=== PATIENT | female | born 1940 | race Caucasian/White ===

== ENCOUNTER 2017-11-19 15:29 | Inpatient (IN) | payer MEDICARE, OTHER ==
[~2017-11-19] VITALS: Ht 160 cm; Wt 90.7 kg
--- NOTE | 2017-11-19 15:48 | ED Fall/Injury ---
General Stated Complaint: FALL/R ANKLE FX Source: patient Exam Limitations: no limitations History of Present Illness Date Seen by Provider: Nov 19, 2017 Time Seen by Provider: 15:42 Initial Comments The patient is a 77-year-old white female who presents by ambulance with the a fall at her home and an obvious ankle fracture. The patient relates that she was preparing to enter their swimming pool for the purposes of starting to clean it up in order to refill the pool. She slipped and fell to the ground with right ankle pain. Ambulance reported to us ahead of time that they had a deformed right ankle and a medial traumatic laceration. Occurred: just prior to arrival Injuries/Pain Location: lower extremity Context: lost balance, slipped Loss of Consciousness: no loss of consciousness Allergies and Home Medications Patient Home Medication List Home Medication List Reviewed: No Review of Systems Review of Systems Constitutional: see HPI Eyes: No Symptoms Reported Ears, Nose, Mouth, Throat: no symptoms reported Respiratory: no symptoms reported Cardiovascular: no symptoms reported Gastrointestinal: no symptoms reported Genitourinary: no symptoms reported Musculoskeletal: see HPI Skin: see HPI Psychiatric/Neurological: No Symptoms Reported Physical Exam Vital Signs Capillary Refill : Height, Weight, BMI Height: '" Weight: lbs. oz. 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 There is a 10 cm or greater jagged laceration over the medial distal tibia. Distal to the laceration there is a bony deformity with distraction medially and the foot presents lateral to the midline. Daphne Coma Score Best Eye Response: (4) Open Spontaneously Best Verbal Response: (5) Oriented Best Motor Response: (6) Obeys Commands Progress/Results/Core Measures Results/Orders Lab Results Laboratory Tests Test 11/19/17 15:39 Range/Units White Blood Count 11.9 H 4.3-11.0 10^3/uL Red Blood Count 4.20 L 4.35-5.85 10^6/uL Hemoglobin 12.8 11.5-16.0 G/DL Hematocrit 38 35-52 % Mean Corpuscular Volume 90 80-99 FL Mean Corpuscular Hemoglobin 31 25-34 PG Mean Corpuscular Hemoglobin Concent 34 32-36 G/DL Red Cell Distribution Width 13.4 10.0-14.5 % Platelet Count 331 130-400 10^3/uL Mean Platelet Volume 10.3 7.4-10.4 FL Neutrophils (%) (Auto) 58 42-75 % Lymphocytes (%) (Auto) 32 12-44 % Monocytes (%) (Auto) 9 0-12 % Eosinophils (%) (Auto) 1 0-10 % Basophils (%) (Auto) 0 0-10 % Neutrophils # (Auto) 6.9 1.8-7.8 X 10^3 Lymphocytes # (Auto) 3.8 1.0-4.0 X 10^3 Monocytes # (Auto) 1.1 H 0.0-1.0 X 10^3 Eosinophils # (Auto) 0.2 0.0-0.3 10^3/uL Basophils # (Auto) 0.0 0.0-0.1 10^3/uL Sodium Level 140 135-145 MMOL/L Potassium Level 4.2 3.6-5.0 MMOL/L Chloride Level 105 98-107 MMOL/L Carbon Dioxide Level 21 21-32 MMOL/L Anion Gap 14 5-14 MMOL/L Blood Urea Nitrogen 18 7-18 MG/DL Creatinine 0.92 0.60-1.30 MG/DL Estimat Glomerular Filtration Rate 59 BUN/Creatinine Ratio 20 Glucose Level 94 70-105 MG/DL Calcium Level 9.6 8.5-10.1 MG/DL Corrected Calcium 9.6 8.5-10.1 MG/DL Total Bilirubin 0.7 0.1-1.0 MG/DL Aspartate Amino Transf (AST/SGOT) 14 5-34 U/L Alanine Aminotransferase (ALT/SGPT) 16 0-55 U/L Alkaline Phosphatase 63 40-136 U/L Total Protein 7.7 6.4-8.2 GM/DL Albumin 4.0 3.2-4.5 GM/DL My Orders Orders - OPAL MONTES MD Cbc With Automated Diff (11/19/17 15:37) Comprehensive Metabolic Panel (11/19/17 15:37) Ankle, Right, 3 Views (11/19/17 15:37) Cefazolin Injection (Ancef Injection) (11/19/17 15:58) Medications Given in ED Current Medications Medications Dose Ordered Sig/Carol Ann Route Start Time Stop Time Status Last Admin Dose Admin Cefazolin Sodium 1,000 mg STK-MED ONCE .ROUTE 11/19/17 15:58 11/19/17 16:02 DC 11/19/17 16:07 2,000 MG Departure Communication (Admissions) Dr. Elizabeth was informed at 1540 and is in route. r. Dr. Elizabeth arrived at 1555. He Examined the patient and she will be going from here to the emergency room Impression Primary Impression: trimalleolar fracture dislocation right ankle, open Disposition: ADMITTED INPATIENT Condition: Stable/Unchanged Admissions Decision to Admit Reason: Admit from ER (Trauma) Decision to Admit/Date: Nov 19, 2017 Time/Decision to Admit Time: 16:16 Departure-Patient Inst. Referrals: BETTYE LÓPEZ MD (PCP) Primary Care Physician OPAL MONTES MD Nov 19, 2017 15:48
[2017-11-19 15:53] LABS: BASOPHILS % (AUTO) 0 % (0-10); EOSINOPHILS # (AUTO) 0.2 10^3/uL (0.0-0.3); EOSINOPHILS % (AUTO) 1 % (0-10); HEMATOCRIT 38 % (35-52); HEMOGLOBIN 12.8 G/DL (11.5-16.0); LYMPHOCYTES # (AUTO) 3.8 X 10^3 (1.0-4.0); LYMPHOCYTES % (AUTO) 32 % (12-44); MEAN CORPUSCULAR HEMOGLOBIN 31 PG (25-34); MEAN CORPUSCULAR HGB CONC 34 G/DL (32-36); MEAN CORPUSCULAR VOLUME 90 FL (80-99); MEAN PLATELET VOLUME 10.3 FL (7.4-10.4); MONOCYTES # (AUTO) 1.1 X 10^3 (0.0-1.0); MONOCYTES % (AUTO) 9 % (0-12); NEUTROPHILS # (AUTO) 6.9 X 10^3 (1.8-7.8); NEUTROPHILS % (AUTO) 58 % (42-75); PLATELET COUNT 331 10^3/uL (130-400); RED CELL DISTRIBUTION WIDTH 13.4 % (10.0-14.5); WHITE BLOOD COUNT 11.9 10^3/uL (4.3-11.0)
[2017-11-19] MEDS ORDERED: ceFAZolin 1,000 MG/10 ML (ANCEF) VIAL ONE (15:58)
[2017-11-19 16:04] LABS: BILIRUBIN,TOTAL 0.7 MG/DL (0.1-1.0); CALCIUM 9.6 MG/DL (8.5-10.1); CREATININE SERUM 0.92 MG/DL (0.60-1.30); POTASSIUM 4.2 MMOL/L (3.6-5.0); TOTAL PROTEIN 7.7 GM/DL (6.4-8.2)
--- NOTE | 2017-11-19 16:16 | Diagnostic Imaging Report ---
EXAMINATION: Two views of the left ankle. INDICATION: Fall in pool. Ankle trauma. FINDINGS: There is a severe left ankle fracture and dislocation. The distal tibia and fibula are anteriorly dislocated relative to the talar dome. The tibia also appears to be medially dislocated relative to the talus. There are fractures of the medial malleolus and the posterior malleolus as well as apparent fractures within the distal fibula. There appears to be a large soft tissue injury overlying the medial aspect of the ankle. The bone of the distal tibia is at the skin surface and this may have been an open fracture at one time. IMPRESSION: Complex and severe left ankle fracture and dislocation with large soft tissue injury suggesting that this was likely previously an open fracture. Dictated by: Dictated on workstation # [id number]
[2017-11-19] MEDS ORDERED: ROCURONIUM 10 MG/ML 5 ML SYRINGE IV ONE (16:22)
[2017-11-19] MEDS ORDERED: ONDANSETRON 4 MG/2 ML (SDV) Z0FRAN ONE (16:22)
[2017-11-19] MEDS ORDERED: fentaNYL INJECTION 100 MCG/2 ML AMP ONE ×2 (16:22→16:27)
[2017-11-19] MEDS ORDERED: proPOfol 200 MG/20 ML (DIPRIVAN) VIAL IV ONE ×2 (16:22→17:52)
[2017-11-19] MEDS ORDERED: LIDOCAINE PF 2% 5 ML (XYLOCAINE) VIAL ONE (16:22)
[2017-11-19] MEDS ORDERED: SUCCINYLCHOLINE INJ 100 MG/5 ML SYR ONE (16:22)
[2017-11-19] MEDS ORDERED: raNItidine 50 MG/2 ML INJ (ZANTAC) ONE (16:23)
[2017-11-19] MEDS ORDERED: NS (IVPB) 50 ML ONE (16:23)
--- NOTE | 2017-11-19 16:25 | Progress Note-Pre Operative ---
Pre-Operative Progress Note H&P Reviewed The H&P was reviewed, patient examined and no changes noted. Date Seen by Provider: Nov 19, 2017 Time Seen by Provider: 16:00 Date H&P Reviewed: Nov 19, 2017 Time H&P Reviewed: 16:24 Pre-Operative Diagnosis: grade I open trimalleolar ankle fracture with complex wound CARLOS MALLOY MD Nov 19, 2017 16:25
--- NOTE | 2017-11-19 16:28 | Progress Note-Post Operative ---
Post-Operative Progess Note Surgeon (s)/General Education Professor (s) Surgeon CARLOS MALLOY MD General Education Professor: Matthew Rivera Pre-Operative Diagnosis grade I open trimalleolar ankle fracture with complex laceration Post-Operative Diagnosis grade I open, displaced medial malleolus fracture closed, displaced lateral malleolus fracture closed, displaced posterior malleolus fracture complex laceration 10 cm Procedure & Operative Findings Date of Procedure 11/19/17 Procedure Performed/Findings irrigation and debridement of right ankle excision of right medial malleolus fragments open reduction and internal fixation of right lateral malleolus closure of complex laceration 10 cm Anesthesia Type GETA Estimated Blood Loss Estimated blood loss (mL): 150 ml Specimens/Packing Specimens Removed none Packing: none CARLOS MALLOY MD Nov 19, 2017 16:28
[2017-11-19] MEDS ORDERED: LEVO75TA6 PO (16:30)
[2017-11-19] MEDS ORDERED: VALS1TAB5 PO (16:30)
[2017-11-19] MEDS ORDERED: ESOM20SU PO (16:30)
[2017-11-19] MEDS ORDERED: ATEN50TA PO (16:30)
[2017-11-19] MEDS ORDERED: POTA25TA7 PO (16:30)
[2017-11-19] MEDS ORDERED: PRAV20TA3 PO (16:30)
[2017-11-19] MEDS ORDERED: MIDAZOLAM 2 MG/2 ML (VERSED) VIAL ONE ×2 (16:39→17:53)
[2017-11-19] MEDS ORDERED: SEVOFLURANE (ULTANE) 15 ML INHAL SOLN ONE ×5 (16:40→18:30)
[2017-11-19] MEDS ORDERED: BUPIVACAINE 0.5% 30 ML (SENSORCAINE) VIAL ONE (16:43)
[2017-11-19] MEDS ORDERED: morphine INJ 10 MG/ML 1ML (SYR OR VIAL) IVP PRN (16:45)
[2017-11-19] MEDS ORDERED: ACETAMINOPHEN 325 MG TABLET PO PRN (16:45)
[2017-11-19] MEDS ORDERED: ONDANSETRON 4 MG/2 ML (SDV) Z0FRAN IVP PRN ×2 (16:45→19:00)
--- NOTE | 2017-11-19 16:53 | HISTORY AND PHYSICAL ---
DATE OF SERVICE: 11/19/2017 REASON FOR ADMISSION: 1. Grade I open displaced right medial malleolus fracture. 2. Closed displaced right lateral malleolus fracture. HISTORY: The patient is a 77-year-old female, who presented to the Emergency Department with gross deformity of her right ankle with a laceration proximal to the fracture site. She reports that she slipped in water in her pool. She reports no antecedent pain. She reports pain in her ankle. She denies paresthesias. PAST MEDICAL HISTORY: Significant for hypertension. PAST SURGICAL HISTORY: Left total knee arthroplasty. MEDICATIONS: Are listed in the chart. ALLERGIES: TO CODEINE, but the patient does tolerate hydrocodone and oxycodone. PHYSICAL EXAMINATION: GENERAL: The patient is well developed, well-nourished, in mild distress. HEENT: Normocephalic, atraumatic. Pupils are equal, round and reactive to light. Oropharynx is . NECK: Supple. No lymphadenopathy. LUNGS: Clear to auscultation bilaterally. HEART: Regular rate and rhythm. ABDOMEN: Soft, nontender, nondistended. EXTREMITIES EXAM: The right lower extremity demonstrates lateral rotation of the foot compared to the leg. There are symmetric pulses noted with brisk capillary refill. She has intact sensation throughout with intact dorsiflexion and plantarflexion of the toes. There is approximately 10 cm clean laceration proximal to the ankle joint. There is a single punctate wound at the fracture site medially. This appears to be the only area that actually communicates with the fracture. Radiographs reveal a trimalleolar right ankle fracture with displacement and lateral posterior dislocation of the talus. IMPRESSION: Right ankle fracture dislocation, grade I open medially. PLAN: The patient was given 2 grams of Ancef on arrival to the Emergency Department. We will take her emergently to the operating room for irrigation, debridement, open reduction and internal fixation of the right ankle. We discussed risks, benefits, options, ramifications and recovery with the patient and her family, they understand and wished to proceed. Job ID: [id number] DocumentID: [id number] Dictated Date: 11/19/2017 16:22:33 Independent Insurance Adjuster Date: 11/19/2017 16:53:04 Dictated By: CARLOS MALLOY MD
[2017-11-19] MEDS ORDERED: LACTATED RINGERS 1,000 ML IV PRN (16:59)
[2017-11-19] MEDS ORDERED: HYDROmorphone 2 MG/ML VIAL (DILAUDID) ONE (17:54)
--- NOTE | 2017-11-19 18:43 | Diagnostic Imaging Report ---
INDICATION: Right ankle fracture IMPRESSION: 22.7 seconds of fluoroscopy and 4 digital images were used in surgery during internal fixation of the lateral malleolus with plate and screws. Bones appear to be transfixed in good alignment. Dictated by: Dictated on workstation # [id number]
[2017-11-19] MEDS ORDERED: MEPERIDINE (DEMEROL) INJ 50 MG/ML ONE (18:57)
[2017-11-19] MEDS ORDERED: MEPERIDINE (DEMEROL) INJ 100 MG/ML IVP ONE ×2 (19:00→19:45)
[2017-11-19] MEDS ORDERED: PROMETHAZINE INJ 25 MG/ML (PHENERGAN) AMP IVP PRN (19:00)
[2017-11-19] MEDS ORDERED: morphine INJ 10 MG/ML 1ML (SYR OR VIAL) IVP ONE (19:00)
[2017-11-19] MEDS ORDERED: HYDROmorphone 2 MG/ML VIAL (DILAUDID) IV ONE ×2 (19:00→19:30)
[2017-11-19] MEDS ORDERED: MEPERIDINE (DEMEROL) INJ 50 MG/ML IVP ONE (19:30)
--- NOTE | 2017-11-19 19:51 | OPERATIVE REPORT ---
DATE OF SERVICE: 11/19/2017 PREOPERATIVE DIAGNOSES: 1. Grade I open displaced right medial malleolus fracture. 2. Closed displaced right lateral malleolus fracture. 3. Complex laceration, right leg. POSTOPERATIVE DIAGNOSES: 1. Grade I open displaced right medial malleolus fracture. 2. Closed displaced right lateral malleolus fracture. 3. Complex laceration, right leg. PROCEDURES: 1. Right ankle irrigation and debridement. 2. Open reduction and internal fixation of the right lateral malleolus. 3. Excision of right medial malleolus fragment. 4. Closure of complex laceration, right leg. SURGEON: Tejinder Elizabeth MD SUPERVISOR COVERING AND LINING: DONY Prieto, who assisted throughout the procedure and closed the incisions. ANESTHESIA: General endotracheal by Isai Gar CRNA. TOURNIQUET TIME: Not applicable. ESTIMATED BLOOD LOSS: Minimal. DRAINS: None. COMPLICATIONS: None. POSTOPERATIVE PLAN: 24 hours of IV antibiotics with admission for physical therapy and pain management. SUMMARY: The patient is a 77-year-old female, who fell at home and was found to have a deformity of her right ankle with a laceration. She was brought in by EMS and I was here shortly after her arrival. She was given 2 grams of Ancef IV. There was approximately 10 cm laceration well proximal to her ankle with a single punctate wound medially at the fracture site that appeared to be a grade I open fracture. She was neurovascularly intact. Radiographs reveal a bimalleolar fracture dislocation of the ankle. A gentle attempt at closed reduction was tried and this was not reduced. The patient was taken emergently to the operating room for operative intervention. The patient and her family understand this is a high risk wound complications and fracture complications. DESCRIPTION OF PROCEDURE: After risks and benefits of procedure were discussed and questions were answered and informed consent was signed and placed on chart, the operative site was confirmed in the preoperative holding area initialed by the surgeon. The patient was then transferred to the operating room. After adequate levels of general endotracheal anesthetic were obtained, a timeout was called confirming the operative site. The fracture dislocation was reduced easily. The right lower extremity was then prepped and draped in the usual sterile fashion. The proximal laceration was carefully probed and did not communicate with the fracture site. This was irrigated and closed with 3-0 nylon in vertical mattress interrupted fashion. The punctate wound distally was then incised opening the fracture site and irrigated with 6 liters pulse lavage. The fracture was reduced; however, there were multiple fracture fragments that could not be reapproximated nor could may be K-wired. Therefore, the fracture was excised. This wound was copiously irrigated. A 2-0 Vicryl was used to reapproximate subcutaneous tissues and skin was closed with 4-0 nylon in vertical mattress interrupted fashion. A longitudinal incision was then made over the distal fibula. The underlying soft tissues were carefully dissected. The fracture site was identified. This was transverse in nature; therefore, a lag screw could not be placed. The fracture was reduced and a 6-hole one third tubular plate was placed with two cancellous screws placed distally and three cortical screws placed proximally, all with good purchase. Fluoroscopy in AP and lateral and oblique planes revealed well reduced fracture with stable hardware. The syndesmosis and mortise were stable till live time fluoroscopy stressing. This wound was copiously irrigated, 2-0 Vicryl was used to reapproximate subcutaneous tissue and skin was closed with 4-0 nylon in a vertical mattress interrupted fashion. The incisions were infiltrated with plain Marcaine. A soft dressing and splint were applied. The patient was transported to the recovery room, awake, in stable condition. Job ID: [id number] DocumentID: [id number] Dictated Date: 11/19/2017 18:45:37 Embroidery Assistant Date: 11/19/2017 19:50:31 Dictated By: TEJINDER ELIZABETH MD
[2017-11-19 20:00] VITALS: BP 119/61
[2017-11-19] MEDS: NS IV 1000 ML 1,000 ML IV SCH (20:56)
[2017-11-19] MEDS: ceFAZolin INJECTION 1,000 MG in NS (IVPB) 50 ML IV SCH (23:36)
[2017-11-20 00:29] VITALS: BP 107/52
[2017-11-20] MEDS: oxyCODONE/APAP 5/325MG (PERCOCET 5) TABLET PO PRN ×6 (02:13→22:58)
[2017-11-20] MEDS: NS IV 1000 ML 1,000 ML IV SCH ×3 (03:14→20:56)
[2017-11-20 04:00] VITALS: BP 115/58
[2017-11-20] MEDS: ceFAZolin INJECTION 1,000 MG in NS (IVPB) 50 ML IV SCH ×3 (05:27→20:57)
[2017-11-20] MEDS ORDERED: OXYC1TAB87 PO (07:56)
--- NOTE | 2017-11-20 07:58 | Progress Note-Standard ---
Standard Progress Note Progress Notes/Assess & Plan Date Seen by Provider: Nov 20, 2017 Time Seen by Provider: 07:56 Progress/Assessment & Plan No complaints denies paresthesias Vital Signs Date Time Temp Pulse Resp B/P (MAP) Pulse Ox O2 Delivery O2 Flow Rate FiO2 11/20/17 04:00 98.8 71 20 115/58 (77) 97 Nasal Cannula 1.00 11/20/17 00:29 98.2 81 18 107/52 (70) 96 Room Air 11/19/17 20:00 96.8 67 16 119/61 (80) 99 Nasal Cannula 3.00 11/19/17 19:55 Nasal Cannula 3.00 11/19/17 16:59 88 18 143/70 99 11/19/17 15:30 97.5 79 18 158/53 (88) 97 I & O 11/20/17 07:00 Intake Total 1250 ml Output Total 950 ml Balance 300 ml RLE--in splint. intact DF and PF of toes sensation intact to light touch throughout. No pain with PROM of toes S/P I and D and ORIF R ankle PT IV abx DC this evening after abx if clears PT CARLOS MALLOY MD Nov 20, 2017 07:58
[2017-11-20 08:00] VITALS: BP 115/53
--- NOTE | 2017-11-20 10:22 | Physical Therapy Evaluation ---
PT Evaluation-General Medical Diagnosis Admission Date Nov 20, 2017 at 02:35 Medical Diagnosis: right ankle fracture Onset Date: Nov 20, 2017 Therapy Diagnosis Therapy Diagnosis: generalized weakness/debility Height/Weight Height (Feet): 5 Height (Inches): 3.00 Weight (Pounds): 200 Weight (Ounces): 0.0 Precautions Precautions/Isolations: Fall Prevention, Standard Precautions, Pressure Ulcer Weight Bear Status Right Lower Extremity: Right Touch Toe Bearing Left Lower Extremity: Left Full Weight Bearing Referral Physician: Clara Reason for Referral: Evaluation/Treatment Medical History Pertinent Medical History: HTN Current History slipped and felling getting into pool at home Reviewed History: Yes Social History Home: Single Level Current Living Status: Spouse Entry Into Home: Stairs Without Railing PT Steps Inside Home: 4 Prior/Core FIM Prior Level of Function Functional [place] Measure 0=Not Assessed/NA 4=Minimal Assistance 1=Total Assistance 5=Supervision or Setup 2=Maximal Assistance 6=Modified [place] 3=Moderate Assistance 7=Complete [place] Bed Mobility: 7 Transfers (B,C,W/C) (FIM): 7 Gait: 7 Locomotion: 7 PT Evaluation-Current Subjective Patient agrees to PT. Pain Numeric Pain Scale: 7 Location: Right Location Body Site: Ankle Pain Description: Acute Objective Patient Orientation: Normal For Age Problem Solving: Fair Attachments: IV ROM/Strength ROM Lower Extremities right ankle soft cast/left LE WFL Strength Lower Extremities right LE NT/left LE 4-/5 grossly Integumentary/Posture Integumentary refer to nursing notes Bowel Incontinence: No Bladder Incontinence: No Posture WFL Neuromuscular (Tone, Coordination, Reflexes) slightly diminished coordination due to report of fear of falling Sensory Vision: Functional Hearing: Functional Sensation Right Lower Extremit: Intact Sensation Left Lower Extremity: Intact Transfers Functional [place] Measure 0=Not Assessed/NA 4=Minimal Assistance 1=Total Assistance 5=Supervision or Setup 2=Maximal Assistance 6=Modified [place] 3=Moderate Assistance 7=Complete [place] Transfers (B, C, W/C) (FIM): 3 Scootin Rollin Supine to/from Sit: 3 Sit to/from Stand: 3 Gait Mode of Locomotion: Walk Anticipated Mode of Locomotion: Both Gait (FIM): 1 Distance (FIM): 1=up to 49 ft Distance: 2 hops Gait Level of Assist: 3 Gait Persons Needed: 1 Gait Assistive Device: FWW Comments/Gait Description able to "hop" x 2, and unable to attempt knee scooter due to fear and instability with coordination Balance Sitting Static: Normal Sitting Dynamic: Normal Standing Static: Fair Standing Dynamic: Fair Assessment/Needs 77 y.o. female, will benefit from skilled PT to address functional strength and mobility to improve current LOF and to safely return to home with spouse at maximum LOF. From a PT standpoint, patient would benefit from ARU to ensure safe return to home. Rehab Potential: Fair PT Territory Manager Goals Prison Goals PT Prison Goals Time Frame: Dec 02, 2017 Transfers (B,C,W/C) (FIM): 6 Gait (FIM): 1 Gait distance (FIM): 1=up to 49 ft Distance: 10' Gait Level of Assist: 5 Gait Assistive Device: FWW Stairs (FIM): 2 # of Steps: 4 Stairs Level Of Assist: 4 PT Plan Problem List Problem List: Activity Tolerance, Functional Strength, Safety, Balance, Gait, Transfer, Bed Mobility Treatment/Plan Treatment Plan: Continue Plan of Care Treatment Plan: Bed Mobility, Education, Functional Activity Main, Functional Strength, Gait, Safety, Therapeutic Exercise, Transfers Treatment Duration: Dec 02, 2017 Frequency: 11 times per week Estimated Hrs Per Day: .5 hour per day Patient and/or Family Agrees t: Yes Discharge Recommendations Therapy D/C Recommendations: Acute Rehab Time/GCodes Time In: 840 Time Out: 910 Total Billed Treatment Time: 30 Total Billed Treatment 1 visit EVModC 17 min FA 13 min G Codes Necessary: KAELYN Klein PT Nov 20, 2017 10:22
[2017-11-20] MEDS ORDERED: PRAV10TA PO (10:55)
[2017-11-20] MEDS ORDERED: ATEN25TA PO (10:55)
[2017-11-20] MEDS ORDERED: ESOM20CA58 PO (10:55)
[2017-11-20] MEDS ORDERED: POTA10CA43 PO (10:55)
[2017-11-20] MEDS ORDERED: VALS1TAB72 PO (10:55)
[2017-11-20] MEDS ORDERED: LYSI500T3 PO (11:00)
[2017-11-20] MEDS ORDERED: ASPI-983 PO (11:00)
[2017-11-20 12:00] VITALS: BP 126/60
[2017-11-20] MEDS ORDERED: NON-FORMULARY MEDICATION 1 EA EA (Esomeprazole Magnesium (Nexium 24Hr) 20 MG) PO SCH ×2 (12:30→21:00)
[2017-11-20] MEDS: PANTOPRAZOLE 20 MG TABLET (PROTONIX) PO SCH ×2 (13:27→20:58)
--- NOTE | 2017-11-20 14:12 | Physical Therapy Daily Note ---
PT Daily Note-Current Subjective Patient reports fatigue but agrees to PT. Pain Numeric Pain Scale: 8 Location: Right Location Body Site: Ankle Pain Description: Acute Mental Status Patient Orientation: Normal For Age Attachments: IV Transfers Functional [place] Measure 0=Not Assessed/NA 4=Minimal Assistance 1=Total Assistance 5=Supervision or Setup 2=Maximal Assistance 6=Modified [place] 3=Moderate Assistance 7=Complete IndependenceIRFPAI Quality Coding Scale 6 Independent with activity with or without an assistive device 5 Patient requires set up or clean up by helper. Patient completes activity by themselves 4 Supervision or touching assist (CGA). [place] provide cues , steadying assist 3 The helper provides less than half the effort to complete the activity 2 The helper provides more than half the effort to complete the activity 1 Dependent. The helper does all the effort to complete an activity 7 Patient refused to complete or attempt activity 9 The patient did not perform the activity before the current illness or injury 88 Not attempted due to Medical conditions or safety concerns Transfers (B, C, W/C) (FIM): 4 Scootin Supine to/from Sit: 4 Sit to/from Stand: 4 Bed to/from Chair: 4 minimal assist with all mobility Weight Bearing Right Lower Extremity: Right Touch Toe Bearing Left Lower Extremity: Left Full Weight Bearing Gait Training Gait (FIM): 1 Distance (FIM): 1=up to 49 ft Distance: 3 hops Gait Level of Assist: 3 Gait Persons Needed: 1 Gait Assistive Device: FWW slightly unsteady Exercises Supine Ex: Quad Set, Heel Slides, Straight leg raise, Hip abd/add Supine Reps: 15 Seated Therapy Exercises: Long arc quads Seated Reps: 15 Assessment Patient improving with treatment plan and returned to bed with needs met. PT to increase activity as tolerated by patient. PT Cover Maker Goals [facility]dc Goals PT Cover Maker Goals Time Frame: Dec 02, 2017 Transfers (B,C,W/C) (FIM): 6 Gait (FIM): 1 Gait distance (FIM): 1=up to 49 ft Distance: 10' Gait Level of Assist: 5 Gait Assistive Device: FWW Stairs (FIM): 2 # of Steps: 4 Stairs Level Of Assist: 4 PT Plan Treatment/Plan Treatment Plan: Continue Plan of Care Treatment Plan: Bed Mobility, Education, Functional Activity Main, Functional Strength, Gait, Safety, Therapeutic Exercise, Transfers Treatment Duration: Dec 02, 2017 Frequency: 11 times per week Estimated Hrs Per Day: .5 hour per day Patient and/or Family Agrees t: Yes Time/GCodes Time In: 1307 Time Out: 1330 Total Billed Treatment Time: 23 Total Billed Treatment 1 visit EX 14 min FA 9 min KAELYN PAREDES PT Nov 20, 2017 14:12
[2017-11-20 15:27] VITALS: BP 112/56
[2017-11-20] MEDS ORDERED: CALCIUM CARBONATE 500 MG (TUMS) TAB.CHEW PO PRN (16:15)
[2017-11-20] MEDS ORDERED: KCL 10 MEQ TAB (MICRO K) PO SCH (17:00)
[2017-11-20 20:18] VITALS: BP 119/56
[2017-11-20] MEDS ORDERED: HYDROCHLOROTHIAZIDE PO SCH (21:00)
[2017-11-20] MEDS ORDERED: ATENOLOL 25 MG (TENORMIN) TAB PO SCH (21:00)
[2017-11-20] MEDS ORDERED: ASPIRIN E.C. 81 MG (ECOTRIN) TAB PO SCH (21:00)
[2017-11-20] MEDS ORDERED: LYSINE 500 MG PO SCH (21:00)
[2017-11-20] MEDS ORDERED: VALSARTAN PO SCH (21:00)
[2017-11-20] MEDS ORDERED: [UNRECOGNIZED DRUG - OTHER] PO SCH (21:00)
[2017-11-20] MEDS ORDERED: HYDROCHLOROTHIAZIDE 12.5 MG (HCTZ) CAP PO SCH (21:00)
[2017-11-20] MEDS ORDERED: SIMvastatin 10 MG (ZOCOR) TAB PO SCH (21:00)
[2017-11-20] MEDS ORDERED: LEVOTHYROXINE 75 MCG (LEVOTHROID) TABLET PO SCH (21:00)
[2017-11-20] MEDS ORDERED: VALSARTAN 80 MG (DIOVAN) TAB PO SCH (21:00)
[2017-11-20] MEDS ORDERED: NON-FORMULARY MEDICATION 1 EA EA (Potassium Chloride 10 MEQ) PO SCH (21:00)
[2017-11-20] MEDS ORDERED: NON-FORMULARY MEDICATION 1 EA EA (Pravastatin Sodium 10 MG) PO SCH (21:00)
[2017-11-21 00:38] VITALS: BP 121/58
--- NOTE | 2017-11-21 01:39 | DISCHARGE SUMMARY ---
DATE OF SERVICE: 11/20/2017 DISCHARGE DIAGNOSES: 1. Grade I open right trimalleolar ankle fracture/dislocation. 2. Hypertension. PROCEDURES: Open reduction and internal fixation of right ankle with closure of complex laceration and irrigation and debridement. SUMMARY: The patient is a 77-year-old female who presented to the Emergency Department with a right ankle fracture dislocation. There was a punctate open area distally at the fracture site, proximally there was a laceration approximately 10 cm in length and did not communicate with the fracture. The fracture was grade I open on the medial aspect. She underwent open reduction and internal fixation with irrigation, debridement and closure of her complex laceration. She received 2 grams of Ancef on arrival to the Emergency Department. There was no gross contamination of the wound. She was admitted for 24 hours of IV antibiotics, physical therapy and pain management. At the time of discharge, she was neurovascularly intact with intact dorsiflexion, plantar flexion toes. Brisk capillary refill and intact sensation throughout. She cleared physical therapy. ACTIVITIES: Toe touch weightbearing right lower extremity. MEDICATIONS: Home medications, Percocet as needed for pain. FOLLOWUP: Is in two weeks. DIET: Regular. Job ID: [id number] DocumentID: [id number] Dictated Date: 11/20/2017 07:54:25 Trust Advisor Date: 11/21/2017 01:38:27 Dictated By: CARLOS MALLOY MD
[2017-11-21 04:00] VITALS: BP 131/58
[2017-11-21] MEDS: ceFAZolin INJECTION 1,000 MG in NS (IVPB) 50 ML IV SCH (05:22)
[2017-11-21] MEDS: oxyCODONE/APAP 5/325MG (PERCOCET 5) TABLET PO PRN (05:22)
--- NOTE | 2017-11-21 07:01 | Progress Note-Standard ---
Standard Progress Note Progress Notes/Assess & Plan Date Seen by Provider: Nov 21, 2017 Time Seen by Provider: 07:00 Progress/Assessment & Plan No complaints denies paresthesias Vital Signs Date Time Temp Pulse Resp B/P (MAP) Pulse Ox O2 Delivery O2 Flow Rate FiO2 11/20/17 04:00 98.8 71 20 115/58 (77) 97 Nasal Cannula 1.00 11/20/17 00:29 98.2 81 18 107/52 (70) 96 Room Air 11/19/17 20:00 96.8 67 16 119/61 (80) 99 Nasal Cannula 3.00 11/19/17 19:55 Nasal Cannula 3.00 11/19/17 16:59 88 18 143/70 99 11/19/17 15:30 97.5 79 18 158/53 (88) 97 I & O 11/20/17 07:00 Intake Total 1250 ml Output Total 950 ml Balance 300 ml RLE--in splint. intact DF and PF of toes sensation intact to light touch throughout. No pain with PROM of toes S/P I and D and ORIF R ankle PT IV abx DC this evening after abx if clears PT Final Diagnosis No complaints Vital Signs Date Time Temp Pulse Resp B/P (MAP) Pulse Ox O2 Delivery O2 Flow Rate FiO2 11/21/17 04:00 98.0 62 20 131/58 (82) 97 Room Air 11/21/17 00:38 121/58 (79) 11/20/17 23:22 98.9 71 20 95 Room Air 11/20/17 23:12 Nasal Cannula 1.00 11/20/17 20:18 99.7 80 20 119/56 (77) 97 Room Air 11/20/17 15:27 98.1 73 16 112/56 (74) 94 11/20/17 12:00 97.8 80 20 126/60 (82) 96 Room Air 11/20/17 08:00 98.7 80 20 115/53 (73) 97 Nasal Cannula 1.00 11/20/17 08:00 Room Air I & O 11/21/17 07:00 Intake Total 3700 ml Output Total 1600 ml Balance 2100 ml RLE--NVI. splint well postitioned. No pain with PROM of toes s/p ORIF R ankle to IRF today CARLOS MALLOY MD Nov 21, 2017 07:01
--- NOTE | 2017-11-21 07:06 | Anesthesia-General Post-Op ---
General Patient Condition Mental Status/LOC: Same as Preop Cardiovascular: Satisfactory Nausea/Vomiting: Absent Respiratory: Satisfactory Pain: Controlled Complications: Absent Post Op Complications Complications None Follow Up Care/Instructions Patient Instructions None needed. Anesthesia/Patient Condition Patient Condition Patient is doing well, no complaints, stable vital signs, no apparent adverse anesthesia problems. No complications reported per nursing. HEATHER ECHEVARRIA CRNA Nov 21, 2017 07:06
[2017-11-21] MEDS ORDERED: ENOXAPARIN 40 MG/0.4 ML (LOVENOX) SYR SC SCH (07:15)
[2017-11-21] MEDS: NS IV 1000 ML 1,000 ML IV SCH (07:48)
[2017-11-21 08:00] VITALS: BP 137/64
[2017-11-21 11:45] VITALS: BP 137/64
[2017-12-06] MEDS ORDERED: TRAZ-189 PO (14:27)
[2017-12-06] MEDS ORDERED: OXYC1TAB87 PO (14:27)
== END 2017-11-21 11:45 | DRG 494 ==
LOC: EDUNIT# 15:29 → ER 15:30 → SDC 16:10 → 4TH 20:54 → SDC 11-20 02:34 → 4TH 11-20 02:35
PROVIDERS: ADMIT Orthopaedic Surgery; ATTEND Orthopaedic Surgery
PROC: 0QBG0ZZ Excision of Right Tibia, Open Approach (ICD-10-PCS; 2017-11-19)
PROC: 0JQN0ZZ Repair Right Lower Leg Subcutaneous Tissue and Fascia, Open Approach (ICD-10-PCS; 2017-11-19)
PROC: 0QSJ04Z Reposition Right Fibula with Internal Fixation Device, Open Approach (ICD-10-PCS; principal; 2017-11-19 17:05)
DX: S82.851B Displaced trimalleolar fracture of right lower leg, initial encounter for open fracture type I or II (principal); S81.811A Laceration without foreign body, right lower leg, initial encounter; I10 Essential (primary) hypertension; Z96.652 Presence of left artificial knee joint; W01.0XXA Fall on same level from slipping, tripping and stumbling without subsequent striking against object, initial encounter; Y92.016 Swimming-pool in single-family (private) house or garden as the place of occurrence of the external cause
CPT/HCPCS: 36415; 73610; 80053; 85025; 94664; 96374; 96375

== ENCOUNTER 2017-11-21 11:11 | Inpatient (IN) | payer MEDICARE, OTHER ==
[~2017-11-21] VITALS: Ht 160 cm; Wt 91.0 kg
[~2017-11-21 11:11] MED LIST: ASPI-983 PO; ATEN25TA PO; ATEN50TA PO; ESOM20CA58 PO; ESOM20SU PO; LEVO75TA6 PO; LYSI500T3 PO; OXYC1TAB87 PO; POTA10CA43 PO; POTA25TA7 PO; PRAV10TA PO; PRAV20TA3 PO; VALS1TAB5 PO; VALS1TAB72 PO
[2017-11-21 11:45] VITALS: BP 126/75
[2017-11-21] MEDS ORDERED: oxyCODONE/APAP 5/325MG (PERCOCET 5) TABLET PO PRN (12:30)
--- NOTE | 2017-11-21 13:45 | Physical Therapy Evaluation ---
PT Evaluation-General Medical Diagnosis Admission Date Nov 21, 2017 at 11:45 Medical Diagnosis: right ankle fracture Onset Date: Nov 19, 2017 Therapy Diagnosis Therapy Diagnosis: generalized weakness/debility Height/Weight Height (Feet): 5 Height (Inches): 3.00 Weight (Pounds): 200 Weight (Ounces): 0.0 Precautions Precautions/Isolations: Standard Precautions Weight Bear Status Right Lower Extremity: Right Touch Toe Bearing Left Lower Extremity: Left Full Weight Bearing Referral Physician: Alexander Reason for Referral: Evaluation/Treatment Medical History Pertinent Medical History: HTN Current History s/p slipped in pool resulting in right ankle fracture Reviewed History: Yes Social History Home: Multilevel Current Living Status: Spouse Entry Into Home: Stairs Without Railing PT Steps Inside Home: 4 Prior/Core FIM Prior Level of Function Functional [place] Measure 0=Not Assessed/NA 4=Minimal Assistance 1=Total Assistance 5=Supervision or Setup 2=Maximal Assistance 6=Modified [place] 3=Moderate Assistance 7=Complete [place] Bed Mobility: 7 Transfers (B,C,W/C) (FIM): 7 Gait: 7 Locomotion: 7 PT Evaluation-Current Subjective Patient agrees to participate with PT. Pain Numeric Pain Scale: 5-Moderate Pain Location: Right Location Body Site: Ankle Pain Description: Acute Objective Patient Orientation: Normal For Age Problem Solving: Fair Attachments: IV ROM/Strength ROM Lower Extremities right ankle NT/right LE WFL/ left LE WFL Strenght Lower Extremities right LE 3-/5 grossly/left LE 4-/5 grossly Integumentary/Posture Integumentary refer to nursing notes Bowel Incontinence: No Bladder Incontinence: No Posture WFL Neuromuscular (Tone, Coordination, Reflexes) grossly intact Sensory Vision: Functional Hearing: Functional Sensation Right Lower Extremit: Intact Sensation Left Lower Extremity: Intact Transfers Functional [place] Measure 0=Not Assessed/NA 4=Minimal Assistance 1=Total Assistance 5=Supervision or Setup 2=Maximal Assistance 6=Modified [place] 3=Moderate Assistance 7=Complete IndependenceIRFPAI Quality Coding Scale 6 Independent with activity with or without an assistive device 5 Patient requires set up or clean up by helper. Patient completes activity by themselves 4 Supervision or touching assist (CGA). [place] provide cues , steadying assist 3 The helper provides less than half the effort to complete the activity 2 The helper provides more than half the effort to complete the activity 1 Dependent. The helper does all the effort to complete an activity 7 Patient refused to complete or attempt activity 9 The patient did not perform the activity before the current illness or injury 88 Not attempted due to Medical conditions or safety concerns Transfers (B, C, W/C) (FIM): 3 Scootin Rollin Roll Left to Right (QC): 5 Supine to/from Sit: 4 Sit to/from Stand: 3 bed t/f WC(FIM only if WC use): 3 Sit to Lying (QC): 4 Lying to Sitting/Side of Bed(Q: 4 Sit to Stand (QC): 3 Chair/Xrb-sl-Jjwsx Xfer(QC): 3 Car Transfer (QC): 4 Gait Does the Patient Walk?: No and Walking Goal IS indicated Mode of Locomotion: Both Anticipated Mode of Locomotion: Both Gait (FIM): 1 Distance (FIM): 1=up to 49 ft Walk 10 feet (QC): 88 Walk 50 ft with 2 Turns(QC): 88 Walk 150 ft (QC): 88 Walking 10ft/uneven surface-QC: 88 Distance: 2 hops with minimal foot clearance left foot Gait Level of Assist: 3 Gait Persons Needed: 1 Gait Assistive Device: FWW Comments/Gait Description Patient is very fearful of falling and is apprehensive to perform gait training with TTWB right LE Wheelchair Training Does the Pt Use a Wheelchair?: Yes Wheelchair (FIM): 2 Wheelchair Distance (FIM): 3=778-56 ft Distance: 60' x 4 Wheelchair Level of Assist: 4 Wheel 50 ft with 2 turns (QC): 4 Wheel 150 ft (QC): 88 Type of Wheelchair: Manual (60' x 4) Stairs If not tested on admit;explain Patient unable to perform due to inability to clear left foot with use of FWW to clear a step due to weakness. Balance Sitting Static: Normal Sitting Dynamic: Normal Standing Static: Fair Standing Dynamic: Fair Picking up an Object (QC): 4 Assessment/Needs 77 y.o. female, will benefit from skilled PT to address functional strength and mobility to improve current LOF. Patient is currently limited with all gross motor skills due to weakness. Rehab Potential: Fair PT Ch[facility] Goals Route Sales Specialist Goals PT Ch[facility] Goals Time Frame: Dec 09, 2017 Transfers (B,C,W/C) (FIM): 6 Sit to Lying (QC): 6 Lying-Sitting on Side/Bed(QC): 6 Sit to Stand (QC): 6 Rollin Roll Left to Right (QC): 6 Chair/Bwr-we-Ognna Xfer(QC): 6 Car Transfer (QC): 6 Does the Patient Walk: No and Walking Goal IS indicated Gait (FIM): 1 Gait distance (FIM): 1=up to 49 ft Distance: 10' Walk 10 feet (QC): 5 Walk 10ft-Uneven Surface(QC): 88 Walk 50ft with 2 Turns (QC): 88 Walk 150 ft (QC): 88 Gait Level of Assist: 5 Gait Assistive Device: FWW Wheelchair (FIM): 6 Wheelchair distance (FIM): 5=942-73 ft Distance: 125' Wheelchair Level of Assist: 6 Wheel 50 feet with 2 turns (QC: 6 Stairs (FIM): 2 # of Steps: 4 1 Step (curb) (QC): 3 4 Steps (QC): 3 12 Steps (QC): 88 Stairs Level Of Assist: 3 Picking up an Object (QC): 5 PT Plan Problem List Problem List: Activity Tolerance, Functional Strength, Safety, Balance, Gait, Transfer, Bed Mobility Treatment/Plan Treatment Plan: Continue Plan of Care Treatment Plan: Bed Mobility, Concurrent Therapy, Education, Functional Activity Main, Functional Strength, Group Therapy, Gait, Safety, Therapeutic Exercise, Transfers Treatment Duration: Dec 09, 2017 Frequency: At least 5 of 7 days/Wk (IRF) Estimated Hrs Per Day: 1.5 hours per day Patient and/or Family Agrees t: Yes Safety Risks/Education Patient Education: Safety Issues Teaching Recipient: Health Care Proxy Response to Teaching: Verbalize Understanding Discharge Recommendations Therapy D/C Recommendations: Home w/ Family Support, Physical Therapy Home Care Time/GCodes Time In: 1145 Time Out: 1230 Total Billed Treatment Time: 45 Total Billed Treatment 1 visit EVModC 28 min FA 17 min KAELYN PAREDES PT Nov 21, 2017 13:45
--- NOTE | 2017-11-21 13:55 | Physical Therapy Daily Note ---
PT Daily Note-Current Subjective Patient reports fatigue. Pain Numeric Pain Scale: 5-Moderate Pain Location: Right Location Body Site: Ankle Pain Description: Acute Mental Status Patient Orientation: Normal For Age Attachments: IV Transfers Functional [place] Measure 0=Not Assessed/NA 4=Minimal Assistance 1=Total Assistance 5=Supervision or Setup 2=Maximal Assistance 6=Modified [place] 3=Moderate Assistance 7=Complete IndependenceIRFPAI Quality Coding Scale 6 Independent with activity with or without an assistive device 5 Patient requires set up or clean up by helper. Patient completes activity by themselves 4 Supervision or touching assist (CGA). [place] provide cues , steadying assist 3 The helper provides less than half the effort to complete the activity 2 The helper provides more than half the effort to complete the activity 1 Dependent. The helper does all the effort to complete an activity 7 Patient refused to complete or attempt activity 9 The patient did not perform the activity before the current illness or injury 88 Not attempted due to Medical conditions or safety concerns Transfers (B, C, W/C) (FIM): 4 Scootin Rollin Roll Left to Right (QC): 5 Supine to/from Sit: 4 Sit to/from Stand: 4 Sit to Lying (QC): 4 Sit to Stand (QC): 4 Chair/Cms-gj-[place] Xfer(QC): 4 Bed to/from Chair: 4 Car Transfer (QC): 4 sit to stand x 5 sets to improve strength Weight Bearing Right Lower Extremity: Right Touch Toe Bearing Left Lower Extremity: Left Full Weight Bearing Gait Training Does the Patient Walk?: No and Walking Goal IS indicated Wheelchair Training Does the Pt Use a Wheelchair?: Yes Wheelchair (FIM): 2 Wheelchair Distance: 2=286-62 ft Distance: 60' Wheelchair Level of Assist: 4 Wheel 50 ft with 2 turns (QC): 4 Type of Wheelchair: Manual Exercises Supine Ex: Ankle pumps (left only), Quad Set, Heel Slides, Straight leg raise Supine Reps: 15 (3 sets) Seated Therapy Exercises: Long arc quads, Hip flexion Seated Reps: 15 (3 sets) Assessment Patient tolerated treatment well and returned to bed with needs met. PT to increase activity as tolerated by patient. PT Short Term Goals Short Term Goals Wheelchair Distance: 60' x 4 PT Alf Goals Alf Goals PT Alf Goals Time Frame: Dec 09, 2017 Transfers (B,C,W/C) (FIM): 6 Sit to Lying (QC): 6 Lying-Sitting on Side/Bed(QC): 6 Sit to Stand (QC): 6 Rollin Roll Left to Right (QC): 6 Chair/Aga-ne-Glvss Xfer(QC): 6 Car Transfer (QC): 6 Does the Patient Walk: No and Walking Goal IS indicated Gait (FIM): 1 Gait distance (FIM): 1=up to 49 ft Distance: 10' Walk 10 feet (QC): 5 Walk 10ft-Uneven Surface(QC): 88 Walk 50ft with 2 Turns (QC): 88 Walk 150 ft (QC): 88 Gait Level of Assist: 5 Gait Assistive Device: FWW Wheelchair (FIM): 6 Wheelchair distance (FIM): 7=085-99 ft Distance: 125' Wheelchair Level of Assist: 6 Wheel 50 feet with 2 turns (QC: 6 Stairs (FIM): 2 # of Steps: 4 1 Step (curb) (QC): 3 4 Steps (QC): 3 12 Steps (QC): 88 Stairs Level Of Assist: 3 Picking up an Object (QC): 5 PT Plan Treatment/Plan Treatment Plan: Continue Plan of Care Treatment Plan: Bed Mobility, Concurrent Therapy, Education, Functional Activity Main, Functional Strength, Group Therapy, Gait, Safety, Therapeutic Exercise, Transfers Treatment Duration: Dec 09, 2017 Frequency: At least 5 of 7 days/Wk (IRF) Estimated Hrs Per Day: 1.5 hours per day Patient and/or Family Agrees t: Yes Time/GCodes Time In: 1305 Time Out: 1350 Total Billed Treatment Time: 45 Total Billed Treatment 1 visit EX x 2 31 min FA 14 min KAELYN PAREDES PT Nov 21, 2017 13:55
--- NOTE | 2017-11-21 14:37 | Occupational Therapy Eval ---
OT Evaluation-General/PLF Medical Diagnosis Admission Date Nov 21, 2017 at 11:45 Medical Diagnosis: right ankle fracture Onset Date: Nov 19, 2017 Therapy Diagnosis Therapy Diagnosis: decr self care, weakness, decr funct mob, decr act tolerance Height/Weight Height (Feet): 5 Height (Inches): 3.00 Weight (Pounds): 200 Weight (Ounces): 0.0 Precautions Precautions/Isolations: Standard Precautions Weight Bear Status Weight Bearing Restriction: Touch Toe Bearing Location Restriction: R LE Referral Physician: Alexander Referral Reason: Evaluation/Treatment Medical History Pertinent Medical History: HTN Additional Medical History L TKA. Old R shoulder injury, per pt report Current History Fell while cleaning pool. Surgical repair R ankle fx 11-19-17 Reviewed History: Yes Social History Home: Multilevel Current Living Status: Spouse Entry Into Home: Stairs Without Railing Steps Inside Home: 4 ADL-Prior Level of Function ADL PLOF Comments Pt reported that she was previously able to manage all of her basic self care needs and home care tasks. She still drives and is retired. DME/Equipment: Bath Bench, Grab Bars, Shower, Tub OT Current Status Subjective Pt seen in room, up in w/c, agreeable to OT. Pain reported 0/10 Appearance Alert, cooperative Mental Status/Objective Patient Orientation: Person, Place, Time, Situation Attachments: IV Current Glasses/Contacts: Yes Hearing Aids: No Dentures/Partials: No Hand Dominance: Right Upper Extremity ROM Grossly WFL bilat Upper Extremity Sensation No problems, per pt report Upper Extremity Strength Grossly 4/5 bilat ADL-Treatment ADL-Current Pt completed lunch, then brushed teeth at sink. Toileting with SPT on/off BSC over toilet. pt left up in w/c by bed, all needs met. Functional [place] Measure 0=Not Assessed/NA 4=Minimal Assistance 1=Total Assistance 5=Supervision or Setup 2=Maximal Assistance 6=Modified [place] 3=Moderate Assistance 7=Complete IndependenceIRFPAI Quality Coding Scale 6 Independent with activity with or without an assistive device 5 Patient requires set up or clean up by helper. Patient completes activity by themselves 4 Supervision or touching assist (CGA). [place] provide cues , steadying assist 3 The helper provides less than half the effort to complete the activity 2 The helper provides more than half the effort to complete the activity 1 Dependent. The helper does all the effort to complete an activity 7 Patient refused to complete or attempt activity 9 The patient did not perform the activity before the current illness or injury 88 Not attempted due to Medical conditions or safety concerns Eating (FIM): 7 (She was able to open packages, cut up food, feed herself without help. No dentures) Eating (QC): 6 Grooming (FIM): 5 (Brushed teeth at sink with help setting up w/c and positioning. ) Oral Hygiene (QC): 5 (setup) Toileting (FIM): 2 (Help with clothing management getting on and off toilet. managed hygiene. BSC over toilet) Toileting Hygiene (QC): 2 Toilet/Commode Transfer (FIM): 3 (On/off BSC over toilet, SPT w/c to BSC and back, using grab bars. Min assist transferring back to w/c, after practice and problem solving) Toilet Transfer (QC): 3 Education OT Patient Education: Correct positioning, Modified ADL techniques, Purpose of tx/functional activities, Rehab process, Safety issues, Transfer techniques Teaching Recipient: Patient Teaching Methods: Demonstration Response to Teaching: Reinforcement Needed OT Short Term Goals Short Term Goals Time Frame: Nov 28, 2017 Toileting(FIM): 4 Toilet/Commode Transfer(FIM): 4 Additional Short Term Goals: 1-Demonstrate ADL Tasks, 2-Verbalize Understanding , 3-ImproveStrength/Main 1=Demonstrate adherence to instructed precautions during ADL tasks. 2=Patient will verbalize/demonstrate understanding of assistive devices/ modifications for ADL. 3=Patient will improve strength/tolerance for activity to enable patient to perform ADL's. OT Research Physicist Goals Alf Goals Time Frame: Dec 09, 2017 Eating (FIM): 7 Eating (QC): 6 Groomin Oral Hygiene (QC): 6 Bathing(FIM): 6 Shower/Bathe Self (QC): 6 Upper Body Dressing(FIM): 6 Upper Body Dressing (QC): 6 Lower Body Dressing(FIM): 6 Lower Body Dressing (QC): 6 On/Off Footwear (QC): 6 Toileting(FIM): 6 Toileting Hygiene (QC): 6 Toilet/Commode Transfer(FIM): 6 Toilet/Commode Transfer (QC): 6 Shower Transfer(FIM): 6 Additional Goals: 1-Demonstrate ADL Tasks, 2-Verbalize Understanding, 3- ImproveStrength/Main 1=Demonstrate adherence to instructed precautions during ADL tasks. 2=Patient will verbalize/demonstrate understanding of assistive devices/ modifications for ADL. 3=Patient will improve strength/tolerance for activity to enable patient to perform ADL's. OT Education/Plan Problem List/Assessment Assessment: Decreased Activ Tolerance, Decreased UE Strength, Dependent Transfers, Impaired Self-Care Skills Pt would benefit from skilled OT to increase her independence in basic self care after a fall with ankle fracture, Discharge Recommendations Plan/Recommendations: Continue POC Treatment Plan/Plan of Care Treatment,Training & Education: Yes Patient would benefit from OT for education, treatment and training to promote independence in ADL's, mobility, safety and/or upper extremity function for ADL' s. Plan of Care: ADL Retraining, Functional Mobility, UE Funct Exercise/Act, UE Neuromus Re-Ed/Coord, OTHER (energy conservation education) Treatment Duration: Dec 09, 2017 Frequency: At least 5 of 7 days/Wk (IRF) Estimated Hrs Per Day: 1.5 hours per day Agreement: Yes Rehab Potential: Fair Time/GCodes Start Time: 12:30 Stop Time: 13:05 Total Time Billed (hr/min): 35 Billed Treatment Time visit, 15 minutes evaluation moderate intensity, [address] OT Nov 21, 2017 14:36
--- NOTE | 2017-11-21 15:46 | Occupational Ther Daily Note ---
OT Current Status-Daily Note Subjective Pt seen in room, up in bed, agreeable to OT. Decided she would like to shower in the morning instead of this afternoon. Appearance Alert, cooperative, fatigued Mental Status/Objective Functional [place] Measure 0=Not Assessed/NA 4=Minimal Assistance 1=Total Assistance 5=Supervision or Setup 2=Maximal Assistance 6=Modified [place] 3=Moderate Assistance 7=Complete [place] ADL-Treatment Able to slowly move L leg to EOB and scoot to prepare for transfer. Min assist sit to stand and turn to sit in w/c. When she returned to room, toileted and left up in w/c for speech. Functional [place] Measure 0=Not Assessed/NA 4=Minimal Assistance 1=Total Assistance 5=Supervision or Setup 2=Maximal Assistance 6=Modified [place] 3=Moderate Assistance 7=Complete IndependenceIRFPAI Quality Coding Scale 6 Independent with activity with or without an assistive device 5 Patient requires set up or clean up by helper. Patient completes activity by themselves 4 Supervision or touching assist (CGA). [place] provide cues , steadying assist 3 The helper provides less than half the effort to complete the activity 2 The helper provides more than half the effort to complete the activity 1 Dependent. The helper does all the effort to complete an activity 7 Patient refused to complete or attempt activity 9 The patient did not perform the activity before the current illness or injury 88 Not attempted due to Medical conditions or safety concerns Toileting (FIM): 2 (Help with managing clothing but completed hygiene. BSC over toilet ) Toilet/Commode Transfer (FIM): 3 (Mod assist to come up off w/c to transfer to BSC and min italo to come up off BSC t transfer back. used FWW and SPT. ) Other Treatment Pt propelled w/c to gym and back - about 50 feet. Cues to lock brakes. Completed 12 minutes bilat UE exercise on arm bike set at 12W resistance, with one brief recovery period. To strengthen arms to help with transfers. Education OT Patient Education: Progress toward Goal/Update tx plan, Purpose of tx/ functional activities, Safety issues, Transfer techniques Teaching Recipient: Patient Teaching Methods: Discussion Response to Teaching: Verbalize Understanding, Return Demonstration OT Short Term Goals Short Term Goals Time Frame: Nov 28, 2017 Toileting(FIM): 4 Toilet/Commode Transfer(FIM): 4 Additional Short Term Goals: 1-Demonstrate ADL Tasks, 2-Verbalize Understanding , 3-ImproveStrength/Main 1=Demonstrate adherence to instructed precautions during ADL tasks. 2=Patient will verbalize/demonstrate understanding of assistive devices/ modifications for ADL. 3=Patient will improve strength/tolerance for activity to enable patient to perform ADL's. OT Permit Specialist Goals Permit Specialist Goals Time Frame: Dec 09, 2017 Eating (FIM): 7 Eating (QC): 6 Groomin Oral Hygiene (QC): 6 Bathing(FIM): 6 Shower/Bathe Self (QC): 6 Upper Body Dressing(FIM): 6 Upper Body Dressing (QC): 6 Lower Body Dressing(FIM): 6 Lower Body Dressing (QC): 6 On/Off Footwear (QC): 6 Toileting(FIM): 6 Toileting Hygiene (QC): 6 Toilet/Commode Transfer(FIM): 6 Toilet/Commode Transfer (QC): 6 Shower Transfer(FIM): 6 Additional Goals: 1-Demonstrate ADL Tasks, 2-Verbalize Understanding, 3- ImproveStrength/Main 1=Demonstrate adherence to instructed precautions during ADL tasks. 2=Patient will verbalize/demonstrate understanding of assistive devices/ modifications for ADL. 3=Patient will improve strength/tolerance for activity to enable patient to perform ADL's. OT Education/Plan Problem List/Assessment Pt would benefit from skilled OT to increase her independence in basic self care after a fall with ankle fracture, Discharge Recommendations Plan/Recommendations: Continue POC Treatment Plan/Plan of Care Patient would benefit from OT for education, treatment and training to promote independence in ADL's, mobility, safety and/or upper extremity function for ADL' s. Plan of Care: ADL Retraining, Functional Mobility, UE Funct Exercise/Act, UE Neuromus Re-Ed/Coord, OTHER (energy conservation education) Treatment Duration: Dec 09, 2017 Frequency: At least 5 of 7 days/Wk (IRF) Estimated Hrs Per Day: 1.5 hours per day Agreement: Yes Rehab Potential: Fair Time/GCodes Start Time: 14:50 Stop Time: 15:30 Total Time Billed (hr/min): 40 Billed Treatment Time visit, 15 minutes ADL, [address] OT Nov 21, 2017 15:46
[2017-11-21] MEDS ORDERED: CALCIUM CARBONATE 500 MG (TUMS) TAB.CHEW PO PRN (16:15)
[2017-11-21] MEDS ORDERED: ACETAMINOPHEN 325 MG TABLET PO PRN (16:15)
[2017-11-21 16:21] VITALS: BP 121/70
--- NOTE | 2017-11-21 16:21 | PM&R Post Admission Assessment ---
Post Admission Physician Asses Date seen by provider: Nov 21, 2017 Time seen by provider: 14:00 The preadmission screen agrees with the post admission assessment that the patient is a good candidate for inpatient rehabilitation. The patient will have a comprehensive program of inpatient rehabilitation with a goal of maximizing level of functional independence prior to discharge home with spouse. The patient will have PT/OT ninety minutes per day, each discipline, five days a week for 10 days for gait, strengthening, conditioning , balance, ADLs, any patient/family/caregiver training as necessary. Speech therapy to do cognitive assessment and treat as indicated. Rehabilitation nursing to assist with bowel, bladder, skin, wound care, medication administration, pain management. Printer'S Assistant to assist with discharge planning, community reentry. SCD's and Lovenox subcut for DVT prophylaxis. She appears to be well motivated to participate in three hours of therapy a day. She should be able to tolerate three hours of therapy a day from a medical standpoint. She should benefit from the three hours of therapy a day. She has a reasonable discharge plan, reasonable discharge rehabilitation goals and a supportive family. She has various comorbidities that need to be closely monitored with medications and treatments adjusted on a daily basis as needed. These include: HTN Pain mangement Barriers to discharge for this patient who had been independent prior to this are for her to be modified independent to supervision for ADLs and mobility skills prior to discharge home with spouse, so as to lessen the burden of the caregivers. Risks for this patient include: 1. Fall 2. Fracture 3. DVT 4. Pulmonary embolism 5. Wound infection 6. Skin breakdown 7. Contractures 8. Poorly controlled pain 9. Urinary retention 10. UTI 11. Respiratory infection 12. Aspiration 13. Poorly controlled HTN Estimated Length of Stay: 10days Prognosis: Rehab prognosis appears good for goal of discharge home with spouse modified independent to supervision for ADLs and mobility skills.at the w/c level of function dddue to TTWB [facility] code 08.9 Etiologic DX Grade 1open displaced RT medial malleolus Fracture General: Alert, Oriented X3, Cooperative, No Acute Distress HEENT: Atraumatic, PERRLA, EOMI, Mucous Memb Moist/[place] Neck: Supple, No JVD Lungs: Clear to Auscultation Heart: Regular Rate Abdomen: Normal Bowel Sounds, Soft Extremities: Other (Dressing rt ankle) Neuro: Other (Functional strength Sensation intact Cognition intact) JACI RITTER MD Nov 21, 2017 16:21
--- NOTE | 2017-11-21 16:41 | ST Cognitive Linguistic Eval ---
Speech Evaluation-General Medical Diagnosis right ankle fracture Onset Date: Nov 19, 2017 Therapy Diagnosis Therapy Diagnosis: Cognition Precautions Precautions/Isolations: Standard Precautions Referral Referring Physician: Dr. Munoz Reason for Referral: Evaluation/Treatment Medical History Pertinent Medical History: HTN Reviewed History: Yes Social History Current Living Status: Spouse Speech PLF-Current Status Prior Level of Function independent Subjective pleasant...didn't appear to please with this exam. Language Eval: Auditory Comprehends Simple Yes/No Ques: Functional Follows 1-Step Commands: Functional Follows Complex Directions: Functional Follows General Conversations: Functional Language Eval: Verbal Language Completes Spontaneous Greeting: Functional Produces Auto, Serial Info: Functional Word Finding: Functional Requests Basic Needs: Functional States Basic Personal Info: Functional Expresses Complex Ideas: Functional Cognitive Patient Orientation oriented x3 Objective Cognitive Domain Attention: WNL Memory: WNL Problem Solving: Functional Objective Results [facility] was administered to assess cognitive-linguistic functioning. Results are as follows" 3 word memory was 3/3 for immediate, delayed and remotely delayed. Sequencing was 4/4 correct. Problem Solving was 10/11 correct. Speech/language was WNL Oral Motor/Speech Production WNL Impression Functional cognitive-linguistic functioning. Communication/Social Cognition Comprehension: 7 Expression: 7 Social Interaction: 7 Problem Solvin Memory: 7 Speech Patient Assess Expression of Ideas/Wants: Expression (4) Understanding Verbal Content: Understands (4) Brief Interview-Mental Status: Yes Repetition of Three Words: Three (3) Temporal Orientation: Year: Correct (3) Temporal Orientation: Month: Accurate within 5 days(2) Temporal Orientation: Day: Correct (1) Recall : Wear to say "Sock": Yes, no cue required (2) Recall : Color: Yes, no cue required (2) Recall : Bed: Yes, no cue required (2) Speech-Plan Patient/Family Goals Patient/Family Goals: to return home. Treatment Plan Speech Therapy Treatment Plan: Discontinue ST skilled ST not indicated. Frequency: Modified Program (IRF) (0) Estimated Hrs Per Day: Other (0) Rehab Potential: Good Pt/Family Agrees to Plan: Yes Safety Risks/Education Teaching Recipient: Patient Teaching Methods: Discussion Response to Teaching: Verbalize Understanding (0705) Time Speech Therapy Time In: 15:05 Speech Therapy Time Out: 15:25 Total Billed Time: 20 Billed Treatment Time 1, PREET Wilks Nov 21, 2017 16:41
[2017-11-21] MEDS: KCL 10 MEQ TAB (MICRO K) PO SCH (16:43)
--- NOTE | 2017-11-21 16:50 | HISTORY AND PHYSICAL ---
DATE OF SERVICE: 11/21/2017 CHIEF COMPLAINT: Difficulty with walking. HISTORY OF PRESENT ILLNESS: The patient is a 77-year-old female who lives in [place], [place] with her spouse who was working on her swimming pool when she slipped and fell and sustained an open right ankle fracture with medial traumatic laceration. The patient was admitted to [facility] with Dr. Elizabeth, orthopedic surgeon did repair the patient's toe-touch weightbearing postoperatively. She underwent emergency irrigation and debridement of right ankle open reduction and internal fixation right lateral malleolus, excision of medial malleolus fragment, closure of complex laceration. Postoperative diagnosis was grade I open displaced medial malleolus fracture, closed displaced lateral malleolus fracture, closed displaced posterior malleolus fracture, complex laceration 10 cm. She was evaluated by therapist and felt to be appropriate for inpatient rehabilitation unit. She had been independent prior to this. Currently, she requires assistance for her ADLs and mobility skills. She is mod assist for transfers and gait with a front wheel walker toe-touch weightbearing right lower extremity. Strength of right lower extremity 3-/5 grossly. Left lower extremity 4-/5. Strength of both upper limbs 4/5. She is right hand dominant. She is independent for eating, set up for grooming, max assist for toilet transfers and lower body dressing, mod assist for upper body dressing. PAST MEDICAL HISTORY: Hypertension. She is followed by a physician in [place]. ALLERGIES: CODEINE. FAMILY HISTORY: Noncontributory. SOCIAL HISTORY: As per above. REVIEW OF SYSTEMS: A 10-point review of systems significant for fall, ankle pain. MEDICATIONS: Lovenox 40 mg subQ daily for DVT prophylaxis, ASA 81 mg p.o. each day at bedtime, atenolol 12.5 mg p.o. each day at bedtime, hydrochlorothiazide 12.5 mg p.o. each day at bedtime, Synthroid 75 mcg p.o. each day at bedtime, Protonix 40 mg p.o. each day at bedtime, Zocor 5 mg p.o. each day at bedtime, valsartan 80 mg p.o. each day at bedtime. KCl 10 mEq p.o. daily, calcium carbonate 1-2 tablets p.o. q.6 hours p.r.n. indigestion, Tylenol 650 mg p.o. q.4 hours p.r.n. mild pain, Percocet 5 /325 one to 2 tablets p.o. q.4 hours p.r.n. moderate pain. PHYSICAL EXAMINATION: GENERAL: Significant for a pleasant female sitting in chair in no acute distress. VITAL SIGNS: She is afebrile, pulse 68, respirations 18, blood pressure 126/75, O2 sat 92% on room air. HEENT: Vision, speech, hearing grossly intact. No oral lesion is noted. NECK: Supple without mass. HEART: Regular rhythm. CHEST: Clear. ABDOMEN: Soft, nontender, bowel sounds present. EXTREMITIES: Right ankle is wrapped. There is no lower leg edema, no calf tenderness on the left. MUSCULOSKELETAL: She has functional active range of motion both upper limbs and left lower limb. NEUROLOGIC: Cognition grossly intact. Sensation grossly intact to touch. Strength as per above. IMPRESSION: 1. Ambulatory dysfunction secondary to fall with resulting grade I open displaced right medial malleolus fracture and closed displaced right lateral malleolus fracture and complex laceration right leg status post open reduction and internal fixation Dr. Elizabeth and debridement and closure of complex laceration right leg toe-touch weightbearing right lower extremity. 2. Hypertension, controlled with medication. 3. DVT ropphylaxis on Lovenox sub cut PLAN: The patient will have a comprehensive program of inpatient rehabilitation with goal of maximizing level of functional independence prior to discharge home with spouse focusing on wheelchair level of function due to toe-touch weightbearing right lower extremity. The patient will have PT, OT 90 minutes per day each discipline, 5 days a week for 10 days. Please see post-admission physician evaluation for details of plan of care. Speech therapy to do cognitive assessment and treat as indicated. Rehabilitation nursing to assist with bowel, bladder, skin, wound care, medication administration, pain management and social insurance analyst with discharge planning, community reentry. Follow up with Dr. Elizabeth as per his schedule. ESTIMATED LENGTH OF STAY: 10 days. PROGNOSIS: Rehab prognosis appears good for goal of discharging home with spouse, modified independent to supervision for ADLs and mobility skills at the wheelchair level of function. DIET: Regular. CODE STATUS: Full code. Job ID: [id number] DocumentID: [id number] Dictated Date: 11/21/2017 16:15:45 Director Of Sports Performance Date: 11/21/2017 16:50:07 Dictated By: JACI RITTER MD MTDD
[2017-11-21 20:56] VITALS: BP 148/87
[2017-11-21] MEDS ORDERED: RELABEL FOR HOME USE MC SCH (21:00)
[2017-11-21] MEDS ORDERED: PANTOPRAZOLE 20 MG TABLET (PROTONIX) PO SCH (21:00)
[2017-11-21] MEDS: ASPIRIN E.C. 81 MG (ECOTRIN) TAB PO SCH (21:01)
[2017-11-21] MEDS: HYDROCHLOROTHIAZIDE 12.5 MG (HCTZ) CAP PO SCH (21:01)
[2017-11-21] MEDS: VALSARTAN 80 MG (DIOVAN) TAB PO SCH (21:01)
[2017-11-21] MEDS: LEVOTHYROXINE 75 MCG (LEVOTHROID) TABLET PO SCH (21:01)
[2017-11-21] MEDS: ATENOLOL 25 MG (TENORMIN) TAB PO SCH (21:01)
[2017-11-21] MEDS: ESOMEPRAZOLE 20 MG PO SCH (21:02)
[2017-11-21] MEDS: SIMvastatin 10 MG (ZOCOR) TAB PO SCH (21:02)
[2017-11-22] MEDS: oxyCODONE/APAP 5/325MG (PERCOCET 5) TABLET PO PRN ×3 (01:20→13:02)
[2017-11-22 05:37] VITALS: BP 153/70
[2017-11-22] MEDS: ENOXAPARIN 40 MG/0.4 ML (LOVENOX) SYR SC SCH (06:20)
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
--- NOTE | 2017-11-22 08:45 | PM & R (SOAP) Progress Note ---
Subjective This was a face to face visit with the patient. Date Seen by Provider: Nov 22, 2017 Time Seen by Provider: 07:45 Subjective/Events-last exam Patient was seen in her room this AM Patient mod assist for transfers Review of Systems Musculoskeletal: leg pain Objective Physician Exam Last Set of Vital Signs Vital Signs Date Time Temp Pulse Resp B/P (MAP) Pulse Ox O2 Delivery O2 Flow Rate FiO2 11/22/17 05:37 97.9 76 16 153/70 (97) 96 Room Air Capillary Refill : Less Than 3 Seconds I&O Intake and Output 11/21/17 23:59 Intake Total 1100 ml Balance 1100 ml Intake Oral 800 ml IV Total 300 ml # Voids 3 # Bowel Movements 1 Daily Weight Change No General: Alert, Oriented X3, Cooperative, No Acute Distress HEENT: Atraumatic, PERRLA, EOMI, Mucous Memb Moist/[place] Neck: Supple, No JVD Lungs: Clear to Auscultation Heart: Regular Rate Abdomen: Normal Bowel Sounds, Soft Extremities: Other (Dressing rt ankle) Neuro: Other (Functional strength Sensation intact Cognition intact) Assessment/Plan Assessment and Plan Rt Ankle pain s/p repair HTN controlled DVT prophylaxis on Lovenox subcut Plan Continue PT/OT Team Conference later today-see report for full functional update and POC and ELOS Co-Morbidities that are continuing to impact the rehab process: (include details ) JACI RITTER MD Nov 22, 2017 08:45
--- NOTE | 2017-11-22 09:15 | Progress Note-Standard ---
Standard Progress Note Progress Notes/Assess & Plan Date Seen by Provider: Nov 22, 2017 Time Seen by Provider: 07:27 Progress/Assessment & Plan feeling better RLE--in splint NVI s/p I and D and ORIF r ankle TTWB RLE CARLOS MALLOY MD Nov 22, 2017 09:15
--- NOTE | 2017-11-22 09:35 | Physical Therapy Daily Note ---
PT Daily Note-Current Subjective Pt sitting on BSC upon arrival. Pt agrees to PT. Pain Numeric Pain Scale: 4 Location: Right Location Body Site: Ankle Pain Description: Ache, Tingling Mental Status Patient Orientation: Person, Place, Time, Situation Attachments: Other-See Comments (RLE Cast ) Transfers Functional [place] Measure 0=Not Assessed/NA 4=Minimal Assistance 1=Total Assistance 5=Supervision or Setup 2=Maximal Assistance 6=Modified [place] 3=Moderate Assistance 7=Complete IndependenceIRFPAI Quality Coding Scale 6 Independent with activity with or without an assistive device 5 Patient requires set up or clean up by helper. Patient completes activity by themselves 4 Supervision or touching assist (CGA). [place] provide cues , steadying assist 3 The helper provides less than half the effort to complete the activity 2 The helper provides more than half the effort to complete the activity 1 Dependent. The helper does all the effort to complete an activity 7 Patient refused to complete or attempt activity 9 The patient did not perform the activity before the current illness or injury 88 Not attempted due to Medical conditions or safety concerns Scootin Sit to/from Stand: 4 Sit to Stand (QC): 4 Weight Bearing Right Lower Extremity: Right Touch Toe Bearing Left Lower Extremity: Left Full Weight Bearing Gait Training Does the Patient Walk?: Yes Distance (FIM): 1=up to 49 ft Distance: 5' Gait Level of Assist: 4 Gait Persons Needed: 1 Gait Assistive Device: FWW Pt has slow marcie & hopping gait pattern. Pt is very anxious about ambulating due to fear of falling. WAXER reassures pt. Exercises Seated Therapy Exercises: Ankle pumps, Long arc quads, Hip flexion, Kicking activity, Hip abd/add Seated Reps: 20 Treatments Pt transfers from BSC to Standing using FWW at [facility]. Pt ambulates to recliner to rest. Dr Gutierrez arrives during ambulation to ask pt some questions. Pt transfers from standing to sitting in recliner then completes Seated Ex. WAXER & pt discuss how ARU works, daily schedules, what PT vs OT does, as well as what pt can expect with her PT tx. Pt advises what PT pt has received in past and rests at end of tx. Pt has all needs met and OT arrives at end of tx. Assessment Current Status: Good Progress Pt is still very anxious about ambulation and fear of falling. Pt continues need more work on strengthening & activity tolerance. PT Short Term Goals Short Term Goals Wheelchair Distance: 60' PT Client Care Manager Goals Client Care Manager Goals PT Client Care Manager Goals Time Frame: Dec 09, 2017 Transfers (B,C,W/C) (FIM): 6 Sit to Lying (QC): 6 Lying-Sitting on Side/Bed(QC): 6 Sit to Stand (QC): 6 Rollin Roll Left to Right (QC): 6 Chair/Tws-ex-Ulpdx Xfer(QC): 6 Car Transfer (QC): 6 Does the Patient Walk: No and Walking Goal IS indicated Gait (FIM): 1 Gait distance (FIM): 1=up to 49 ft Distance: 10' Walk 10 feet (QC): 5 Walk 10ft-Uneven Surface(QC): 88 Walk 50ft with 2 Turns (QC): 88 Walk 150 ft (QC): 88 Gait Level of Assist: 5 Gait Assistive Device: FWW Wheelchair (FIM): 6 Wheelchair distance (FIM): 1=599-02 ft Distance: 125' Wheelchair Level of Assist: 6 Wheel 50 feet with 2 turns (QC: 6 Stairs (FIM): 2 # of Steps: 4 1 Step (curb) (QC): 3 4 Steps (QC): 3 12 Steps (QC): 88 Stairs Level Of Assist: 3 Picking up an Object (QC): 5 PT Plan Problem List Problem List: Activity Tolerance, Functional Strength, Safety, Balance, Gait, Transfer Treatment/Plan Treatment Plan: Continue Plan of Care Treatment Plan: Bed Mobility, Concurrent Therapy, Education, Functional Activity Main, Functional Strength, Group Therapy, Gait, Safety, Therapeutic Exercise, Transfers Treatment Duration: Dec 09, 2017 Frequency: At least 5 of 7 days/Wk (IRF) Estimated Hrs Per Day: 1.5 hours per day Patient and/or Family Agrees t: Yes Safety Risks/Education Patient Education: Gait Training, Transfer Techniques, Correct Positioning, Safety Issues Teaching Recipient: Patient Teaching Methods: Discussion Response to Teaching: Verbalize Understanding Time/GCodes Time In: 815 Time Out: 900 Total Billed Treatment Time: 45 Total Billed Treatment 1, EX (15m) & FA x2 (30m) G Codes Necessary: MILANA Stroud WAXER Nov 22, 2017 09:35
--- NOTE | 2017-11-22 10:12 | Occupational Ther Daily Note ---
OT Current Status-Daily Note Subjective Pt alert, sitting in recliner. No c/o pain. Pt agrees to therapy and taking a shower. Mental Status/Objective Patient Orientation: Person, Place, Time, Situation Functional [place] Measure 0=Not Assessed/NA 4=Minimal Assistance 1=Total Assistance 5=Supervision or Setup 2=Maximal Assistance 6=Modified [place] 3=Moderate Assistance 7=Complete [place] ADL-Treatment Offered pt street clothing to work on dressing. Pt declined at this time and requested to use hospital gown. Pt educated pt on how to don sock using sock aid , pt able to demonstrate and complete donning sock using sock aid. Pt given AE for lower body dressing. Functional [place] Measure 0=Not Assessed/NA 4=Minimal Assistance 1=Total Assistance 5=Supervision or Setup 2=Maximal Assistance 6=Modified [place] 3=Moderate Assistance 7=Complete IndependenceIRFPAI Quality Coding Scale 6 Independent with activity with or without an assistive device 5 Patient requires set up or clean up by helper. Patient completes activity by themselves 4 Supervision or touching assist (CGA). [place] provide cues , steadying assist 3 The helper provides less than half the effort to complete the activity 2 The helper provides more than half the effort to complete the activity 1 Dependent. The helper does all the effort to complete an activity 7 Patient refused to complete or attempt activity 9 The patient did not perform the activity before the current illness or injury 88 Not attempted due to Medical conditions or safety concerns Grooming (FIM): 6 (Pt able to complete in while sitting in w/c. ) Oral Hygiene (QC): 6 Bathing (FIM): 4 (SBA, Pt uses grabbars, hand held shower and shower bench for stability. Pt unable to reach lower L leg, lower R leg is in cast. Long handle sponge will be given. Verbal cue to use hand held shower and adjust temperature.) Bathing Location: L Arm, R Arm, L Upper Leg, R Upper Leg, R Lower Leg ( including foot) (in cast), Chest, Abdomen, Buttocks, Perineal Area Shower/Bathe Self (QC): 3 On/Off Footwear (QC): 2 (Pt attempted to don/doff socks by self, could not complete. ) Transfers (B, C, W/C) (FIM): 4 (Min A for sit to stand/stand to sit, CGA for SPT using FWW and hand rails for stability.) Shower Transfer(FIM): 4 (CGA, Pt needed verbal cue for strategy on hand placement for transfer. Pt uses shower bench, grabbars and w/c for stability on SPT.) Pt set up for applying makeup sitting in recliner. After therapy, pt sitting in recliner with call light/ phone within reach, ice packs applied to R knee. All needs met in room. OT Short Term Goals Short Term Goals Time Frame: Nov 28, 2017 Toileting(FIM): 4 Toilet/Commode Transfer(FIM): 4 Additional Short Term Goals: 1-Demonstrate ADL Tasks, 2-Verbalize Understanding , 3-ImproveStrength/Main 1=Demonstrate adherence to instructed precautions during ADL tasks. 2=Patient will verbalize/demonstrate understanding of assistive devices/ modifications for ADL. 3=Patient will improve strength/tolerance for activity to enable patient to perform ADL's. OT Mold Hoister Goals Mold Hoister Goals Time Frame: Dec 09, 2017 Eating (FIM): 7 Eating (QC): 6 Groomin Oral Hygiene (QC): 6 Bathing(FIM): 6 Shower/Bathe Self (QC): 6 Upper Body Dressing(FIM): 6 Upper Body Dressing (QC): 6 Lower Body Dressing(FIM): 6 Lower Body Dressing (QC): 6 On/Off Footwear (QC): 6 Toileting(FIM): 6 Toileting Hygiene (QC): 6 Toilet/Commode Transfer(FIM): 6 Toilet/Commode Transfer (QC): 6 Shower Transfer(FIM): 6 Additional Goals: 1-Demonstrate ADL Tasks, 2-Verbalize Understanding, 3- ImproveStrength/Amin 1=Demonstrate adherence to instructed precautions during ADL tasks. 2=Patient will verbalize/demonstrate understanding of assistive devices/ modifications for ADL. 3=Patient will improve strength/tolerance for activity to enable patient to perform ADL's. OT Education/Plan Problem List/Assessment Pt would benefit from skilled OT to increase her independence in basic self care after a fall with ankle fracture, Discharge Recommendations Plan/Recommendations: Continue POC Treatment Plan/Plan of Care Patient would benefit from OT for education, treatment and training to promote independence in ADL's, mobility, safety and/or upper extremity function for ADL' s. Plan of Care: ADL Retraining, Functional Mobility, UE Funct Exercise/Act, UE Neuromus Re-Ed/Coord, OTHER (energy conservation education) Treatment Duration: Dec 09, 2017 Frequency: At least 5 of 7 days/Wk (IRF) Estimated Hrs Per Day: 1.5 hours per day Agreement: Yes Rehab Potential: Good Time/GCodes Start Time: 09:00 Stop Time: 10:00 Total Time Billed (hr/min): 60 Billed Treatment Time 1 visit- ADL 4 (60 min) GLADIS JACK Nov 22, 2017 10:12
[2017-11-22] MEDS: DOCUSATE SODIUM 100 MG (COLACE) CAP PO SCH ×2 (11:49→20:42)
--- NOTE | 2017-11-22 14:00 | Occupational Ther Daily Note ---
OT Current Status-Daily Note Subjective Pt awake, sitting in recliner. No co/o pain. Pt agrees to therapy. Mental Status/Objective Functional [place] Measure 0=Not Assessed/NA 4=Minimal Assistance 1=Total Assistance 5=Supervision or Setup 2=Maximal Assistance 6=Modified [place] 3=Moderate Assistance 7=Complete [place] ADL-Treatment Functional [place] Measure 0=Not Assessed/NA 4=Minimal Assistance 1=Total Assistance 5=Supervision or Setup 2=Maximal Assistance 6=Modified [place] 3=Moderate Assistance 7=Complete IndependenceIRFPAI Quality Coding Scale 6 Independent with activity with or without an assistive device 5 Patient requires set up or clean up by helper. Patient completes activity by themselves 4 Supervision or touching assist (CGA). [place] provide cues , steadying assist 3 The helper provides less than half the effort to complete the activity 2 The helper provides more than half the effort to complete the activity 1 Dependent. The helper does all the effort to complete an activity 7 Patient refused to complete or attempt activity 9 The patient did not perform the activity before the current illness or injury 88 Not attempted due to Medical conditions or safety concerns Transfers (B, C, W/C) (FIM): 4 (CGA, Pt uses FWW and w/c for stability. ) Other Treatment Pt maneuvered w/c to therapy gym. Pt completed resistive pegs increasing fine motor and hand strength needed for transfers. Pt completed arm bike for 12 min 15 kumar resistance increasing UE strength needed for transfers. PT took over care in therapy gym. All needs met. OT Short Term Goals Short Term Goals Time Frame: Nov 28, 2017 Toileting(FIM): 4 Toilet/Commode Transfer(FIM): 4 Additional Short Term Goals: 1-Demonstrate ADL Tasks, 2-Verbalize Understanding , 3-ImproveStrength/Main 1=Demonstrate adherence to instructed precautions during ADL tasks. 2=Patient will verbalize/demonstrate understanding of assistive devices/ modifications for ADL. 3=Patient will improve strength/tolerance for activity to enable patient to perform ADL's. OT Roller Checker Goals Roller Checker Goals Time Frame: Dec 09, 2017 Eating (FIM): 7 Eating (QC): 6 Groomin Oral Hygiene (QC): 6 Bathing(FIM): 6 Shower/Bathe Self (QC): 6 Upper Body Dressing(FIM): 6 Upper Body Dressing (QC): 6 Lower Body Dressing(FIM): 6 Lower Body Dressing (QC): 6 On/Off Footwear (QC): 6 Toileting(FIM): 6 Toileting Hygiene (QC): 6 Toilet/Commode Transfer(FIM): 6 Toilet/Commode Transfer (QC): 6 Shower Transfer(FIM): 6 Additional Goals: 1-Demonstrate ADL Tasks, 2-Verbalize Understanding, 3- ImproveStrength/Main 1=Demonstrate adherence to instructed precautions during ADL tasks. 2=Patient will verbalize/demonstrate understanding of assistive devices/ modifications for ADL. 3=Patient will improve strength/tolerance for activity to enable patient to perform ADL's. OT Education/Plan Problem List/Assessment Pt would benefit from skilled OT to increase her independence in basic self care after a fall with ankle fracture, Discharge Recommendations Plan/Recommendations: Continue POC Treatment Plan/Plan of Care Patient would benefit from OT for education, treatment and training to promote independence in ADL's, mobility, safety and/or upper extremity function for ADL' s. Plan of Care: ADL Retraining, Functional Mobility, UE Funct Exercise/Act, UE Neuromus Re-Ed/Coord, OTHER (energy conservation education) Treatment Duration: Dec 09, 2017 Frequency: At least 5 of 7 days/Wk (IRF) Estimated Hrs Per Day: 1.5 hours per day Agreement: Yes Rehab Potential: Good Time/GCodes Start Time: 13:20 Stop Time: 13:50 Total Time Billed (hr/min): 30 Billed Treatment Time 1 visit- EX 2 (30 min) GLADIS JACK Nov 22, 2017 14:00
--- NOTE | 2017-11-22 14:42 | Physical Therapy Daily Note ---
PT Daily Note-Current Subjective Pt sitting in [facility] in Therapy Gym. Pt agrees to PT despite anxiety over transfers. Pain Numeric Pain Scale: 3 Location: Right Location Body Site: Ankle Pain Description: Ache Mental Status Patient Orientation: Person, Place, Time, Situation Attachments: Other-See Comments (RLE cast) Transfers Functional [place] Measure 0=Not Assessed/NA 4=Minimal Assistance 1=Total Assistance 5=Supervision or Setup 2=Maximal Assistance 6=Modified [place] 3=Moderate Assistance 7=Complete IndependenceIRFPAI Quality Coding Scale 6 Independent with activity with or without an assistive device 5 Patient requires set up or clean up by helper. Patient completes activity by themselves 4 Supervision or touching assist (CGA). [place] provide cues , steadying assist 3 The helper provides less than half the effort to complete the activity 2 The helper provides more than half the effort to complete the activity 1 Dependent. The helper does all the effort to complete an activity 7 Patient refused to complete or attempt activity 9 The patient did not perform the activity before the current illness or injury 88 Not attempted due to Medical conditions or safety concerns Scootin Sit to/from Stand: 4 Weight Bearing Right Lower Extremity: Right Touch Toe Bearing Left Lower Extremity: Left Full Weight Bearing Wheelchair Training Does the Pt Use a Wheelchair?: Yes Wheelchair Distance: 3=150 ft Distance: 150' Wheelchair Level of Assist: 5 Wheel 50 ft with 2 turns (QC): 5 Type of Wheelchair: Manual Exercises Seated Therapy Exercises: Sit to stand Treatments Pt focused on transfers from Seated surface to [facility] and back. This was completed multiple times to both sides at Min A. Pt propels [facility] in hallway and back to room. Pt transfers back to recliner at end of tx with all needs met. Assessment Current Status: Good Progress Pt still anxious over transfers and ambulation for fear of falling although transfers are getting better. PT Short Term Goals Short Term Goals Wheelchair Distance: 60' PT Shelter Goals Housing Management Representative Goals PT Shelter Goals Time Frame: Dec 09, 2017 Transfers (B,C,W/C) (FIM): 6 Sit to Lying (QC): 6 Lying-Sitting on Side/Bed(QC): 6 Sit to Stand (QC): 6 Rollin Roll Left to Right (QC): 6 Chair/[id number] Xfer(QC): 6 Car Transfer (QC): 6 Does the Patient Walk: No and Walking Goal IS indicated Gait (FIM): 1 Gait distance (FIM): 1=up to 49 ft Distance: 10' Walk 10 feet (QC): 5 Walk 10ft-Uneven Surface(QC): 88 Walk 50ft with 2 Turns (QC): 88 Walk 150 ft (QC): 88 Gait Level of Assist: 5 Gait Assistive Device: FWW Wheelchair (FIM): 6 Wheelchair distance (FIM): 3=760-31 ft Distance: 125' Wheelchair Level of Assist: 6 Wheel 50 feet with 2 turns (QC: 6 Stairs (FIM): 2 # of Steps: 4 1 Step (curb) (QC): 3 4 Steps (QC): 3 12 Steps (QC): 88 Stairs Level Of Assist: 3 Picking up an Object (QC): 5 PT Plan Problem List Problem List: Activity Tolerance, Functional Strength, Safety, Balance, Gait, Transfer Treatment/Plan Treatment Plan: Continue Plan of Care Treatment Plan: Bed Mobility, Concurrent Therapy, Education, Functional Activity Main, Functional Strength, Group Therapy, Gait, Safety, Therapeutic Exercise, Transfers Treatment Duration: Dec 09, 2017 Frequency: At least 5 of 7 days/Wk (IRF) Estimated Hrs Per Day: 1.5 hours per day Patient and/or Family Agrees t: Yes Safety Risks/Education Patient Education: Gait Training, Transfer Techniques, Correct Positioning, W/ C Management, Safety Issues Teaching Recipient: Patient Teaching Methods: Discussion Response to Teaching: Verbalize Understanding Time/GCodes Time In: 1330 Time Out: 1400 Total Billed Treatment Time: 30 Total Billed Treatment 1, WCH (15m) & EX (15m) G Codes Necessary: MILANA Stroud IRON MINER Nov 22, 2017 14:42
[2017-11-22] MEDS: KCL 10 MEQ TAB (MICRO K) PO SCH (17:55)
[2017-11-22 18:13] VITALS: BP 117/66
[2017-11-22] MEDS: ESOMEPRAZOLE 20 MG PO SCH (20:41)
[2017-11-22] MEDS: LEVOTHYROXINE 75 MCG (LEVOTHROID) TABLET PO SCH (20:42)
[2017-11-22] MEDS: HYDROCHLOROTHIAZIDE 12.5 MG (HCTZ) CAP PO SCH (20:42)
[2017-11-22] MEDS: ASPIRIN E.C. 81 MG (ECOTRIN) TAB PO SCH (20:43)
[2017-11-22] MEDS: SIMvastatin 10 MG (ZOCOR) TAB PO SCH (20:43)
[2017-11-22] MEDS: ATENOLOL 25 MG (TENORMIN) TAB PO SCH (20:43)
[2017-11-22] MEDS: VALSARTAN 80 MG (DIOVAN) TAB PO SCH (20:43)
[2017-11-22] MEDS: POLYETHYLENE GLYCOL 17 GM (MIRALAX) PACK PO SCH (20:44)
[2017-11-23] MEDS: oxyCODONE/APAP 5/325MG (PERCOCET 5) TABLET PO PRN ×2 (00:10→19:44)
[2017-11-23 05:15] VITALS: BP 104/66
[2017-11-23 05:50] LABS: HEMOGLOBIN 10.2 G/DL (11.5-16.0); MEAN PLATELET VOLUME 10.1 FL (7.4-10.4); RED BLOOD COUNT 3.39 10^6/uL (4.35-5.85); RED CELL DISTRIBUTION WIDTH 13.6 % (10.0-14.5); WHITE BLOOD COUNT 9.4 10^3/uL (4.3-11.0)
[2017-11-23] MEDS: ENOXAPARIN 40 MG/0.4 ML (LOVENOX) SYR SC SCH (06:00)
[2017-11-23 06:08] LABS: BUN/CREATININE RATIO 15; CALCIUM 9.2 MG/DL (8.5-10.1); CARBON DIOXIDE 25 MMOL/L (21-32); CHLORIDE 104 MMOL/L (98-107); CREATININE SERUM 0.73 MG/DL (0.60-1.30); GFR ESTIMATED > 60; GLUCOSE 93 MG/DL (70-105); POTASSIUM 3.9 MMOL/L (3.6-5.0); SODIUM 140 MMOL/L (135-145)
--- NOTE | 2017-11-23 07:29 | PM & R (SOAP) Progress Note ---
Subjective This was a face to face visit with the patient. Date Seen by Provider: Nov 23, 2017 Time Seen by Provider: 07:05 Subjective/Events-last exam Patient was seen in her room this AM Patient Min assist for transfers Objective Physician Exam Last Set of Vital Signs Vital Signs Date Time Temp Pulse Resp B/P (MAP) Pulse Ox O2 Delivery O2 Flow Rate FiO2 11/23/17 05:15 97.8 60 18 104/66 (79) 96 Room Air Capillary Refill : Less Than 3 Seconds I&O Intake and Output 11/23/17 00:00 Intake Total 1280 ml Balance 1280 ml Intake Oral 1280 ml # Voids 8 General: Alert, Oriented X3, Cooperative, No Acute Distress HEENT: Atraumatic, PERRLA, EOMI, Mucous Memb Moist/[place] Neck: Supple, No JVD Lungs: Clear to Auscultation Heart: Regular Rate Abdomen: Normal Bowel Sounds, Soft Extremities: Other (Dressing rt ankle) Neuro: Other (Functional strength Sensation intact Cognition intact) Results Lab Data Laboratory Tests 11/23/17 05:33: White Blood Count 9.4, Red Blood Count 3.39L, Hemoglobin 10.2#L, Hematocrit 31L , Mean Corpuscular Volume 92, Mean Corpuscular Hemoglobin 30, Mean Corpuscular Hemoglobin Concent 33, Red Cell Distribution Width 13.6, Platelet Count 274, Mean Platelet Volume 10.1, Sodium Level 140, Potassium Level 3.9, Chloride Level 104, Carbon Dioxide Level 25, Anion Gap 11, Blood Urea Nitrogen 11, Creatinine 0.73, Estimat Glomerular Filtration Rate > 60, BUN/Creatinine Ratio 15, Glucose Level 93, Calcium Level 9.2 Assessment/Plan Assessment and Plan Rt ankle fracture s/p repair HTN controlled DVT prophylaxis on Lovenox subcut Plan Continue PT/OT Team Conference held yeaterday-see report for full functional uopdate and POC and ELOS Co-Morbidities that are continuing to impact the rehab process: (include details ) JACI RITTER MD Nov 23, 2017 07:29
--- NOTE | 2017-11-23 08:24 | Progress Note (SOAP) ---
Subjective Time Seen by Provider: 08:20 Subjective/Events-last exam Patient feeling okay today. Patient doing better and getting around and getting more secure Objective Exam Vital Signs Date Time Temp Pulse Resp B/P (MAP) Pulse Ox O2 Delivery O2 Flow Rate FiO2 11/23/17 05:15 97.8 60 18 104/66 (79) 96 Room Air 11/22/17 21:26 Room Air 11/22/17 18:13 96.9 61 20 117/66 (83) 96 Room Air 11/22/17 08:51 Room Air I & O 11/23/17 07:00 Intake Total 1720 ml Balance 1720 ml Capillary Refill : Less Than 3 Seconds General Appearance: No Apparent Distress, WD/WN HEENT: Normal ENT Inspection Neck: Full Range of Motion, Normal Inspection Respiratory: Lungs Clear, No Accessory Muscle Use, No Respiratory Distress Cardiovascular: Other (Regular) Results Lab Laboratory Tests 11/23/17 05:33 Laboratory Tests 11/23/17 05:33: White Blood Count 9.4, Red Blood Count 3.39L, Hemoglobin 10.2#L, Hematocrit 31L , Mean Corpuscular Volume 92, Mean Corpuscular Hemoglobin 30, Mean Corpuscular Hemoglobin Concent 33, Red Cell Distribution Width 13.6, Platelet Count 274, Mean Platelet Volume 10.1, Sodium Level 140, Potassium Level 3.9, Chloride Level 104, Carbon Dioxide Level 25, Anion Gap 11, Blood Urea Nitrogen 11, Creatinine 0.73, Estimat Glomerular Filtration Rate > 60, BUN/Creatinine Ratio 15, Glucose Level 93, Calcium Level 9.2 Assessment/Plan Assessment/Plan Assess & Plan/Chief Complaint Ankle fracture right. Hypertension. Irregular heartbeat. Coronary artery disease. Hyperlipidemia.. . 11/23/17. Ankle fracture) Hypertension under control. Irregular heartbeat as usual. Coronary artery disease. Hyperlipidemia Clinical Quality Measures DVT/VTE Risk/Contraindication: Risk Factor Score Per Nursin RFS Level Per Nursing on Admit: 4+=Very High AIME RODRIGUEZ DO Nov 23, 2017 08:24
[2017-11-23] MEDS: DOCUSATE SODIUM 100 MG (COLACE) CAP PO SCH ×2 (10:00→19:42)
--- NOTE | 2017-11-23 10:12 | Occupational Ther Daily Note ---
OT Current Status-Daily Note Subjective Pt on BSC when SANCHEZ/s walked into room. Pt agreed to therapy. No c/o pain. Mental Status/Objective Patient Orientation: Person, Place, Time, Situation Functional [place] Measure 0=Not Assessed/NA 4=Minimal Assistance 1=Total Assistance 5=Supervision or Setup 2=Maximal Assistance 6=Modified [place] 3=Moderate Assistance 7=Complete [place] ADL-Treatment Pt agrees to taking shower. Functional [place] Measure 0=Not Assessed/NA 4=Minimal Assistance 1=Total Assistance 5=Supervision or Setup 2=Maximal Assistance 6=Modified [place] 3=Moderate Assistance 7=Complete IndependenceIRFPAI Quality Coding Scale 6 Independent with activity with or without an assistive device 5 Patient requires set up or clean up by helper. Patient completes activity by themselves 4 Supervision or touching assist (CGA). [place] provide cues , steadying assist 3 The helper provides less than half the effort to complete the activity 2 The helper provides more than half the effort to complete the activity 1 Dependent. The helper does all the effort to complete an activity 7 Patient refused to complete or attempt activity 9 The patient did not perform the activity before the current illness or injury 88 Not attempted due to Medical conditions or safety concerns Grooming (FIM): 6 (Pt able to complete at w/c level. ) Oral Hygiene (QC): 6 Bathing (FIM): 5 (SBA,Pt able to complete using shower bench, hand held shower , long handled sponge and grabbars. ) Bathing Location: L Arm, R Arm, L Upper Leg, R Upper Leg, L Lower Leg ( including foot), Chest, Abdomen, Buttocks, Perineal Area Shower/Bathe Self (QC): 4 Upper Body (FIM): 5 (Set up, pt able to complete at w/c level. ) Upper Body Dressing (QC): 5 Lower Body Dressing (FIM): 5 (Set up, pt able to complete by self using AE needing verbal cue or technique, SBA. Pt uses FWW and w/c for stability, SBA. ) Lower Body Dressing (QC): 4 On/Off Footwear (QC): 3 (Pt able to complete by self using sock aid, Assist with pulling up and adjusting sock. ) Toileting (FIM): 4 (Min A, perineal area cleaning. Pt using FWW and BSC for stability.) Toileting Hygiene (QC): 3 Transfers (B, C, W/C) (FIM): 4 (SBA, pt able to complete using FWW and arm rails for stability. ) Toilet/Commode Transfer (FIM): 5 (SBA, pt able to complete using FWW and BSC for stability. ) Toilet Transfer (QC): 4 Shower Transfer(FIM): 5 (SBA, pt uses grabbars,w/c and shower bench for transfer. Pt needed verbal cue for strategy and hand placement. ) Other Treatment Pt maneuvered self in w/c to therapy gym. Pt completed UE strengthening exercise needed for transfers and daily functional tasks using arm bike for 8 min/15 kumar resistance and alternating R/L 3 sets 1 exercise 2# arm wt /15 reps. Pt maneuvered self using w/c back to room. After therapy, pt sitting in recliner, applying makeup. Call light/phone within reach. All needs met in room. Education OT Patient Education: Use of adapted equipment OT Short Term Goals Short Term Goals Time Frame: Nov 28, 2017 Toileting(FIM): 4 Toilet/Commode Transfer(FIM): 4 Additional Short Term Goals: 1-Demonstrate ADL Tasks, 2-Verbalize Understanding , 3-ImproveStrength/Main 1=Demonstrate adherence to instructed precautions during ADL tasks. 2=Patient will verbalize/demonstrate understanding of assistive devices/ modifications for ADL. 3=Patient will improve strength/tolerance for activity to enable patient to perform ADL's. OT Manager Project Goals [place] Goals Time Frame: Dec 09, 2017 Eating (FIM): 7 Eating (QC): 6 Groomin Oral Hygiene (QC): 6 Bathing(FIM): 6 Shower/Bathe Self (QC): 6 Upper Body Dressing(FIM): 6 Upper Body Dressing (QC): 6 Lower Body Dressing(FIM): 6 Lower Body Dressing (QC): 6 On/Off Footwear (QC): 6 Toileting(FIM): 6 Toileting Hygiene (QC): 6 Toilet/Commode Transfer(FIM): 6 Toilet/Commode Transfer (QC): 6 Shower Transfer(FIM): 6 Additional Goals: 1-Demonstrate ADL Tasks, 2-Verbalize Understanding, 3- ImproveStrength/Main 1=Demonstrate adherence to instructed precautions during ADL tasks. 2=Patient will verbalize/demonstrate understanding of assistive devices/ modifications for ADL. 3=Patient will improve strength/tolerance for activity to enable patient to perform ADL's. OT Education/Plan Problem List/Assessment Pt would benefit from skilled OT to increase her independence in basic self care after a fall with ankle fracture, Discharge Recommendations Plan/Recommendations: Continue POC Treatment Plan/Plan of Care Patient would benefit from OT for education, treatment and training to promote independence in ADL's, mobility, safety and/or upper extremity function for ADL' s. Plan of Care: ADL Retraining, Functional Mobility, UE Funct Exercise/Act, UE Neuromus Re-Ed/Coord, OTHER (energy conservation education) Treatment Duration: Dec 09, 2017 Frequency: At least 5 of 7 days/Wk (IRF) Estimated Hrs Per Day: 1.5 hours per day Agreement: Yes Rehab Potential: Good Time/GCodes Start Time: 08:15 Stop Time: 09:45 Total Time Billed (hr/min): 90 Billed Treatment Time 1 visit- ADL 5 (70 min) Ex (20 min) GLADIS JACK Nov 23, 2017 10:12
--- NOTE | 2017-11-23 11:30 | Physical Therapy Daily Note ---
PT Daily Note-Current Subjective Pt is sitting in recliner with feet up upon arrival. Pt agrees to PT. Pain Numeric Pain Scale: 6 Location: Right Location Body Site: Ankle Pain Description: Ache, Tightness Mental Status Patient Orientation: Person, Place, Time, Situation Attachments: Other-See Comments (Boot for RLE) Transfers Functional [place] Measure 0=Not Assessed/NA 4=Minimal Assistance 1=Total Assistance 5=Supervision or Setup 2=Maximal Assistance 6=Modified [place] 3=Moderate Assistance 7=Complete IndependenceIRFPAI Quality Coding Scale 6 Independent with activity with or without an assistive device 5 Patient requires set up or clean up by helper. Patient completes activity by themselves 4 Supervision or touching assist (CGA). [place] provide cues , steadying assist 3 The helper provides less than half the effort to complete the activity 2 The helper provides more than half the effort to complete the activity 1 Dependent. The helper does all the effort to complete an activity 7 Patient refused to complete or attempt activity 9 The patient did not perform the activity before the current illness or injury 88 Not attempted due to Medical conditions or safety concerns Scootin Sit to/from Stand: 5 Weight Bearing Right Lower Extremity: Right Touch Toe Bearing Left Lower Extremity: Left Full Weight Bearing Wheelchair Training Does the Pt Use a Wheelchair?: Yes Wheelchair Distance: 3=150 ft Distance: 150' Wheelchair Level of Assist: 5 Wheel 50 ft with 2 turns (QC): 5 Exercises Seated Therapy Exercises: Ankle pumps, Long arc quads, Chair press-ups, Hip flexion, Kicking activity, Hip abd/add Seated Reps: 15 Treatments Pt focused on Seated transfers from recliner & [facility] at close SBA. Pt completes Seated Ex in recliner. Pt & ELECTROMECHANISMS DESIGN DRAFTER also discuss home set-up and possible need for future Family Training Mtg before discharge. Pt resting in recliner visiting with Sp at end of tx. Pt has all needs met. Assessment Current Status: Good Progress Pt is improving with increased confidence and strength with transfers and mobility. PT Short Term Goals Short Term Goals Wheelchair Distance: 150' PT Senior Shipping Clerk Goals Skilled Nursing Goals PT Skilled Nursing Goals Time Frame: Dec 09, 2017 Transfers (B,C,W/C) (FIM): 6 Sit to Lying (QC): 6 Lying-Sitting on Side/Bed(QC): 6 Sit to Stand (QC): 6 Rollin Roll Left to Right (QC): 6 Chair/Rsm-wv-Doffh Xfer(QC): 6 Car Transfer (QC): 6 Does the Patient Walk: No and Walking Goal IS indicated Gait (FIM): 1 Gait distance (FIM): 1=up to 49 ft Distance: 10' Walk 10 feet (QC): 5 Walk 10ft-Uneven Surface(QC): 88 Walk 50ft with 2 Turns (QC): 88 Walk 150 ft (QC): 88 Gait Level of Assist: 5 Gait Assistive Device: FWW Wheelchair (FIM): 6 Wheelchair distance (FIM): 9=218-42 ft Distance: 125' Wheelchair Level of Assist: 6 Wheel 50 feet with 2 turns (QC: 6 Stairs (FIM): 2 # of Steps: 4 1 Step (curb) (QC): 3 4 Steps (QC): 3 12 Steps (QC): 88 Stairs Level Of Assist: 3 Picking up an Object (QC): 5 PT Plan Problem List Problem List: Activity Tolerance, Functional Strength, Safety, Balance, Gait, Transfer Treatment/Plan Treatment Plan: Continue Plan of Care Treatment Plan: Bed Mobility, Concurrent Therapy, Education, Functional Activity Main, Functional Strength, Group Therapy, Gait, Safety, Therapeutic Exercise, Transfers Treatment Duration: Dec 09, 2017 Frequency: At least 5 of 7 days/Wk (IRF) Estimated Hrs Per Day: 1.5 hours per day Patient and/or Family Agrees t: Yes Safety Risks/Education Patient Education: Gait Training, Transfer Techniques, Correct Positioning, Safety Issues Teaching Recipient: Patient Teaching Methods: Discussion Response to Teaching: Verbalize Understanding Time/GCodes Time In: 1015 Time Out: 1115 Total Billed Treatment 1, WCH (20m), EX (15m) & FA x2 (25m) G Codes Necessary: MILANA Stroud ELECTROMECHANISMS DESIGN DRAFTER Nov 23, 2017 11:30
--- NOTE | 2017-11-23 15:56 | Physical Therapy Daily Note ---
PT Daily Note-Current Subjective Pt sitting in recliner upon arrival. Pt agrees to PT. Pt reports rubbing and discomfort on back of R knee where cast is located, PUPPET MAKER examined. Pain Numeric Pain Scale: 5-Moderate Pain Location: Right Location Body Site: Ankle Pain Description: Ache, Throbbing Comment: Pt reports pain when RLE is down during tx, as well as rubbing from R cast Mental Status Patient Orientation: Person, Place, Time, Situation Attachments: Other-See Comments (Cast on RLE) Transfers Functional [place] Measure 0=Not Assessed/NA 4=Minimal Assistance 1=Total Assistance 5=Supervision or Setup 2=Maximal Assistance 6=Modified [place] 3=Moderate Assistance 7=Complete IndependenceIRFPAI Quality Coding Scale 6 Independent with activity with or without an assistive device 5 Patient requires set up or clean up by helper. Patient completes activity by themselves 4 Supervision or touching assist (CGA). [place] provide cues , steadying assist 3 The helper provides less than half the effort to complete the activity 2 The helper provides more than half the effort to complete the activity 1 Dependent. The helper does all the effort to complete an activity 7 Patient refused to complete or attempt activity 9 The patient did not perform the activity before the current illness or injury 88 Not attempted due to Medical conditions or safety concerns Scootin Sit to/from Stand: 5 Sit to Stand (QC): 5 Weight Bearing Right Lower Extremity: Right Touch Toe Bearing Left Lower Extremity: Left Full Weight Bearing Exercises Seated Therapy Exercises: Ankle pumps, Long arc quads, Hip flexion, Kicking activity, Hip abd/add Seated Reps: 20 Treatments Pt completes Sit to Stand so PUPPET MAKER can examine back of R knee but found no redness or skin breakdown, Nurse notified. Pt will notify Dr Elizabeth when he comes to check on pt, meanwhile staff will monitor. Pt completes Seated Ex in chair. Pt resting with RLE prop on pillow with ice. Pt has all needs met at end of tx, including call light next to tx. Assessment Current Status: Good Progress Pt is transferring more independently. PT Short Term Goals Short Term Goals Wheelchair Distance: 150' PT Mcc Goals Mcc Goals PT Mcc Goals Time Frame: Dec 09, 2017 Transfers (B,C,W/C) (FIM): 6 Sit to Lying (QC): 6 Lying-Sitting on Side/Bed(QC): 6 Sit to Stand (QC): 6 Rollin Roll Left to Right (QC): 6 Chair/Zmz-sx-Jxgva Xfer(QC): 6 Car Transfer (QC): 6 Does the Patient Walk: No and Walking Goal IS indicated Gait (FIM): 1 Gait distance (FIM): 1=up to 49 ft Distance: 10' Walk 10 feet (QC): 5 Walk 10ft-Uneven Surface(QC): 88 Walk 50ft with 2 Turns (QC): 88 Walk 150 ft (QC): 88 Gait Level of Assist: 5 Gait Assistive Device: FWW Wheelchair (FIM): 6 Wheelchair distance (FIM): 3=653-61 ft Distance: 125' Wheelchair Level of Assist: 6 Wheel 50 feet with 2 turns (QC: 6 Stairs (FIM): 2 # of Steps: 4 1 Step (curb) (QC): 3 4 Steps (QC): 3 12 Steps (QC): 88 Stairs Level Of Assist: 3 Picking up an Object (QC): 5 PT Plan Problem List Problem List: Activity Tolerance, Functional Strength, Safety, Balance, Gait, Transfer, ROM Treatment/Plan Treatment Plan: Continue Plan of Care Treatment Plan: Bed Mobility, Concurrent Therapy, Education, Functional Activity Main, Functional Strength, Group Therapy, Gait, Safety, Therapeutic Exercise, Transfers Treatment Duration: Dec 09, 2017 Frequency: At least 5 of 7 days/Wk (IRF) Estimated Hrs Per Day: 1.5 hours per day Patient and/or Family Agrees t: Yes Safety Risks/Education Patient Education: Gait Training, Transfer Techniques, Correct Positioning, Disease Process, Safety Issues Teaching Recipient: Patient Teaching Methods: Discussion Response to Teaching: Verbalize Understanding Time/GCodes Time In: 1400 Time Out: 1430 Total Billed Treatment Time: 30 Total Billed Treatment 1, EX (20m) & FA (10m) G Codes Necessary: MILANA Stroud PUPPET MAKER Nov 23, 2017 15:56
--- NOTE | 2017-11-23 16:46 | Individualized Plan of Care ---
Individualized Plan of Care Rehab Nursing IPOC Order Admission Date Nov 21, 2017 at 11:45 Current Orders Orders Admission Order(Inpt,Obs,Sdc) (11/21/17 12:15) Resource Development Manager-Inpt Rehab Con (11/21/17 12:15) Rehab Nursing Orders-Ipoc (11/21/17 12:15) Physical Therapy Rehab Orders (11/21/17 12:15) Occupational Therapy Rehab Ord (11/21/17 12:15) Speech Therapy Rehab Orders (11/21/17 12:15) General/Regular (11/21/17 Dinner) Weight Bearing Status (11/21/17 12:15) Precautions (Aru) (11/21/17 12:15) Weekly Weight (Lbs) WEEK (11/21/17 12:15) Code/Resuscitation (11/21/17 12:15) Admission Arrival Bed Request (11/21/17 12:19) Oxycodone/Apap 5/325mg Tablet (Percocet (11/21/17 12:30) Patient Visit (11/21/17 ) Pt Eval Moderate Complexity (11/21/17 ) Functional Activities, Ea 15 (11/21/17 ) Exercise Therap, Ea 15 Min (11/21/17 ) Aspirin Enteric Coated Tablet (Ecotrin T (11/21/17 21:00) Atenolol Tablet (Tenormin Tablet) (11/21/17 21:00) Calcium Carbonate Chew Tablet (Antacid C (11/21/17 16:15) Enoxaparin Injection (Lovenox Injection) (11/22/17 07:00) Hydrochlorothiazide Cap/Tablet (Hctz Cap (11/21/17 21:00) Levothyroxine Tablet (Synthroid Tablet) (11/21/17 21:00) Pantoprazole Tablet (Protonix Tablet) (11/21/17 21:00) Potassium Chloride (Tablet) (Klor Con Ta (11/21/17 17:00) Simvastatin Tablet (Zocor Tablet) (11/21/17 21:00) Acetaminophen Tablet/Caplet (Tylenol T (11/21/17 16:15) Valsartan Tablet (Diovan Tablet) (11/21/17 21:00) Consult Physician (11/21/17 16:42) Relabel For Home Use (Relabel For Home U (11/21/17 21:00) Oxycodone/Apap 5/325mg Tablet (Percocet (11/21/17 17:30) Esomeprazole (Non-Formulary) (Nexium (No (11/21/17 21:00) Ambulate TID (11/21/17 22:26) Sequential Compression Device 08,20 (11/21/17 22:26) Dvt/Vte Risk - Notifiy Physici 08 (11/21/17 22:26) Patient Visit (11/21/17 ) Speech Sound Lang Comp (11/21/17 ) Nursing Communication (Order) (11/22/17 07:50) Cbc No Diff (11/23/17 05:00) Basic Metabolic Panel (11/23/17 05:00) Docusate Sodium Capsule (Colace Capsule) (11/22/17 09:00) Patient Visit (11/22/17 ) Exercise Therap, Ea 15 Min (11/22/17 ) Functional Activities, Ea 15 (11/22/17 ) Wheelchair Mgmt/Propulsn 15min (11/22/17 ) Polyethylene Glycol Powder Pkt (Miralax (11/22/17 21:00) Transfer - Bed/Room/Location (11/22/17 19:46) Transfer - Bed/Room/Location (11/22/17 20:43) Exercise Therap, Ea 15 Min (11/22/17 ) Patient Visit (11/23/17 ) Wheelchair Mgmt/Propulsn 15min (11/23/17 ) Exercise Therap, Ea 15 Min (11/23/17 ) Functional Activities, Ea 15 (11/23/17 ) Rehab Nursing Orders: Ongoing Assess. of Cognitive Status, Ongoing Assess. of Function Status, Disease Management & Educaiton, DVT Prophylaxis, Fall Prevention, Fluid/Electrolyte/Nutrition Mgmt, Infection Prevention, Medication Management & Education, Management of Risks & Complications, Management of Skin Intergrity, Nutrition Management, Pain Management, Patient/Family Support PT IPOC Problem List: Activity Tolerance, Functional Strength, Safety, Balance, Gait, Transfer, ROM Treatment Plan: Continue Plan of Care Bed Mobility, Concurrent Therapy, Education, Functional Activity Main, Functional Strength, Group Therapy, Gait, Safety, Therapeutic Exercise, Transfers Treatment Duration: Dec 09, 2017 Frequency: At least 5 of 7 days/Wk (IRF) Estimated Hrs Per Day: 1.5 hours per day OT IPOC Problems: Decreased Activ Tolerance, Decreased UE Strength, Dependent Transfers , Impaired Self-Care Skills OT Treatment, Training and Edu: Yes OT Problems Pt would benefit from skilled OT to increase her independence in basic self care after a fall with ankle fracture, Plan of Care: ADL Retraining, Functional Mobility, UE Funct Exercise/Act, UE Neuromus Re-Ed/Coord, OTHER (energy conservation education) Treatment Duration: Dec 09, 2017 Frequency: At least 5 of 7 days/Wk (IRF) Estimated Hrs Per Day: 1.[address] IPOC Speech Therapy Treatment Plan: Discontinue ST Treatment Duration: Nov 23, 2017 Frequency: Modified [place] (IRF) (0) Estimated Hrs Per Day: Other (0) Resource Development Manager/Case Mgmt Resource Development Manager/Case Managemen: Discharge Planning, Patient/Family Counseling Dietitian/Mop Handle Assembler Dietitian/Mop Handle Assembler to monitor nutritional status and make changes and/or recommendations as needed and work with speech pathology on dietary upgrades as the occur. Physician IPOC Medical Issues being managed closely and that require the 24 hour availability of a physician: HTN IGC code 08.9 Etiologic DX Grade 1 open ankle fracture Medical Issues: Bowel/Bladder Function, DVT Prophylaxis, Falls Precautions, Infection Protection, Pain Management, Weight Bearing Precautions, Wound Care, Other (List) (as per above) Brief Synthesis of Preadmission Screen, Post-Admission Evaluation, and Therapy Evaluations: 77 yo female who fratured her ankle while attemting to repair her pool Had been Independent prior to ankle fracture and now with s/p repair with limited WB status.Lives with spouse Medical Prognosis: Good Anticipated Length of Stay: 12-01-17 Modified Independent for adls and mobility skills at the w/c level Anticipated d/c Destination: Home with spouse JACI RITTER MD Nov 23, 2017 16:46
[2017-11-23] MEDS: KCL 10 MEQ TAB (MICRO K) PO SCH (17:17)
[2017-11-23 17:32] VITALS: BP 113/55
[2017-11-23] MEDS: POLYETHYLENE GLYCOL 17 GM (MIRALAX) PACK PO SCH (19:36)
[2017-11-23] MEDS: LEVOTHYROXINE 75 MCG (LEVOTHROID) TABLET PO SCH (19:43)
[2017-11-23] MEDS: HYDROCHLOROTHIAZIDE 12.5 MG (HCTZ) CAP PO SCH (19:43)
[2017-11-23] MEDS: SIMvastatin 10 MG (ZOCOR) TAB PO SCH (19:43)
[2017-11-23] MEDS: ATENOLOL 25 MG (TENORMIN) TAB PO SCH (19:43)
[2017-11-23] MEDS: ASPIRIN E.C. 81 MG (ECOTRIN) TAB PO SCH (19:43)
[2017-11-23] MEDS: VALSARTAN 80 MG (DIOVAN) TAB PO SCH (19:43)
[2017-11-23] MEDS: ESOMEPRAZOLE 20 MG PO SCH (19:44)
[2017-11-23 19:52] VITALS: BP 121/76
[2017-11-24] MEDS: oxyCODONE/APAP 5/325MG (PERCOCET 5) TABLET PO PRN ×2 (03:54→21:24)
[2017-11-24 05:16] VITALS: BP 125/80
[2017-11-24] MEDS: ENOXAPARIN 40 MG/0.4 ML (LOVENOX) SYR SC SCH (06:39)
--- NOTE | 2017-11-24 07:05 | Progress Note-Standard ---
Standard Progress Note Progress Notes/Assess & Plan Date Seen by Provider: Nov 24, 2017 Time Seen by Provider: 07:04 Progress/Assessment & Plan feeling better RLE--in splint NVI s/p I and D and ORIF r ankle TTWB RLE Final Diagnosis no complaints Vital Signs Date Time Temp Pulse Resp B/P (MAP) Pulse Ox O2 Delivery O2 Flow Rate FiO2 11/24/17 05:16 97.6 66 18 125/80 (95) 97 Room Air 11/23/17 20:15 Room Air 11/23/17 19:52 76 121/76 (91) 11/23/17 17:32 97.4 70 18 113/55 (74) 98 Room Air 11/23/17 09:00 Room Air I & O 11/24/17 07:00 Intake Total 1640 ml Balance 1640 ml RLE--splint in place. NVI s/p ORIF and I and D r ankle continue PT/OT CARLOS MALLOY MD Nov 24, 2017 07:05
--- NOTE | 2017-11-24 08:22 | PM & R (SOAP) Progress Note ---
Subjective This was a face to face visit with the patient. Date Seen by Provider: Nov 24, 2017 Time Seen by Provider: 08:10 Subjective/Events-last exam Patient was seen in herroom this AM Patient SBA for transfers Doing morning adls with OT Objective Physician Exam Last Set of Vital Signs Vital Signs Date Time Temp Pulse Resp B/P (MAP) Pulse Ox O2 Delivery O2 Flow Rate FiO2 11/24/17 05:16 97.6 66 18 125/80 (95) 97 Room Air Capillary Refill : Less Than 3 Seconds I&O Intake and Output 11/24/17 00:00 Intake Total 1840 ml Balance 1840 ml Intake Oral 1840 ml # Voids 7 # Bowel Movements 1 General: Alert, Oriented X3, Cooperative, No Acute Distress HEENT: Atraumatic, PERRLA, EOMI, Mucous Memb Moist/[place] Neck: Supple, No JVD Lungs: Clear to Auscultation Heart: Regular Rate Abdomen: Normal Bowel Sounds, Soft Extremities: Other (Dressing rt ankle) Neuro: Other (Functional strength Sensation intact Cognition intact) Results Lab Data Laboratory Tests 11/23/17 05:33: White Blood Count 9.4, Red Blood Count 3.39L, Hemoglobin 10.2#L, Hematocrit 31L , Mean Corpuscular Volume 92, Mean Corpuscular Hemoglobin 30, Mean Corpuscular Hemoglobin Concent 33, Red Cell Distribution Width 13.6, Platelet Count 274, Mean Platelet Volume 10.1, Sodium Level 140, Potassium Level 3.9, Chloride Level 104, Carbon Dioxide Level 25, Anion Gap 11, Blood Urea Nitrogen 11, Creatinine 0.73, Estimat Glomerular Filtration Rate > 60, BUN/Creatinine Ratio 15, Glucose Level 93, Calcium Level 9.2 Assessment/Plan Assessment and Plan Rt ankle fracture s/p repair HTN controlled DVT prophylaxis on Lovenox subcut Plan Continue PT/.OT Next Team Conference 11-29-17 Co-Morbidities that are continuing to impact the rehab process: (include details ) JACI RITTER MD Nov 24, 2017 08:22
[2017-11-24] MEDS: DOCUSATE SODIUM 100 MG (COLACE) CAP PO SCH ×2 (08:27→21:22)
--- NOTE | 2017-11-24 08:36 | Progress Note (SOAP) ---
Subjective Time Seen by Provider: 08:35 Subjective/Events-last exam Patient feels tired today. Right foot feels heavy Objective Exam Vital Signs Date Time Temp Pulse Resp B/P (MAP) Pulse Ox O2 Delivery O2 Flow Rate FiO2 11/24/17 05:16 97.6 66 18 125/80 (95) 97 Room Air 11/23/17 20:15 Room Air 11/23/17 19:52 76 121/76 (91) 11/23/17 17:32 97.4 70 18 113/55 (74) 98 Room Air 11/23/17 09:00 Room Air I & O 11/24/17 07:00 Intake Total 1640 ml Balance 1640 ml Capillary Refill : Less Than 3 Seconds General Appearance: No Apparent Distress HEENT: Normal ENT Inspection Neck: Full Range of Motion, Normal Inspection Respiratory: Lungs Clear, No Accessory Muscle Use, No Respiratory Distress Cardiovascular: No Murmur Gastrointestinal: non tender, soft Assessment/Plan Assessment/Plan Assess & Plan/Chief Complaint Ankle fracture right. Hypertension. Irregular heartbeat. Coronary artery disease. Hyperlipidemia.. . 11/23/17. Ankle fracture) Hypertension under control. Irregular heartbeat as usual. Coronary artery disease. Hyperlipidemia. . 11/24/17. Right ankle fracture. Hypertension. Coronary artery disease Clinical Quality Measures DVT/VTE Risk/Contraindication: Risk Factor Score Per Nursin RFS Level Per Nursing on Admit: 4+=Very High AIME RODRIGUEZ DO Nov 24, 2017 08:36
--- NOTE | 2017-11-24 09:01 | Occupational Ther Daily Note ---
OT Current Status-Daily Note Subjective Pt alert, lying in bed. No c/o pain. Pt agrees to therapy. Mental Status/Objective Patient Orientation: Person, Place, Time, Situation Functional [place] Measure 0=Not Assessed/NA 4=Minimal Assistance 1=Total Assistance 5=Supervision or Setup 2=Maximal Assistance 6=Modified [place] 3=Moderate Assistance 7=Complete [place] ADL-Treatment Functional [place] Measure 0=Not Assessed/NA 4=Minimal Assistance 1=Total Assistance 5=Supervision or Setup 2=Maximal Assistance 6=Modified [place] 3=Moderate Assistance 7=Complete IndependenceIRFPAI Quality Coding Scale 6 Independent with activity with or without an assistive device 5 Patient requires set up or clean up by helper. Patient completes activity by themselves 4 Supervision or touching assist (CGA). [place] provide cues , steadying assist 3 The helper provides less than half the effort to complete the activity 2 The helper provides more than half the effort to complete the activity 1 Dependent. The helper does all the effort to complete an activity 7 Patient refused to complete or attempt activity 9 The patient did not perform the activity before the current illness or injury 88 Not attempted due to Medical conditions or safety concerns Grooming (FIM): 6 (Pt able to complete by self at wheelchair level. ) Oral Hygiene (QC): 6 Bathing (FIM): 5 (SBA, Pt able to complete using hand held shower, shower bench , grabbars, and long handled sponge.) Bathing Location: L Arm, R Arm, L Upper Leg, R Upper Leg, L Lower Leg ( including foot), Chest, Abdomen, Buttocks, Perineal Area Shower/Bathe Self (QC): 4 Upper Body (FIM): 5 (SBA, pt able to complete by self at w/c level.) Upper Body Dressing (QC): 5 Lower Body Dressing (FIM): 5 (SBA, pt able to complete using FWW and w/c for stability. Pt able to don/doff clothing using AE. ) Lower Body Dressing (QC): 4 On/Off Footwear (QC): 5 Transfers (B, C, W/C) (FIM): 5 (SBA, pt able to complete by self using FWW and arm rails for stability. ) Shower Transfer(FIM): 5 (SBA, pt able to complete using grabbars, shower bench , and w/c for stability, needing verbal cue for proper hand placement and transfer technique. ) After therapy, pt sitting in w/c with call light/ phone within reach. All needs met in room. OT Short Term Goals Short Term Goals Time Frame: Nov 28, 2017 Toileting(FIM): 4 Toilet/Commode Transfer(FIM): 4 Additional Short Term Goals: 1-Demonstrate ADL Tasks, 2-Verbalize Understanding , 3-ImproveStrength/Main 1=Demonstrate adherence to instructed precautions during ADL tasks. 2=Patient will verbalize/demonstrate understanding of assistive devices/ modifications for ADL. 3=Patient will improve strength/tolerance for activity to enable patient to perform ADL's. OT Snf Goals Snf Goals Time Frame: Dec 09, 2017 Eating (FIM): 7 Eating (QC): 6 Groomin Oral Hygiene (QC): 6 Bathing(FIM): 6 Shower/Bathe Self (QC): 6 Upper Body Dressing(FIM): 6 Upper Body Dressing (QC): 6 Lower Body Dressing(FIM): 6 Lower Body Dressing (QC): 6 On/Off Footwear (QC): 6 Toileting(FIM): 6 Toileting Hygiene (QC): 6 Toilet/Commode Transfer(FIM): 6 Toilet/Commode Transfer (QC): 6 Shower Transfer(FIM): 6 Additional Goals: 1-Demonstrate ADL Tasks, 2-Verbalize Understanding, 3- ImproveStrength/Main 1=Demonstrate adherence to instructed precautions during ADL tasks. 2=Patient will verbalize/demonstrate understanding of assistive devices/ modifications for ADL. 3=Patient will improve strength/tolerance for activity to enable patient to perform ADL's. OT Education/Plan Problem List/Assessment Pt would benefit from skilled OT to increase her independence in basic self care after a fall with ankle fracture, Discharge Recommendations Plan/Recommendations: Continue POC Treatment Plan/Plan of Care Patient would benefit from OT for education, treatment and training to promote independence in ADL's, mobility, safety and/or upper extremity function for ADL' s. Plan of Care: ADL Retraining, Functional Mobility, UE Funct Exercise/Act, UE Neuromus Re-Ed/Coord, OTHER (energy conservation education) Treatment Duration: Dec 09, 2017 Frequency: At least 5 of 7 days/Wk (IRF) Estimated Hrs Per Day: 1.5 hours per day Agreement: Yes Rehab Potential: Good Time/GCodes Start Time: 07:00 Stop Time: 08:00 Total Time Billed (hr/min): 60 Billed Treatment Time 1 visit- ADL 4 (60 min) GLADIS JACK Nov 24, 2017 09:01
--- NOTE | 2017-11-24 12:00 | Physical Therapy Daily Note ---
PT Daily Note-Current Subjective Pt. states she will likely be NWB/TTWB for 6 weeks, states she does not think she can get a ramp up to her house and cant go up steps and cant get a w/c through her house. Pain Numeric Pain Scale: 0-No Pain Mental Status Patient Orientation: Person, Place, Time, Situation Attachments: Other-See Comments (cast RLE) Transfers Functional [place] Measure 0=Not Assessed/NA 4=Minimal Assistance 1=Total Assistance 5=Supervision or Setup 2=Maximal Assistance 6=Modified [place] 3=Moderate Assistance 7=Complete IndependenceIRFPAI Quality Coding Scale 6 Independent with activity with or without an assistive device 5 Patient requires set up or clean up by helper. Patient completes activity by themselves 4 Supervision or touching assist (CGA). [place] provide cues , steadying assist 3 The helper provides less than half the effort to complete the activity 2 The helper provides more than half the effort to complete the activity 1 Dependent. The helper does all the effort to complete an activity 7 Patient refused to complete or attempt activity 9 The patient did not perform the activity before the current illness or injury 88 Not attempted due to Medical conditions or safety concerns Transfers (B, C, W/C) (FIM): 4 Scootin Rollin Supine to/from Sit: 6 Sit to/from Stand: 4 Bed to/from Chair: 4 Weight Bearing Right Lower Extremity: Right Touch Toe Bearing Left Lower Extremity: Left Full Weight Bearing Gait Training Does the Patient Walk?: Yes Gait (FIM): 1 Distance (FIM): 1=up to 49 ft (5 ft ) Gait Level of Assist: 2 Gait Persons Needed: 1 Gait Assistive Device: FWW very short bouts as pt. is anxious and unsure, needs instruction etc Wheelchair Training Does the Pt Use a Wheelchair?: Yes Wheelchair (FIM): 3 Wheelchair Distance: 4=060-98 ft (75x3) Wheelchair Level of Assist: 3 Type of Wheelchair: Manual braking, leg rest adjusted etc, approaching chair and bed with w/c etc Exercises Supine Ex: Ankle pumps, Quad Set, Rolling, Glut sets, Heel Slides, Short Arc Quads, Scooting, Straight leg raise, Hip abd/add Supine Reps: 15 Treatments toileting with min to mod assist to move and to manage clothes and clean Assessment Current Status: Fair Progress needs many extra cues to manuever and think process through PT Short Term Goals Short Term Goals Wheelchair Distance: 150' PT Longterm Goals Cattle Alley Worker Goals PT Longterm Goals Time Frame: Dec 09, 2017 Transfers (B,C,W/C) (FIM): 6 Sit to Lying (QC): 6 Lying-Sitting on Side/Bed(QC): 6 Sit to Stand (QC): 6 Rollin Roll Left to Right (QC): 6 Chair/Bpl-hc-Unhhc Xfer(QC): 6 Car Transfer (QC): 6 Does the Patient Walk: No and Walking Goal IS indicated Gait (FIM): 1 Gait distance (FIM): 1=up to 49 ft Distance: 10' Walk 10 feet (QC): 5 Walk 10ft-Uneven Surface(QC): 88 Walk 50ft with 2 Turns (QC): 88 Walk 150 ft (QC): 88 Gait Level of Assist: 5 Gait Assistive Device: FWW Wheelchair (FIM): 6 Wheelchair distance (FIM): 7=827-46 ft Distance: 125' Wheelchair Level of Assist: 6 Wheel 50 feet with 2 turns (QC: 6 Stairs (FIM): 2 # of Steps: 4 1 Step (curb) (QC): 3 4 Steps (QC): 3 12 Steps (QC): 88 Stairs Level Of Assist: 3 Picking up an Object (QC): 5 PT Plan Treatment/Plan Treatment Plan: Continue Plan of Care Treatment Plan: Bed Mobility, Concurrent Therapy, Education, Functional Activity Main, Functional Strength, Group Therapy, Gait, Safety, Therapeutic Exercise, Transfers Treatment Duration: Dec 09, 2017 Frequency: At least 5 of 7 days/Wk (IRF) Estimated Hrs Per Day: 1.5 hours per day Patient and/or Family Agrees t: Yes Safety Risks/Education Patient Education: Gait Training, Transfer Techniques, Correct Positioning, W/ C Management, Disease Process, Safety Issues Teaching Recipient: Patient Teaching Methods: Demonstration, Discussion Response to Teaching: Verbalize Understanding, Return Demonstration, Reinforcement Needed Time/GCodes Time In: 1000 Time Out: 1100 Total Billed Treatment Time: 60 Total Billed Treatment 1,EX20m,FA25m,w/c15m G Codes Necessary: KARELY Mccray LEAD FORMER Nov 24, 2017 12:00
--- NOTE | 2017-11-24 14:48 | Therapy Group Daily Note ---
Therapy Daily Group Note Patient Education Topic Other List Below (ARU expectations/descriptions,wellness:nutrition, exercise) Exercises LE Seated Exercise, UE Exercise Other/Notes Pt maneuvered w/c to therapy gym for OT/PT group. Group consisted of introductions (name, place living, least favorite food), socialization, ARU description/expectations, wellness:nutrition and exercise education and seated UE/LE exercises. Pt introduced self appropriately and actively listened to peers. Pt verbalized understanding of educational topics and gave examples. Pt initiated and contributed to conversation among peers on topic of educational topics. Pt able to complete UE/LE seated exercises except with R LE due to medical issue. Pt maneuvered w/c back to room, family present in room. Call light/phone in reach. All needs met in room. Start Time: 13:00 Stop Time: 14:15 Total Billed Treatment Time: 75 Total Billed Treatment 1-GRP GLADIS JACK Nov 24, 2017 14:48
[2017-11-24] MEDS: KCL 10 MEQ TAB (MICRO K) PO SCH (16:53)
--- NOTE | 2017-11-24 17:35 | Progress Note-Standard ---
Standard Progress Note Progress Notes/Assess & Plan Date Seen by Provider: Nov 24, 2017 Time Seen by Provider: 07:05 Progress/Assessment & Plan feeling better RLE--in splint NVI s/p I and D and ORIF r ankle TTWB RLE Final Diagnosis no complaints Vital Signs Date Time Temp Pulse Resp B/P (MAP) Pulse Ox O2 Delivery O2 Flow Rate FiO2 11/24/17 09:00 Room Air 11/24/17 05:16 97.6 66 18 125/80 (95) 97 Room Air 11/23/17 20:15 Room Air 11/23/17 19:52 76 121/76 (91) I & O 11/24/17 07:00 Intake Total 1640 ml Balance [address] NVI continue PT/OT CARLOS MALLOY MD Nov 24, 2017 17:35
[2017-11-24 18:38] VITALS: BP 130/74
[2017-11-24] MEDS: POLYETHYLENE GLYCOL 17 GM (MIRALAX) PACK PO SCH (20:44)
[2017-11-24] MEDS: ASPIRIN E.C. 81 MG (ECOTRIN) TAB PO SCH (21:22)
[2017-11-24] MEDS: VALSARTAN 80 MG (DIOVAN) TAB PO SCH (21:22)
[2017-11-24] MEDS: HYDROCHLOROTHIAZIDE 12.5 MG (HCTZ) CAP PO SCH (21:22)
[2017-11-24] MEDS: LEVOTHYROXINE 75 MCG (LEVOTHROID) TABLET PO SCH (21:22)
[2017-11-24] MEDS: SIMvastatin 10 MG (ZOCOR) TAB PO SCH (21:22)
[2017-11-24] MEDS: ATENOLOL 25 MG (TENORMIN) TAB PO SCH (21:22)
[2017-11-24] MEDS: ESOMEPRAZOLE 20 MG PO SCH (21:24)
[2017-11-25 05:38] VITALS: BP 126/81
[2017-11-25] MEDS: ENOXAPARIN 40 MG/0.4 ML (LOVENOX) SYR SC SCH (06:02)
--- NOTE | 2017-11-25 07:21 | PM & R (SOAP) Progress Note ---
Subjective This was a face to face visit with the patient. Date Seen by Provider: Nov 25, 2017 Time Seen by Provider: 07:00 Subjective/Events-last exam Patient was seen in her room this AM Patient Min assist for transfers Objective Physician Exam Last Set of Vital Signs Vital Signs Date Time Temp Pulse Resp B/P (MAP) Pulse Ox O2 Delivery O2 Flow Rate FiO2 11/25/17 05:38 98.4 60 18 126/81 (96) 97 Room Air Capillary Refill : Less Than 3 Seconds I&O Intake and Output 11/25/17 00:00 Intake Total 1500 ml Balance 1500 ml Intake Oral 1500 ml # Voids 6 # Bowel Movements 1 General: Alert, Oriented X3, Cooperative, No Acute Distress HEENT: Atraumatic, PERRLA, EOMI, Mucous Memb Moist/[place] Neck: Supple, No JVD Lungs: Clear to Auscultation Heart: Regular Rate Abdomen: Normal Bowel Sounds, Soft Extremities: Other (Dressing rt ankle) Neuro: Other (Functional strength Sensation intact Cognition intact) Results Lab Data Laboratory Tests 11/23/17 05:33: White Blood Count 9.4, Red Blood Count 3.39L, Hemoglobin 10.2#L, Hematocrit 31L , Mean Corpuscular Volume 92, Mean Corpuscular Hemoglobin 30, Mean Corpuscular Hemoglobin Concent 33, Red Cell Distribution Width 13.6, Platelet Count 274, Mean Platelet Volume 10.1, Sodium Level 140, Potassium Level 3.9, Chloride Level 104, Carbon Dioxide Level 25, Anion Gap 11, Blood Urea Nitrogen 11, Creatinine 0.73, Estimat Glomerular Filtration Rate > 60, BUN/Creatinine Ratio 15, Glucose Level 93, Calcium Level 9.2 Assessment/Plan Assessment and Plan RT ankle fracture s/p repair HTN controlled DVT prophylaxis on Lovenox subcut Plan Continue PT/OT Next Team Conference 11-29-17 Co-Morbidities that are continuing to impact the rehab process: (include details ) JACI RITTER MD Nov 25, 2017 07:21
[2017-11-25] MEDS: DOCUSATE SODIUM 100 MG (COLACE) CAP PO SCH ×2 (08:34→21:17)
--- NOTE | 2017-11-25 11:19 | Physical Therapy Daily Note ---
PT Daily Note-Current Subjective Pt agreeable. Pt requested commode upon my arrival and post therapy session. Pt did not complain of pain. Pt verbalized understanding of weight bearing status. Mental Status Patient Orientation: Person, Place, Situation Transfers Functional [place] Measure 0=Not Assessed/NA 4=Minimal Assistance 1=Total Assistance 5=Supervision or Setup 2=Maximal Assistance 6=Modified [place] 3=Moderate Assistance 7=Complete IndependenceIRFPAI Quality Coding Scale 6 Independent with activity with or without an assistive device 5 Patient requires set up or clean up by helper. Patient completes activity by themselves 4 Supervision or touching assist (CGA). [place] provide cues , steadying assist 3 The helper provides less than half the effort to complete the activity 2 The helper provides more than half the effort to complete the activity 1 Dependent. The helper does all the effort to complete an activity 7 Patient refused to complete or attempt activity 9 The patient did not perform the activity before the current illness or injury 88 Not attempted due to Medical conditions or safety concerns Weight Bearing Right Lower Extremity: Right Touch Toe Bearing Left Lower Extremity: Left Full Weight Bearing Treatments Supine ther ex: Hip/knee flexion/ext, SLR, SAQ, hip abd x 15 each. Transfers in/out bed mod (I). SPT bed<->commode x 2 bouts CGA. Pt required max A to doff /agusto pants and pericare. Assessment Current Status: Good Progress Pt apprehensive with standing balance, unable to let go of walker to pull pants up/down. No LOB noted. Pt on commode post therapy session with call light and nurse notified. Pt unable to hop at this time due to apprehension and weakness. Pt would benefit from continued PT to improve functional mobility. PT Short Term Goals Short Term Goals Wheelchair Distance: 150' PT Fci Goals Fci Goals PT Fci Goals Time Frame: Dec 09, 2017 Transfers (B,C,W/C) (FIM): 6 Sit to Lying (QC): 6 Lying-Sitting on Side/Bed(QC): 6 Sit to Stand (QC): 6 Rollin Roll Left to Right (QC): 6 Chair/Aog-fg-Dmbqn Xfer(QC): 6 Car Transfer (QC): 6 Does the Patient Walk: No and Walking Goal IS indicated Gait (FIM): 1 Gait distance (FIM): 1=up to 49 ft Distance: 10' Walk 10 feet (QC): 5 Walk 10ft-Uneven Surface(QC): 88 Walk 50ft with 2 Turns (QC): 88 Walk 150 ft (QC): 88 Gait Level of Assist: 5 Gait Assistive Device: FWW Wheelchair (FIM): 6 Wheelchair distance (FIM): 6=395-30 ft Distance: 125' Wheelchair Level of Assist: 6 Wheel 50 feet with 2 turns (QC: 6 Stairs (FIM): 2 # of Steps: 4 1 Step (curb) (QC): 3 4 Steps (QC): 3 12 Steps (QC): 88 Stairs Level Of Assist: 3 Picking up an Object (QC): 5 PT Plan Treatment/Plan Treatment Plan: Continue Plan of Care Treatment Plan: Bed Mobility, Concurrent Therapy, Education, Functional Activity Main, Functional Strength, Group Therapy, Gait, Safety, Therapeutic Exercise, Transfers Treatment Duration: Dec 09, 2017 Frequency: At least 5 of 7 days/Wk (IRF) Estimated Hrs Per Day: 1.5 hours per day Patient and/or Family Agrees t: Yes Time/GCodes Time In: 930 Time Out: 1000 Total Billed Treatment Time: 30 Total Billed Treatment 1, ther ex 20 min, FA 10 min HEMA CASTANEDA CPTA Nov 25, 2017 11:19
[2017-11-25] MEDS: oxyCODONE/APAP 5/325MG (PERCOCET 5) TABLET PO PRN ×2 (14:58→21:08)
[2017-11-25 16:05] VITALS: BP 114/71
[2017-11-25] MEDS: KCL 10 MEQ TAB (MICRO K) PO SCH (16:49)
[2017-11-25] MEDS: POLYETHYLENE GLYCOL 17 GM (MIRALAX) PACK PO SCH (20:40)
[2017-11-25] MEDS: ATENOLOL 25 MG (TENORMIN) TAB PO SCH (21:06)
[2017-11-25] MEDS: SIMvastatin 10 MG (ZOCOR) TAB PO SCH (21:07)
[2017-11-25] MEDS: ASPIRIN E.C. 81 MG (ECOTRIN) TAB PO SCH (21:07)
[2017-11-25] MEDS: HYDROCHLOROTHIAZIDE 12.5 MG (HCTZ) CAP PO SCH (21:07)
[2017-11-25] MEDS: VALSARTAN 80 MG (DIOVAN) TAB PO SCH (21:07)
[2017-11-25] MEDS: ESOMEPRAZOLE 20 MG PO SCH (21:08)
[2017-11-25] MEDS: LEVOTHYROXINE 75 MCG (LEVOTHROID) TABLET PO SCH (21:08)
[2017-11-26] MEDS: oxyCODONE/APAP 5/325MG (PERCOCET 5) TABLET PO PRN ×2 (04:59→22:56)
[2017-11-26] MEDS: ENOXAPARIN 40 MG/0.4 ML (LOVENOX) SYR SC SCH (04:59)
[2017-11-26 05:06] VITALS: BP 135/69
[2017-11-26] MEDS: DOCUSATE SODIUM 100 MG (COLACE) CAP PO SCH ×2 (07:57→21:26)
--- NOTE | 2017-11-26 11:30 | Progress Note-Standard ---
Standard Progress Note Progress Notes/Assess & Plan Date Seen by Provider: Nov 26, 2017 Time Seen by Provider: 11:29 Progress/Assessment & Plan feeling better RLE--in splint NVI s/p I and D and ORIF r ankle TTWB RLE Final Diagnosis Patient reports less pain Vital Signs Date Time Temp Pulse Resp B/P (MAP) Pulse Ox O2 Delivery O2 Flow Rate FiO2 11/26/17 09:37 Room Air 11/26/17 05:06 97.3 58 18 135/69 (91) 95 Room Air 11/25/17 20:55 Room Air 11/25/17 16:05 98.9 63 16 114/71 (85) 97 Room Air I & O 11/26/17 07:00 Intake Total 1250 ml Balance 1250 ml RLE--incisions/laceration clean and dry without erythema or warmth s/p ORIF R ankle TTWB CARLOS MALLOY MD Nov 26, 2017 11:30
[2017-11-26] MEDS: KCL 10 MEQ TAB (MICRO K) PO SCH (16:12)
[2017-11-26 16:24] VITALS: BP 107/68
[2017-11-26] MEDS: HYDROCHLOROTHIAZIDE 12.5 MG (HCTZ) CAP PO SCH (21:25)
[2017-11-26] MEDS: VALSARTAN 80 MG (DIOVAN) TAB PO SCH (21:25)
[2017-11-26] MEDS: ATENOLOL 25 MG (TENORMIN) TAB PO SCH (21:25)
[2017-11-26] MEDS: LEVOTHYROXINE 75 MCG (LEVOTHROID) TABLET PO SCH (21:26)
[2017-11-26] MEDS: ESOMEPRAZOLE 20 MG PO SCH (21:26)
[2017-11-26] MEDS: ASPIRIN E.C. 81 MG (ECOTRIN) TAB PO SCH (21:26)
[2017-11-26] MEDS: SIMvastatin 10 MG (ZOCOR) TAB PO SCH (21:26)
[2017-11-26] MEDS: POLYETHYLENE GLYCOL 17 GM (MIRALAX) PACK PO SCH (21:29)
[2017-11-26 21:30] VITALS: BP 112/66
[2017-11-27 05:53] VITALS: BP 109/72
[2017-11-27] MEDS: ENOXAPARIN 40 MG/0.4 ML (LOVENOX) SYR SC SCH (06:14)
--- NOTE | 2017-11-27 08:07 | Occupational Ther Daily Note ---
OT Current Status-Daily Note Subjective Pt in bed, agrees to treatment. Pt reports 3/10 pain in left LE. Mental Status/Objective Functional [place] Measure 0=Not Assessed/NA 4=Minimal Assistance 1=Total Assistance 5=Supervision or Setup 2=Maximal Assistance 6=Modified [place] 3=Moderate Assistance 7=Complete [place] ADL-Treatment Pt supine to sit with supervision. Transfer to w/c with close supervision using FWW, TTWB left LE. W/c mobility to restroom with SBA. Washed face without assistance while seated at sink. Transfer w/c<-> BSC over toilet with CGA and cues for safety using grab bars. Pt completed toileting hygiene, but required CGA for balance during clothing management. Transfer w/c<-> shower bench with CGA using grab bars, cues for hand placement and safety. Pt doffed clothing with SBA. Seated bathing completed using hand held shower and long handled sponge. Left LE covered to prevent getting wet. Pt able to wash all areas with SBA while seated. Don pullover shirt with modified independence. Don pants using dressing stick to start over left foot. Stood with close supervision for balance during pant hike. Don right sock with set up. Pt completed grooming tasks with modified independence while seated in w/c at sink. Transfer to recliner with supervision using FWW. Pt sitting in chair with needs met after session. Functional [place] Measure 0=Not Assessed/NA 4=Minimal Assistance 1=Total Assistance 5=Supervision or Setup 2=Maximal Assistance 6=Modified [place] 3=Moderate Assistance 7=Complete IndependenceIRFPAI Quality Coding Scale 6 Independent with activity with or without an assistive device 5 Patient requires set up or clean up by helper. Patient completes activity by themselves 4 Supervision or touching assist (CGA). [place] provide cues , steadying assist 3 The helper provides less than half the effort to complete the activity 2 The helper provides more than half the effort to complete the activity 1 Dependent. The helper does all the effort to complete an activity 7 Patient refused to complete or attempt activity 9 The patient did not perform the activity before the current illness or injury 88 Not attempted due to Medical conditions or safety concerns Grooming (FIM): 6 Oral Hygiene (QC): 6 Bathing (FIM): 5 Shower/Bathe Self (QC): 4 Upper Body (FIM): 6 Upper Body Dressing (QC): 6 Lower Body Dressing (FIM): 5 Lower Body Dressing (QC): 4 On/Off Footwear (QC): 5 Toileting (FIM): 4 (CGA) Toileting Hygiene (QC): 4 (CGA) Toilet/Commode Transfer (FIM): 4 (CGA) Toilet Transfer (QC): 4 (CGA) Shower Transfer(FIM): 4 (CGA) OT Short Term Goals Short Term Goals Time Frame: Nov 28, 2017 Toileting(FIM): 4 Toilet/Commode Transfer(FIM): 4 Additional Short Term Goals: 1-Demonstrate ADL Tasks, 2-Verbalize Understanding , 3-ImproveStrength/Main 1=Demonstrate adherence to instructed precautions during ADL tasks. 2=Patient will verbalize/demonstrate understanding of assistive devices/ modifications for ADL. 3=Patient will improve strength/tolerance for activity to enable patient to perform ADL's. OT Retirement Goals Simulation Educator Goals Time Frame: Dec 09, 2017 Eating (FIM): 7 Eating (QC): 6 Groomin Oral Hygiene (QC): 6 Bathing(FIM): 6 Shower/Bathe Self (QC): 6 Upper Body Dressing(FIM): 6 Upper Body Dressing (QC): 6 Lower Body Dressing(FIM): 6 Lower Body Dressing (QC): 6 On/Off Footwear (QC): 6 Toileting(FIM): 6 Toileting Hygiene (QC): 6 Toilet/Commode Transfer(FIM): 6 Toilet/Commode Transfer (QC): 6 Shower Transfer(FIM): 6 Additional Goals: 1-Demonstrate ADL Tasks, 2-Verbalize Understanding, 3- ImproveStrength/Main 1=Demonstrate adherence to instructed precautions during ADL tasks. 2=Patient will verbalize/demonstrate understanding of assistive devices/ modifications for ADL. 3=Patient will improve strength/tolerance for activity to enable patient to perform ADL's. OT Education/Plan Problem List/Assessment Pt would benefit from skilled OT to increase her independence in basic self care after a fall with ankle fracture, Discharge Recommendations Plan/Recommendations: Continue POC Treatment Plan/Plan of Care Patient would benefit from OT for education, treatment and training to promote independence in ADL's, mobility, safety and/or upper extremity function for ADL' s. Plan of Care: ADL Retraining, Functional Mobility, UE Funct Exercise/Act, UE Neuromus Re-Ed/Coord, OTHER (energy conservation education) Treatment Duration: Dec 09, 2017 Frequency: At least 5 of 7 days/Wk (IRF) Estimated Hrs Per Day: 1.5 hours per day Agreement: Yes Rehab Potential: Good Time/GCodes Start Time: 07:15 Stop Time: 08:15 Total Time Billed (hr/min): 60 Billed Treatment Time 1 visit, ADLx4(60minutes) MELVI BERKOWITZ OT Nov 27, 2017 08:07
[2017-11-27] MEDS: DOCUSATE SODIUM 100 MG (COLACE) CAP PO SCH ×2 (08:31→21:12)
--- NOTE | 2017-11-27 10:02 | Physical Therapy Daily Note ---
PT Daily Note-Current Subjective Pt. agrees to Rx. States she suspects she will need to go some where for healing process at some point as she and her know they arent ready to make home modifications and cant bump her up the stairs in to her home. States she feels she would do much better with a supportive shoe on her left foot. Pt. telephoned family to have them bring her some Pain Numeric Pain Scale: 0-No Pain Mental Status Patient Orientation: Normal For Age Attachments: Other-See Comments (boot cast R foot, RLE) Transfers Functional [place] Measure 0=Not Assessed/NA 4=Minimal Assistance 1=Total Assistance 5=Supervision or Setup 2=Maximal Assistance 6=Modified [place] 3=Moderate Assistance 7=Complete IndependenceIRFPAI Quality Coding Scale 6 Independent with activity with or without an assistive device 5 Patient requires set up or clean up by helper. Patient completes activity by themselves 4 Supervision or touching assist (CGA). [place] provide cues , steadying assist 3 The helper provides less than half the effort to complete the activity 2 The helper provides more than half the effort to complete the activity 1 Dependent. The helper does all the effort to complete an activity 7 Patient refused to complete or attempt activity 9 The patient did not perform the activity before the current illness or injury 88 Not attempted due to Medical conditions or safety concerns Transfers (B, C, W/C) (FIM): 4 Scootin Rollin Supine to/from Sit: 6 Sit to/from Stand: 4 Bed to/from Chair: 4 SPTs with NWB RLE using FWW CGA Weight Bearing Right Lower Extremity: Right Touch Toe Bearing Left Lower Extremity: Left Full Weight Bearing Gait Training Does the Patient Walk?: Yes Gait (FIM): 1 Distance (FIM): 1=up to 49 ft (4-5 ft x 3 for TRFs only) Gait Level of Assist: 4 Gait Persons Needed: 1 Gait Assistive Device: FWW Pt. feels she is gaining strength and balance and hopes with some time as well as a supportive shoe maybe she can walk further Wheelchair Training Does the Pt Use a Wheelchair?: Yes Wheelchair (FIM): 5 Wheelchair Distance: 3=150 ft Wheelchair Level of Assist: 5 Type of Wheelchair: Manual fig 8s with some coaching as well as instruction in leg rest etc Exercises Seated Therapy Exercises: Sit to stand, Long arc quads, Hip flexion, Hip abd/ add Seated Reps: 15 Standing: Hip Abduction, 3 way Ex=Flex, Abd, Ext Standing Reps: 12 NuStep Minutes: 10 NuStep Workload: 1 Treatments toileted with CGA for SPT as well as clothes up and down Assessment Current Status: Good Progress gaining confidence and feeling more positive, slow steady progress PT Short Term Goals Short Term Goals Wheelchair Distance: 150' PT Retirement Goals Vat Washer Goals PT Retirement Goals Time Frame: Dec 09, 2017 Transfers (B,C,W/C) (FIM): 6 Sit to Lying (QC): 6 Lying-Sitting on Side/Bed(QC): 6 Sit to Stand (QC): 6 Rollin Roll Left to Right (QC): 6 Chair/Zyc-kw-Nkqfq Xfer(QC): 6 Car Transfer (QC): 6 Does the Patient Walk: No and Walking Goal IS indicated Gait (FIM): 1 Gait distance (FIM): 1=up to 49 ft Distance: 10' Walk 10 feet (QC): 5 Walk 10ft-Uneven Surface(QC): 88 Walk 50ft with 2 Turns (QC): 88 Walk 150 ft (QC): 88 Gait Level of Assist: 5 Gait Assistive Device: FWW Wheelchair (FIM): 6 Wheelchair distance (FIM): 5=103-04 ft Distance: 125' Wheelchair Level of Assist: 6 Wheel 50 feet with 2 turns (QC: 6 Stairs (FIM): 2 # of Steps: 4 1 Step (curb) (QC): 3 4 Steps (QC): 3 12 Steps (QC): 88 Stairs Level Of Assist: 3 Picking up an Object (QC): 5 PT Plan Treatment/Plan Treatment Plan: Continue Plan of Care Treatment Plan: Bed Mobility, Concurrent Therapy, Education, Functional Activity Main, Functional Strength, Group Therapy, Gait, Safety, Therapeutic Exercise, Transfers Treatment Duration: Dec 09, 2017 Frequency: At least 5 of 7 days/Wk (IRF) Estimated Hrs Per Day: 1.5 hours per day Patient and/or Family Agrees t: Yes Safety Risks/Education Patient Education: Gait Training, Transfer Techniques, Correct Positioning, W/ C Management, Disease Process, Safety Issues Teaching Recipient: Patient Teaching Methods: Demonstration, Discussion Response to Teaching: Verbalize Understanding, Return Demonstration, Reinforcement Needed Time/GCodes Time In: 900 Time Out: 1000 Total Billed Treatment Time: 60 Total Billed Treatment 1,FA15m,EX25m,WC20m G Codes Necessary: KARELY Mccray THREADER OPERATOR Nov 27, 2017 10:02
--- NOTE | 2017-11-27 14:55 | Therapy Group Daily Note ---
Therapy Daily Group Note Patient Education Topic Home Safety, Fall Prevention, Exercises Exercises LE Seated Exercise, UE Exercise Other/Notes Pt propelled self in [facility] to PT/OT Group this afternoon. Group consisted of Introduction (Name, Where are you from & A Favorite Holiday Memory), Socialization, Home Safety and Fall Prevention Techniques and Equipment as well as Seated Exercise. Pt vocally participated by giving examples of ways patients could fall as well as gave personal example of what patient will change at home to prevent falls and make home safer. Pt also completed Seated Exercises before propelling self back to room to rest at end of Group. Start Time: 13:00 Stop Time: 14:10 Total Billed Treatment Time: 70 Total Billed Treatment 1, GRP (70m) MILANA BARAHONA RECREATION TEACHER Nov 27, 2017 14:55
[2017-11-27 17:24] VITALS: BP 138/84
[2017-11-27] MEDS: KCL 10 MEQ TAB (MICRO K) PO SCH (17:29)
[2017-11-27] MEDS: SIMvastatin 10 MG (ZOCOR) TAB PO SCH (21:12)
[2017-11-27] MEDS: ASPIRIN E.C. 81 MG (ECOTRIN) TAB PO SCH (21:12)
[2017-11-27] MEDS: POLYETHYLENE GLYCOL 17 GM (MIRALAX) PACK PO SCH (21:13)
[2017-11-27] MEDS: ATENOLOL 25 MG (TENORMIN) TAB PO SCH (21:13)
[2017-11-27] MEDS: VALSARTAN 80 MG (DIOVAN) TAB PO SCH (21:13)
[2017-11-27] MEDS: HYDROCHLOROTHIAZIDE 12.5 MG (HCTZ) CAP PO SCH (21:13)
[2017-11-27] MEDS: LEVOTHYROXINE 75 MCG (LEVOTHROID) TABLET PO SCH (21:13)
[2017-11-27] MEDS: ESOMEPRAZOLE 20 MG PO SCH (21:14)
[2017-11-27] MEDS: oxyCODONE/APAP 5/325MG (PERCOCET 5) TABLET PO PRN (21:21)
--- NOTE | 2017-11-27 22:03 | PM & R (SOAP) Progress Note ---
Subjective This was a face to face visit with the patient. Date Seen by Provider: Nov 27, 2017 Time Seen by Provider: 21:40 Subjective/Events-last exam Patient was seen in her room Patient min assist for transfers Objective Physician Exam Last Set of Vital Signs Vital Signs Date Time Temp Pulse Resp B/P (MAP) Pulse Ox O2 Delivery O2 Flow Rate FiO2 11/27/17 17:24 96.1 65 18 138/84 (102) 99 Room Air Capillary Refill : Less Than 3 Seconds I&O Intake and Output 11/27/17 00:00 Intake Total 1250 ml Balance 1250 ml Intake Oral 1250 ml # Voids 6 General: Alert, Oriented X3, Cooperative, No Acute Distress HEENT: Atraumatic, PERRLA, EOMI, Mucous Memb Moist/[place] Neck: Supple, No JVD Lungs: Clear to Auscultation Heart: Regular Rate Abdomen: Normal Bowel Sounds, Soft Extremities: Other (Dressing rt ankle) Neuro: Other (Functional strength Sensation intact Cognition intact) Assessment/Plan Assessment and Plan RT ANKle fracture s/p repair DR Elizabeth HTN controlled Postop anemia DVT prophylaxis on Lovenox subcut Plan Continue PT/OT TEam Conference 11-29-17 Co-Morbidities that are continuing to impact the rehab process: (include details ) JACI RITTER MD Nov 27, 2017 22:03
[2017-11-28 05:06] VITALS: BP 106/69
[2017-11-28] MEDS: ENOXAPARIN 40 MG/0.4 ML (LOVENOX) SYR SC SCH (06:37)
--- NOTE | 2017-11-28 07:03 | PM & R (SOAP) Progress Note ---
Subjective This was a face to face visit with the patient. Date Seen by Provider: Nov 28, 2017 Time Seen by Provider: 06:45 Subjective/Events-last exam Patient was seen in her room this AM Patient min assist for transfers.Eating and sleeping OK Objective Physician Exam Last Set of Vital Signs Vital Signs Date Time Temp Pulse Resp B/P (MAP) Pulse Ox O2 Delivery O2 Flow Rate FiO2 11/28/17 05:06 97.4 54 18 106/69 (81) 97 Room Air Capillary Refill : Less Than 3 Seconds I&O Intake and Output 11/28/17 00:00 Intake Total 1140 ml Balance 1140 ml Intake Oral 1140 ml # Voids 6 # Bowel Movements 2 General: Alert, Oriented X3, Cooperative, No Acute Distress HEENT: Atraumatic, PERRLA, EOMI, Mucous Memb Moist/[place] Neck: Supple, No JVD Lungs: Clear to Auscultation Heart: Regular Rate Abdomen: Normal Bowel Sounds, Soft Extremities: Other (Dressing rt ankle) Neuro: Other (Functional strength Sensation intact Cognition intact) Assessment/Plan Assessment and Plan RT ankle fracture s/p repair DR Elizabeth HTN controlled Postop anemia DVT Prophylaxis on Lovenox subcut Plan Continue PT/OT Team Conference tomorrow 11-29-17 Co-Morbidities that are continuing to impact the rehab process: (include details ) JACI RITTER MD Nov 28, 2017 07:03
[2017-11-28] MEDS: DOCUSATE SODIUM 100 MG (COLACE) CAP PO SCH ×2 (07:51→21:00)
--- NOTE | 2017-11-28 08:47 | Progress Note (SOAP) ---
Subjective Time Seen by Provider: 08:45 Subjective/Events-last exam Patient keeps on improving. Patient diet. Patient voices no complaints Objective Exam Vital Signs Date Time Temp Pulse Resp B/P (MAP) Pulse Ox O2 Delivery O2 Flow Rate FiO2 11/28/17 08:42 Room Air 11/28/17 05:06 97.4 54 18 106/69 (81) 97 Room Air 11/27/17 21:00 Room Air 11/27/17 17:24 96.1 65 18 138/84 (102) 99 Room Air 11/27/17 09:00 Room Air I & O 11/28/17 07:00 Intake Total 840 ml Balance 840 ml Capillary Refill : Less Than 3 Seconds General Appearance: No Apparent Distress, WD/WN HEENT: Normal ENT Inspection Neck: Full Range of Motion, Normal Inspection Respiratory: No Accessory Muscle Use, No Respiratory Distress Cardiovascular: Other (Heart regular today) Gastrointestinal: non tender, soft Assessment/Plan Assessment/Plan Assess & Plan/Chief Complaint Ankle fracture right. Hypertension. Irregular heartbeat. Coronary artery disease. Hyperlipidemia.. . 11/23/17. Ankle fracture) Hypertension under control. Irregular heartbeat as usual. Coronary artery disease. Hyperlipidemia. . 11/24/17. Right ankle fracture. Hypertension. Coronary artery disease. . 9/foursquare shaking. Right ankle fracture. Hypertension. Coronary artery disease. Heart in sinus rhythm today Clinical Quality Measures DVT/VTE Risk/Contraindication: Risk Factor Score Per Nursin RFS Level Per Nursing on Admit: 4+=Very High AIME RODRIGUEZ DO Nov 28, 2017 08:47
--- NOTE | 2017-11-28 09:45 | Occupational Ther Daily Note ---
OT Current Status-Daily Note Subjective Pt alert, laying in bed. Pt agrees to therapy. No c/o pain at this time. Mental Status/Objective Patient Orientation: Person, Place, Time, Situation Functional [place] Measure 0=Not Assessed/NA 4=Minimal Assistance 1=Total Assistance 5=Supervision or Setup 2=Maximal Assistance 6=Modified [place] 3=Moderate Assistance 7=Complete [place] ADL-Treatment Functional [place] Measure 0=Not Assessed/NA 4=Minimal Assistance 1=Total Assistance 5=Supervision or Setup 2=Maximal Assistance 6=Modified [place] 3=Moderate Assistance 7=Complete IndependenceIRFPAI Quality Coding Scale 6 Independent with activity with or without an assistive device 5 Patient requires set up or clean up by helper. Patient completes activity by themselves 4 Supervision or touching assist (CGA). Ari[place] provide cues , steadying assist 3 The helper provides less than half the effort to complete the activity 2 The helper provides more than half the effort to complete the activity 1 Dependent. The helper does all the effort to complete an activity 7 Patient refused to complete or attempt activity 9 The patient did not perform the activity before the current illness or injury 88 Not attempted due to Medical conditions or safety concerns Grooming (FIM): 6 (Pt able to complete by self at w/c level in front of sink.) Oral Hygiene (QC): 6 Bathing (FIM): 5 (Supervision while standing. Pt able to complete by self using hand held shower, shower bench, long handled sponge and grabbars for stability. ) Bathing Location: L Arm, R Arm, L Upper Leg, R Upper Leg, L Lower Leg ( including foot), Chest, Abdomen, Buttocks, Perineal Area Shower/Bathe Self (QC): 4 Upper Body (FIM): 5 (Set up. Pt able to complete at w/c level.) Upper Body Dressing (QC): 5 Lower Body Dressing (FIM): 4 (Pt able to complete by self using AE. CGA, using FWW for stability while pt stands to hike pants over hips. ) Lower Body Dressing (QC): 4 On/Off Footwear (QC): 6 (Pt doff sock by self while lying supine in bed. Pt able to don slip on shoe by self. ) Toileting (FIM): 5 (SBA, pt able to complete using BSC and grabbars for stability.) Toileting Hygiene (QC): 4 Transfers (B, C, W/C) (FIM): 5 (Close supervision, pt able to go from supine to sitting EOB by self. SBA, SPT to w/c using arm rails and FWW for stabilty. ) Toilet/Commode Transfer (FIM): 5 (SBA, pt able to complete using grabbars, BSC , and w/c for stability while standing to manipulate clothes over hips. ) Toilet Transfer (QC): 4 Shower Transfer(FIM): 5 (SBA, pt able to complete using grabbars and shower bench for stability. ) Other Treatment Pt maneuvered self to therapy gym in w/c. Pt increased UE strengthening needed for transfers and daily functional tasks by completing arm bike 15 min/ 15 kumar resistance and 3 # wt dowel lcark 4 UE exercises 3 sets/10 reps. Pt maneuvered self back to room in w/c. After therapy, pt in w/c with call light/ phone within reach. All needs met in room. OT Short Term Goals Short Term Goals Time Frame: Nov 28, 2017 Toileting(FIM): 4 Toilet/Commode Transfer(FIM): 4 Additional Short Term Goals: 1-Demonstrate ADL Tasks, 2-Verbalize Understanding , 3-ImproveStrength/Main 1=Demonstrate adherence to instructed precautions during ADL tasks. 2=Patient will verbalize/demonstrate understanding of assistive devices/ modifications for ADL. 3=Patient will improve strength/tolerance for activity to enable patient to perform ADL's. OT Mcc Goals Mcc Goals Time Frame: Dec 09, 2017 Eating (FIM): 7 Eating (QC): 6 Groomin Oral Hygiene (QC): 6 Bathing(FIM): 6 Shower/Bathe Self (QC): 6 Upper Body Dressing(FIM): 6 Upper Body Dressing (QC): 6 Lower Body Dressing(FIM): 6 Lower Body Dressing (QC): 6 On/Off Footwear (QC): 6 Toileting(FIM): 6 Toileting Hygiene (QC): 6 Toilet/Commode Transfer(FIM): 6 Toilet/Commode Transfer (QC): 6 Shower Transfer(FIM): 6 Additional Goals: 1-Demonstrate ADL Tasks, 2-Verbalize Understanding, 3- ImproveStrength/Main 1=Demonstrate adherence to instructed precautions during ADL tasks. 2=Patient will verbalize/demonstrate understanding of assistive devices/ modifications for ADL. 3=Patient will improve strength/tolerance for activity to enable patient to perform ADL's. OT Education/Plan Problem List/Assessment Pt would benefit from skilled OT to increase her independence in basic self care after a fall with ankle fracture, Discharge Recommendations Plan/Recommendations: Continue POC Treatment Plan/Plan of Care Patient would benefit from OT for education, treatment and training to promote independence in ADL's, mobility, safety and/or upper extremity function for ADL' s. Plan of Care: ADL Retraining, Functional Mobility, UE Funct Exercise/Act, UE Neuromus Re-Ed/Coord, OTHER (energy conservation education) Treatment Duration: Dec 09, 2017 Frequency: At least 5 of 7 days/Wk (IRF) Estimated Hrs Per Day: 1.5 hours per day Agreement: Yes Rehab Potential: Good Time/GCodes Start Time: 08:00 Stop Time: 09:30 Total Time Billed (hr/min): 90 Billed Treatment Time 1 visit- ADL 4 (60 min) EX 2 (30 min) GLADIS JACK Nov 28, 2017 09:45
--- NOTE | 2017-11-28 12:17 | Physical Therapy Daily Note ---
PT Daily Note-Current Subjective Pt sitting at table in [facility] upon arrival. Pt agrees to PT. Pt is thinking ahead for possible discharge & looking at [facility]. Pain Numeric Pain Scale: 4 Location: Right Location Body Site: Ankle Pain Description: Ache Mental Status Patient Orientation: Person, Place, Time, Situation Attachments: Other-See Comments (Cast for RLE) Transfers Functional [place] Measure 0=Not Assessed/NA 4=Minimal Assistance 1=Total Assistance 5=Supervision or Setup 2=Maximal Assistance 6=Modified [place] 3=Moderate Assistance 7=Complete IndependenceIRFPAI Quality Coding Scale 6 Independent with activity with or without an assistive device 5 Patient requires set up or clean up by helper. Patient completes activity by themselves 4 Supervision or touching assist (CGA). [place] provide cues , steadying assist 3 The helper provides less than half the effort to complete the activity 2 The helper provides more than half the effort to complete the activity 1 Dependent. The helper does all the effort to complete an activity 7 Patient refused to complete or attempt activity 9 The patient did not perform the activity before the current illness or injury 88 Not attempted due to Medical conditions or safety concerns Scootin Sit to/from Stand: 4 Sit to Stand (QC): 4 Weight Bearing Right Lower Extremity: Right Touch Toe Bearing Left Lower Extremity: Left Full Weight Bearing Wheelchair Training Does the Pt Use a Wheelchair?: Yes Wheelchair Distance: 3=150 ft Distance: 150' Wheelchair Level of Assist: 5 Wheel 50 ft with 2 turns (QC): 5 Wheel 150 ft (QC): 5 Type of Wheelchair: Manual Exercises Seated Therapy Exercises: Ankle pumps, Long arc quads, Hip flexion, Kicking activity Seated Reps: 20 NuStep Minutes: 10 NuStep Workload: 4 Treatments Pt transfers from [facility] to [facility] using SPT. Pt able to complete pericare although BROACHING MACHINE REPAIRER has to help pt stand to complete. Pt propels self to Therapy Gym at [facility]. Pt uses NuStep for 10m at 4 then completes Seated Ex. Pt returns to room to order lunch. Pt rests in [facility] in room with all needs met. Assessment Current Status: Good Progress Pt's transfers are improving with safety and independence. PT Short Term Goals Short Term Goals Wheelchair Distance: 150' PT Jail Goals Kettle Skimmer Goals PT Kettle Skimmer Goals Time Frame: Dec 09, 2017 Transfers (B,C,W/C) (FIM): 6 Sit to Lying (QC): 6 Lying-Sitting on Side/Bed(QC): 6 Sit to Stand (QC): 6 Rollin Roll Left to Right (QC): 6 Chair/Qwb-el-Xdzom Xfer(QC): 6 Car Transfer (QC): 6 Does the Patient Walk: No and Walking Goal IS indicated Gait (FIM): 1 Gait distance (FIM): 1=up to 49 ft Distance: 10' Walk 10 feet (QC): 5 Walk 10ft-Uneven Surface(QC): 88 Walk 50ft with 2 Turns (QC): 88 Walk 150 ft (QC): 88 Gait Level of Assist: 5 Gait Assistive Device: FWW Wheelchair (FIM): 6 Wheelchair distance (FIM): 4=703-11 ft Distance: 125' Wheelchair Level of Assist: 6 Wheel 50 feet with 2 turns (QC: 6 Stairs (FIM): 2 # of Steps: 4 1 Step (curb) (QC): 3 4 Steps (QC): 3 12 Steps (QC): 88 Stairs Level Of Assist: 3 Picking up an Object (QC): 5 PT Plan Problem List Problem List: Activity Tolerance, Functional Strength, Safety, Balance, Gait, Transfer Treatment/Plan Treatment Plan: Continue Plan of Care Treatment Plan: Bed Mobility, Concurrent Therapy, Education, Functional Activity Main, Functional Strength, Group Therapy, Gait, Safety, Therapeutic Exercise, Transfers Treatment Duration: Dec 09, 2017 Frequency: At least 5 of 7 days/Wk (IRF) Estimated Hrs Per Day: 1.5 hours per day Patient and/or Family Agrees t: Yes Safety Risks/Education Patient Education: Transfer Techniques, Correct Positioning, W/C Management, Safety Issues Teaching Recipient: Patient Teaching Methods: Discussion Response to Teaching: Verbalize Understanding Time/GCodes Time In: 1100 Time Out: 1200 Total Billed Treatment Time: 60 Total Billed Treatment 1, WCH (15m), FA x2 (25m) & EX (20m) G Codes Necessary: MILANA Stroud PTA Nov 28, 2017 12:17
--- NOTE | 2017-11-28 15:30 | Physical Therapy Daily Note ---
PT Daily Note-Current Subjective Pt sitting in [facility] visiting with family at table in Therapy Commons upon arrival. Pt agrees to PT. Pain Numeric Pain Scale: 3 Location: Right Location Body Site: Ankle Pain Description: Ache Mental Status Patient Orientation: Person, Place, Time, Situation Attachments: Other-See Comments (RLE Cast) Transfers Functional [place] Measure 0=Not Assessed/NA 4=Minimal Assistance 1=Total Assistance 5=Supervision or Setup 2=Maximal Assistance 6=Modified [place] 3=Moderate Assistance 7=Complete IndependenceIRFPAI Quality Coding Scale 6 Independent with activity with or without an assistive device 5 Patient requires set up or clean up by helper. Patient completes activity by themselves 4 Supervision or touching assist (CGA). [place] provide cues , steadying assist 3 The helper provides less than half the effort to complete the activity 2 The helper provides more than half the effort to complete the activity 1 Dependent. The helper does all the effort to complete an activity 7 Patient refused to complete or attempt activity 9 The patient did not perform the activity before the current illness or injury 88 Not attempted due to Medical conditions or safety concerns Scootin Sit to/from Stand: 4 Sit to Stand (QC): 4 Weight Bearing Right Lower Extremity: Right Touch Toe Bearing Left Lower Extremity: Left Full Weight Bearing Wheelchair Training Does the Pt Use a Wheelchair?: Yes Wheelchair Distance: 3=150 ft Distance: 150' Wheelchair Level of Assist: 5 Wheel 50 ft with 2 turns (QC): 5 Wheel 150 ft (QC): 5 Type of Wheelchair: Manual Exercises Seated Therapy Exercises: Ankle pumps, Long arc quads, Hip flexion, Kicking activity, Hip abd/add Seated Reps: 20 Treatments Pt propels [facility] in hallway to Therapy Gym at [facility]. Pt completes Seated Ex in [facility]. Pt transfers from [facility] to [facility]. Pt given call light and all needs were met at end of tx. Assessment Current Status: Good Progress Pt is improving with strength and transfers. PT Short Term Goals Short Term Goals Wheelchair Distance: 150' PT Metal Bonding Press Operator Goals Metal Bonding Press Operator Goals PT Chcf Goals Time Frame: Dec 09, 2017 Transfers (B,C,W/C) (FIM): 6 Sit to Lying (QC): 6 Lying-Sitting on Side/Bed(QC): 6 Sit to Stand (QC): 6 Rollin Roll Left to Right (QC): 6 Chair/Vzl-co-Btbhw Xfer(QC): 6 Car Transfer (QC): 6 Does the Patient Walk: No and Walking Goal IS indicated Gait (FIM): 1 Gait distance (FIM): 1=up to 49 ft Distance: 10' Walk 10 feet (QC): 5 Walk 10ft-Uneven Surface(QC): 88 Walk 50ft with 2 Turns (QC): 88 Walk 150 ft (QC): 88 Gait Level of Assist: 5 Gait Assistive Device: FWW Wheelchair (FIM): 6 Wheelchair distance (FIM): 7=753-04 ft Distance: 125' Wheelchair Level of Assist: 6 Wheel 50 feet with 2 turns (QC: 6 Stairs (FIM): 2 # of Steps: 4 1 Step (curb) (QC): 3 4 Steps (QC): 3 12 Steps (QC): 88 Stairs Level Of Assist: 3 Picking up an Object (QC): 5 PT Plan Problem List Problem List: Activity Tolerance, Functional Strength, Safety, Balance, Gait, Transfer Treatment/Plan Treatment Plan: Continue Plan of Care Treatment Plan: Bed Mobility, Concurrent Therapy, Education, Functional Activity Main, Functional Strength, Group Therapy, Gait, Safety, Therapeutic Exercise, Transfers Treatment Duration: Dec 09, 2017 Frequency: At least 5 of 7 days/Wk (IRF) Estimated Hrs Per Day: 1.5 hours per day Patient and/or Family Agrees t: Yes Safety Risks/Education Patient Education: Transfer Techniques, Correct Positioning, W/C Management, Safety Issues Teaching Recipient: Patient Teaching Methods: Discussion Response to Teaching: Verbalize Understanding Time/GCodes Time In: 1400 Time Out: 1430 Total Billed Treatment Time: 30 Total Billed Treatment 1, WCH (15m) & EX (15m) G Codes Necessary: No MILANA BARAHONA PTA Nov 28, 2017 15:30
[2017-11-28] MEDS: KCL 10 MEQ TAB (MICRO K) PO SCH (16:52)
[2017-11-28 16:58] VITALS: BP 123/56
[2017-11-28 21:00] VITALS: BP 126/82
[2017-11-28] MEDS: POLYETHYLENE GLYCOL 17 GM (MIRALAX) PACK PO SCH (21:00)
[2017-11-28] MEDS: HYDROCHLOROTHIAZIDE 12.5 MG (HCTZ) CAP PO SCH (21:14)
[2017-11-28] MEDS: VALSARTAN 80 MG (DIOVAN) TAB PO SCH (21:14)
[2017-11-28] MEDS: ASPIRIN E.C. 81 MG (ECOTRIN) TAB PO SCH (21:14)
[2017-11-28] MEDS: LEVOTHYROXINE 75 MCG (LEVOTHROID) TABLET PO SCH (21:14)
[2017-11-28] MEDS: ATENOLOL 25 MG (TENORMIN) TAB PO SCH (21:15)
[2017-11-28] MEDS: oxyCODONE/APAP 5/325MG (PERCOCET 5) TABLET PO PRN (21:16)
[2017-11-28] MEDS: SIMvastatin 10 MG (ZOCOR) TAB PO SCH (21:17)
[2017-11-28] MEDS: ESOMEPRAZOLE 20 MG PO SCH (21:18)
[2017-11-29 06:00] VITALS: BP 112/62
[2017-11-29] MEDS: ENOXAPARIN 40 MG/0.4 ML (LOVENOX) SYR SC SCH (06:57)
--- NOTE | 2017-11-29 07:43 | PM & R (SOAP) Progress Note ---
Subjective This was a face to face visit with the patient. Date Seen by Provider: Nov 29, 2017 Time Seen by Provider: 07:15 Subjective/Events-last exam Patient was seen in her room this AM Patient Min assist for transfers Objective Physician Exam Last Set of Vital Signs Vital Signs Date Time Temp Pulse Resp B/P (MAP) Pulse Ox O2 Delivery O2 Flow Rate FiO2 11/29/17 06:00 97.6 53 18 112/62 (79) 96 Room Air Capillary Refill : Less Than 3 Seconds I&O Intake and Output 11/29/17 00:00 Intake Total 980 ml Balance 980 ml Intake Oral 980 ml # Voids 7 # Bowel Movements 3 General: Alert, Oriented X3, Cooperative, No Acute Distress HEENT: Atraumatic, PERRLA, EOMI, Mucous Memb Moist/[place] Neck: Supple, No JVD Lungs: Clear to Auscultation Heart: Regular Rate Abdomen: Normal Bowel Sounds, Soft Extremities: Other (Dressing rt ankle) Neuro: Other (Functional strength Sensation intact Cognition intact) Assessment/Plan Assessment and Plan RT ankle fracture s/p repair DR Elizabeth HTN controlled Postop anemia DVT Prophylaxis on Lovenox subcut Plan Continue PT/OT Team Conference to be held later today-See report for full functional update and POC and ELOS Co-Morbidities that are continuing to impact the rehab process: (include details ) JACI RITTER MD Nov 29, 2017 07:43
--- NOTE | 2017-11-29 08:46 | Progress Note (SOAP) ---
Subjective Time Seen by Provider: 08:45 Subjective/Events-last exam Patient washing up today. Patient active. Patient frustrated with fracture and limiting her Objective Exam Vital Signs Date Time Temp Pulse Resp B/P (MAP) Pulse Ox O2 Delivery O2 Flow Rate FiO2 11/29/17 06:00 97.6 53 18 112/62 (79) 96 Room Air 11/28/17 21:00 74 126/82 (97) 11/28/17 21:00 Room Air 11/28/17 16:58 97.8 65 18 123/56 (78) 97 Room Air I & O 11/29/17 07:00 Intake Total 1030 ml Balance 1030 ml Capillary Refill : Less Than 3 Seconds General Appearance: No Apparent Distress, WD/WN HEENT: Normal ENT Inspection Neck: Full Range of Motion, Normal Inspection Respiratory: No Accessory Muscle Use, No Respiratory Distress Cardiovascular: Regular Rate, Rhythm, No Murmur Assessment/Plan Assessment/Plan Assess & Plan/Chief Complaint Ankle fracture right. Hypertension. Irregular heartbeat. Coronary artery disease. Hyperlipidemia.. . 11/23/17. Ankle fracture) Hypertension under control. Irregular heartbeat as usual. Coronary artery disease. Hyperlipidemia. . 11/24/17. Right ankle fracture. Hypertension. Coronary artery disease. . 9/foursquare shaking. Right ankle fracture. Hypertension. Coronary artery disease. Heart in sinus rhythm today. . 11/29/17. Right ankle fracture. Hypertension. Coronary artery disease. Heart regular rate rhythm. Patient working at her problem Clinical Quality Measures DVT/VTE Risk/Contraindication: Risk Factor Score Per Nursin RFS Level Per Nursing on Admit: 4+=Very High AIME RODRIGUEZ DO Nov 29, 2017 08:45
--- NOTE | 2017-11-29 09:39 | Progress Note-Standard ---
Standard Progress Note Progress Notes/Assess & Plan Date Seen by Provider: Nov 29, 2017 Time Seen by Provider: 07:30 Progress/Assessment & Plan feeling better RLE--in splint NVI s/p I and D and ORIF r ankle TTWB RLE Final Diagnosis no complaints RLE--splint in place NVI s/p I and D and ORIF R ankle TTWB CARLOS MALLOY MD Nov 29, 2017 09:38
--- NOTE | 2017-11-29 09:42 | Occupational Ther Daily Note ---
OT Current Status-Daily Note Subjective Pt alert, lying in bed. No c/o pain. Pt agrees to therapy. Mental Status/Objective Patient Orientation: Person, Place, Time, Situation Functional [place] Measure 0=Not Assessed/NA 4=Minimal Assistance 1=Total Assistance 5=Supervision or Setup 2=Maximal Assistance 6=Modified [place] 3=Moderate Assistance 7=Complete [place] ADL-Treatment Functional [place] Measure 0=Not Assessed/NA 4=Minimal Assistance 1=Total Assistance 5=Supervision or Setup 2=Maximal Assistance 6=Modified [place] 3=Moderate Assistance 7=Complete IndependenceIRFPAI Quality Coding Scale 6 Independent with activity with or without an assistive device 5 Patient requires set up or clean up by helper. Patient completes activity by themselves 4 Supervision or touching assist (CGA). [place] provide cues , steadying assist 3 The helper provides less than half the effort to complete the activity 2 The helper provides more than half the effort to complete the activity 1 Dependent. The helper does all the effort to complete an activity 7 Patient refused to complete or attempt activity 9 The patient did not perform the activity before the current illness or injury 88 Not attempted due to Medical conditions or safety concerns Grooming (FIM): 6 (Pt able to complete at w/c level by self in front of sink.) Oral Hygiene (QC): 6 Bathing (FIM): 5 (Supervision. Pt able to complete by self using shower bench, grabbars, log handled sponge and hand held shower. ) Bathing Location: L Arm, R Arm, L Upper Leg, R Upper Leg, L Lower Leg ( including foot), Chest, Abdomen, Buttocks, Perineal Area Shower/Bathe Self (QC): 4 Upper Body (FIM): 6 ( Pt retrieved clothing by self at w/c level. Pt able to don/doff clothing by self at sitting position. ) Upper Body Dressing (QC): 6 Lower Body Dressing (FIM): 5 (Supervision. Pt able to complete by self using grabbars, AE and w/c for stability while standing to manipulate clothing. ) Lower Body Dressing (QC): 4 On/Off Footwear (QC): 6 (Pt able to don/doff sock by self using AE. ) Toileting (FIM): 5 (Supervision, pt able to complete by self using BSC and grabbars for stability while standing to hike pants over hips. ) Toileting Hygiene (QC): 4 Transfers (B, C, W/C) (FIM): 5 (Supervision. Pt able to go from lying supine to sitting EOB by self. Pt able to transfer from EOB to w/c by self using FWW for stability.) Toilet/Commode Transfer (FIM): 5 (Supervision, Pt complete by using grabbars and BSC for stability. ) Toilet Transfer (QC): 4 Other Treatment Pt maneuvered self to therapy gym at w/c level. Pt increased UE strengthening needed for transfers and ADLs completing arm bike for 15min/ 15 kumar resistance. Pt increased wrist strength needed for transfers by completing 3 exercises using 2# wt/ 3 sets/10 reps. PT maneuvered self back to room at w/c level. After therapy, pt sitting in w/c applying cosmetics with call light/ phone within reach. All needs met in room. OT Short Term Goals Short Term Goals Time Frame: Nov 28, 2017 Toileting(FIM): 4 Toilet/Commode Transfer(FIM): 4 Additional Short Term Goals: 1-Demonstrate ADL Tasks, 2-Verbalize Understanding , 3-ImproveStrength/Main 1=Demonstrate adherence to instructed precautions during ADL tasks. 2=Patient will verbalize/demonstrate understanding of assistive devices/ modifications for ADL. 3=Patient will improve strength/tolerance for activity to enable patient to perform ADL's. OT Installation Technician Goals Installation Technician Goals Time Frame: Dec 09, 2017 Eating (FIM): 7 Eating (QC): 6 Groomin Oral Hygiene (QC): 6 Bathing(FIM): 6 Shower/Bathe Self (QC): 6 Upper Body Dressing(FIM): 6 Upper Body Dressing (QC): 6 Lower Body Dressing(FIM): 6 Lower Body Dressing (QC): 6 On/Off Footwear (QC): 6 Toileting(FIM): 6 Toileting Hygiene (QC): 6 Toilet/Commode Transfer(FIM): 6 Toilet/Commode Transfer (QC): 6 Shower Transfer(FIM): 6 Additional Goals: 1-Demonstrate ADL Tasks, 2-Verbalize Understanding, 3- ImproveStrength/Main 1=Demonstrate adherence to instructed precautions during ADL tasks. 2=Patient will verbalize/demonstrate understanding of assistive devices/ modifications for ADL. 3=Patient will improve strength/tolerance for activity to enable patient to perform ADL's. OT Education/Plan Problem List/Assessment Pt would benefit from skilled OT to increase her independence in basic self care after a fall with ankle fracture, Discharge Recommendations Plan/Recommendations: Continue POC Treatment Plan/Plan of Care Patient would benefit from OT for education, treatment and training to promote independence in ADL's, mobility, safety and/or upper extremity function for ADL' s. Plan of Care: ADL Retraining, Functional Mobility, UE Funct Exercise/Act, UE Neuromus Re-Ed/Coord, OTHER (energy conservation education) Treatment Duration: Dec 09, 2017 Frequency: At least 5 of 7 days/Wk (IRF) Estimated Hrs Per Day: 1.5 hours per day Agreement: Yes Rehab Potential: Good Time/GCodes Start Time: 08:03 Stop Time: 09:34 Total Time Billed (hr/min): 91 Billed Treatment Time 1 visit- ADL 4 (60 min) EX 2 (31 min) GLADIS JACK Nov 29, 2017 09:42
[2017-11-29] MEDS: oxyCODONE/APAP 5/325MG (PERCOCET 5) TABLET PO PRN ×2 (10:37→21:33)
[2017-11-29] MEDS: DOCUSATE SODIUM 100 MG (COLACE) CAP PO SCH ×2 (10:37→21:26)
--- NOTE | 2017-11-29 12:01 | Physical Therapy Daily Note ---
PT Daily Note-Current Subjective Pts. daughter (an RN) here for Rx. Daughter hoping pt. can return home at [place]. States she will organize help to get her in house and all the equipment she may need as well Pain Numeric Pain Scale: 0-No Pain Mental Status Patient Orientation: Normal For Age Attachments: Other-See Comments (cast RLE) Transfers Functional [place] Measure 0=Not Assessed/NA 4=Minimal Assistance 1=Total Assistance 5=Supervision or Setup 2=Maximal Assistance 6=Modified [place] 3=Moderate Assistance 7=Complete IndependenceIRFPAI Quality Coding Scale 6 Independent with activity with or without an assistive device 5 Patient requires set up or clean up by helper. Patient completes activity by themselves 4 Supervision or touching assist (CGA). [place] provide cues , steadying assist 3 The helper provides less than half the effort to complete the activity 2 The helper provides more than half the effort to complete the activity 1 Dependent. The helper does all the effort to complete an activity 7 Patient refused to complete or attempt activity 9 The patient did not perform the activity before the current illness or injury 88 Not attempted due to Medical conditions or safety concerns Transfers (B, C, W/C) (FIM): 5 Scootin Rollin Supine to/from Sit: 6 Sit to/from Stand: 5 Bed to/from Chair: 5 Weight Bearing Right Lower Extremity: Right Touch Toe Bearing Left Lower Extremity: Left Full Weight Bearing Gait Training Does the Patient Walk?: Yes Gait (FIM): 1 Distance (FIM): 1=up to 49 ft (10ft x2) Gait Level of Assist: 4 Gait Persons Needed: 1 Gait Assistive Device: FWW with athletic type shoe on left giving pt. some increased height she was able to hop gently 10 ft x2 with cuing Wheelchair Training Does the Pt Use a Wheelchair?: Yes Wheelchair (FIM): 6 Wheelchair Distance: 3=150 ft (x2) Wheelchair Level of Assist: 5 Type of Wheelchair: Manual Exercises Supine Ex: Ankle pumps, Quad Set, Rolling, Glut sets, Heel Slides, Short Arc Quads, Scooting, Straight leg raise, Hip abd/add Supine Reps: 15 Seated Therapy Exercises: Ankle pumps, Sit to stand, Long arc quads, Hip flexion Seated Reps: 15 Assessment Current Status: Good Progress pt. feels more positive she will return home now at [place] PT Short Term Goals Short Term Goals Wheelchair Distance: 150' PT Fdc Goals Fdc Goals PT Industrial Roof Plumber Goals Time Frame: Dec 09, 2017 Transfers (B,C,W/C) (FIM): 6 Sit to Lying (QC): 6 Lying-Sitting on Side/Bed(QC): 6 Sit to Stand (QC): 6 Rollin Roll Left to Right (QC): 6 Chair/Zew-hr-Nmvde Xfer(QC): 6 Car Transfer (QC): 6 Does the Patient Walk: No and Walking Goal IS indicated Gait (FIM): 1 Gait distance (FIM): 1=up to 49 ft Distance: 10' Walk 10 feet (QC): 5 Walk 10ft-Uneven Surface(QC): 88 Walk 50ft with 2 Turns (QC): 88 Walk 150 ft (QC): 88 Gait Level of Assist: 5 Gait Assistive Device: FWW Wheelchair (FIM): 6 Wheelchair distance (FIM): 2=392-78 ft Distance: 125' Wheelchair Level of Assist: 6 Wheel 50 feet with 2 turns (QC: 6 Stairs (FIM): 2 # of Steps: 4 1 Step (curb) (QC): 3 4 Steps (QC): 3 12 Steps (QC): 88 Stairs Level Of Assist: 3 Picking up an Object (QC): 5 PT Plan Treatment/Plan Treatment Plan: Continue Plan of Care Treatment Plan: Bed Mobility, Concurrent Therapy, Education, Functional Activity Main, Functional Strength, Group Therapy, Gait, Safety, Therapeutic Exercise, Transfers Treatment Duration: Dec 09, 2017 Frequency: At least 5 of 7 days/Wk (IRF) Estimated Hrs Per Day: 1.5 hours per day Patient and/or Family Agrees t: Yes Safety Risks/Education Patient Education: Gait Training, Transfer Techniques, Correct Positioning, W/ C Management, Disease Process, Safety Issues Teaching Recipient: Patient Teaching Methods: Demonstration, Discussion Response to Teaching: Verbalize Understanding, Return Demonstration, Reinforcement Needed Time/GCodes Time In: 1100 Time Out: 1200 Total Billed Treatment Time: 60 Total Billed Treatment 1,w/c 15m,EX25m,GT20m G Codes Necessary: KARELY Mccray PTA Nov 29, 2017 12:01
--- NOTE | 2017-11-29 14:37 | Physical Therapy Daily Note ---
PT Daily Note-Current Subjective Pt. agrees to Rx, needs to urinate, very tired Pain Numeric Pain Scale: 0-No Pain Mental Status Patient Orientation: Normal For Age Attachments: Other-See Comments (half cast ) Transfers Functional [place] Measure 0=Not Assessed/NA 4=Minimal Assistance 1=Total Assistance 5=Supervision or Setup 2=Maximal Assistance 6=Modified [place] 3=Moderate Assistance 7=Complete IndependenceIRFPAI Quality Coding Scale 6 Independent with activity with or without an assistive device 5 Patient requires set up or clean up by helper. Patient completes activity by themselves 4 Supervision or touching assist (CGA). [place] provide cues , steadying assist 3 The helper provides less than half the effort to complete the activity 2 The helper provides more than half the effort to complete the activity 1 Dependent. The helper does all the effort to complete an activity 7 Patient refused to complete or attempt activity 9 The patient did not perform the activity before the current illness or injury 88 Not attempted due to Medical conditions or safety concerns sit to stands and toilet TRFs all CGA to SBA Weight Bearing Right Lower Extremity: Right Touch Toe Bearing Left Lower Extremity: Left Full Weight Bearing Gait Training Does the Patient Walk?: Yes Gait Assistive Device: FWW 10ft, 5 ft FWW CGA TTWB RLE Wheelchair Training up about ad augustina in w/c Exercises Seated Therapy Exercises: Ankle pumps, Sit to stand, Long arc quads, Hip flexion Seated Reps: 12 Assessment Current Status: Good Progress very fatigued after initiating gait. side steps and some backward to toilet really fatigued and even frustrated pt. PT Short Term Goals Short Term Goals Wheelchair Distance: 150' PT Intermediate Goals Office Machine Installer Goals PT Intermediate Goals Time Frame: Dec 09, 2017 Transfers (B,C,W/C) (FIM): 6 Sit to Lying (QC): 6 Lying-Sitting on Side/Bed(QC): 6 Sit to Stand (QC): 6 Rollin Roll Left to Right (QC): 6 Chair/Ciw-wa-Lqupg Xfer(QC): 6 Car Transfer (QC): 6 Does the Patient Walk: No and Walking Goal IS indicated Gait (FIM): 1 Gait distance (FIM): 1=up to 49 ft Distance: 10' Walk 10 feet (QC): 5 Walk 10ft-Uneven Surface(QC): 88 Walk 50ft with 2 Turns (QC): 88 Walk 150 ft (QC): 88 Gait Level of Assist: 5 Gait Assistive Device: FWW Wheelchair (FIM): 6 Wheelchair distance (FIM): 0=983-22 ft Distance: 125' Wheelchair Level of Assist: 6 Wheel 50 feet with 2 turns (QC: 6 Stairs (FIM): 2 # of Steps: 4 1 Step (curb) (QC): 3 4 Steps (QC): 3 12 Steps (QC): 88 Stairs Level Of Assist: 3 Picking up an Object (QC): 5 PT Plan Treatment/Plan Treatment Plan: Continue Plan of Care Treatment Plan: Bed Mobility, Concurrent Therapy, Education, Functional Activity Main, Functional Strength, Group Therapy, Gait, Safety, Therapeutic Exercise, Transfers Treatment Duration: Dec 09, 2017 Frequency: At least 5 of 7 days/Wk (IRF) Estimated Hrs Per Day: 1.5 hours per day Patient and/or Family Agrees t: Yes Safety Risks/Education Patient Education: Gait Training, Transfer Techniques, Correct Positioning, W/ C Management, Disease Process, Safety Issues Teaching Recipient: Patient Teaching Methods: Demonstration, Discussion Response to Teaching: Verbalize Understanding, Return Demonstration, Reinforcement Needed Time/GCodes Time In: 1400 Time Out: 1430 Total Billed Treatment Time: 30 Total Billed Treatment 1,GT10m,FA20m G Codes Necessary: KARELY Mccray MANAGING BROKER Nov 29, 2017 14:37
[2017-11-29] MEDS: KCL 10 MEQ TAB (MICRO K) PO SCH (17:05)
[2017-11-29 17:11] VITALS: BP 115/63
[2017-11-29] MEDS: POLYETHYLENE GLYCOL 17 GM (MIRALAX) PACK PO SCH (21:00)
[2017-11-29] MEDS: ATENOLOL 25 MG (TENORMIN) TAB PO SCH (21:00)
[2017-11-29 21:23] VITALS: BP 108/70
[2017-11-29] MEDS: HYDROCHLOROTHIAZIDE 12.5 MG (HCTZ) CAP PO SCH (21:26)
[2017-11-29] MEDS: VALSARTAN 80 MG (DIOVAN) TAB PO SCH (21:26)
[2017-11-29] MEDS: LEVOTHYROXINE 75 MCG (LEVOTHROID) TABLET PO SCH (21:27)
[2017-11-29] MEDS: SIMvastatin 10 MG (ZOCOR) TAB PO SCH (21:28)
[2017-11-29] MEDS: ASPIRIN E.C. 81 MG (ECOTRIN) TAB PO SCH (21:29)
[2017-11-29] MEDS: ESOMEPRAZOLE 20 MG PO SCH (21:32)
[2017-11-30 05:52] VITALS: BP 105/70
[2017-11-30] MEDS: ENOXAPARIN 40 MG/0.4 ML (LOVENOX) SYR SC SCH (07:05)
[2017-11-30] MEDS: DOCUSATE SODIUM 100 MG (COLACE) CAP PO SCH ×2 (07:54→21:07)
[2017-11-30] MEDS: oxyCODONE/APAP 5/325MG (PERCOCET 5) TABLET PO PRN ×2 (07:55→21:34)
--- NOTE | 2017-11-30 07:56 | Progress Note (SOAP) ---
Subjective Time Seen by Provider: 07:54 Subjective/Events-last exam Patient in bed resting comfortably. Ankle little sore today. Objective Exam Vital Signs Date Time Temp Pulse Resp B/P (MAP) Pulse Ox O2 Delivery O2 Flow Rate FiO2 11/30/17 05:52 96.6 62 18 105/70 (82) 97 Room Air 11/29/17 21:23 61 108/70 (83) 11/29/17 21:00 Room Air 11/29/17 17:11 97.6 61 20 115/63 (80) 98 Room Air 11/29/17 08:52 Room Air I & O 11/30/17 07:00 Intake Total 1550 ml Output Total 900 ml Balance 650 ml Capillary Refill : Less Than 3 Seconds General Appearance: No Apparent Distress, WD/WN HEENT: Normal ENT Inspection Neck: Full Range of Motion, Normal Inspection Respiratory: No Accessory Muscle Use, No Respiratory Distress Assessment/Plan Assessment/Plan Assess & Plan/Chief Complaint Ankle fracture right. Hypertension. Irregular heartbeat. Coronary artery disease. Hyperlipidemia.. . 11/23/17. Ankle fracture) Hypertension under control. Irregular heartbeat as usual. Coronary artery disease. Hyperlipidemia. . 11/24/17. Right ankle fracture. Hypertension. Coronary artery disease. . /foursquare shaking. Right ankle fracture. Hypertension. Coronary artery disease. Heart in sinus rhythm today. . 11/29/17. Right ankle fracture. Hypertension. Coronary artery disease. Heart regular rate rhythm. Patient working at her problem. . 11/30/17. Right ankle fracture. Hypertension. Coronary artery disease. Heart regular today. Clinical Quality Measures DVT/VTE Risk/Contraindication: Risk Factor Score Per Nursin RFS Level Per Nursing on Admit: 4+=Very High AIME RODRIGUEZ DO Nov 30, 2017 07:56
--- NOTE | 2017-11-30 08:00 | PM & R (SOAP) Progress Note ---
Subjective This was a face to face visit with the patient. Date Seen by Provider: Nov 30, 2017 Time Seen by Provider: 07:35 Subjective/Events-last exam Patient was seen in her room this AM Patient SBA to CGA for transfers Objective Physician Exam Last Set of Vital Signs Vital Signs Date Time Temp Pulse Resp B/P (MAP) Pulse Ox O2 Delivery O2 Flow Rate FiO2 11/30/17 05:52 96.6 62 18 105/70 (82) 97 Room Air Capillary Refill : Less Than 3 Seconds I&O Intake and Output 11/30/17 00:00 Intake Total 1350 ml Balance 1350 ml Intake Oral 1350 ml # Voids 6 General: Alert, Oriented X3, Cooperative, No Acute Distress HEENT: Atraumatic, PERRLA, EOMI, Mucous Memb Moist/[place] Neck: Supple, No JVD Lungs: Clear to Auscultation Heart: Regular Rate Abdomen: Normal Bowel Sounds, Soft Extremities: Other (Dressing rt ankle) Neuro: Other (Functional strength Sensation intact Cognition intact) Assessment/Plan Assessment and Plan RT ankle fracture s/p repair DR Elizabeth HTN controlled Postop anemia DVT Prophylaxis on Lovenox SUBcut Plan Continue PT/OT Team Conference held yesterday-See report for full functional update and POC and ELOS Co-Morbidities that are continuing to impact the rehab process: (include details ) JACI RITTER MD Nov 30, 2017 08:00
--- NOTE | 2017-11-30 09:42 | Occupational Ther Daily Note ---
OT Current Status-Daily Note Subjective Pt alert, lying in bed. No c/o pain. Pt agrees to therapy and states that she "needed a shower this morning". Mental Status/Objective Patient Orientation: Person, Place, Time, Situation Functional [place] Measure 0=Not Assessed/NA 4=Minimal Assistance 1=Total Assistance 5=Supervision or Setup 2=Maximal Assistance 6=Modified [place] 3=Moderate Assistance 7=Complete [place] ADL-Treatment Functional [place] Measure 0=Not Assessed/NA 4=Minimal Assistance 1=Total Assistance 5=Supervision or Setup 2=Maximal Assistance 6=Modified [place] 3=Moderate Assistance 7=Complete IndependenceIRFPAI Quality Coding Scale 6 Independent with activity with or without an assistive device 5 Patient requires set up or clean up by helper. Patient completes activity by themselves 4 Supervision or touching assist (CGA). [place] provide cues , steadying assist 3 The helper provides less than half the effort to complete the activity 2 The helper provides more than half the effort to complete the activity 1 Dependent. The helper does all the effort to complete an activity 7 Patient refused to complete or attempt activity 9 The patient did not perform the activity before the current illness or injury 88 Not attempted due to Medical conditions or safety concerns Grooming (FIM): 6 (Pt able to complete at w/c level in front of sink. ) Oral Hygiene (QC): 6 Bathing (FIM): 5 (SBA, pt able to complete by self using shower bench, hand held shower, long handled sponge and grabbars for stability. ) Bathing Location: L Arm, R Arm, L Upper Leg, R Upper Leg, L Lower Leg ( including foot), Chest, Abdomen, Buttocks, Perineal Area Shower/Bathe Self (QC): 4 Upper Body (FIM): 6 (Pt retrieved clothing at w/c level. Pt able to don/doff clothing at w/c level. ) Upper Body Dressing (QC): 6 Lower Body Dressing (FIM): 5 (Pt able to complete by self using grabbars and w/ c. SBA while standing to hike pants over hips. ) Lower Body Dressing (QC): 4 On/Off Footwear (QC): 6 (Pt able to complete by self using AE.) Toileting (FIM): 5 (SBA, pt able to complete by self using BSC and grabbars for stability. ) Toileting Hygiene (QC): 4 Transfers (B, C, W/C) (FIM): 5 (Pt able to go from supine position to EOB by self. Pt uses FWW and arm rails for stability, SBA. ) Toilet/Commode Transfer (FIM): 5 (SBA, pt completes by self using BSC and grabbars for stability. ) Toilet Transfer (QC): 4 Shower Transfer(FIM): 5 (SBA, pt uses grabbars, shower bench and w/c for stability. Pt needed verbal cue on hand placement for proper transfer technique. ) Educated pt on AE that could be beneficial in her home. After therapy, pt sitting in w/c in room looking over AE magazine with call light/phone within reach. All needs met in room. Education OT Patient Education: Use of adapted equipment Teaching Recipient: Patient Teaching Methods: Handout, Discussion Response to Teaching: Verbalize Understanding OT Short Term Goals Short Term Goals Time Frame: Nov 28, 2017 Toileting(FIM): 4 Toilet/Commode Transfer(FIM): 4 Additional Short Term Goals: 1-Demonstrate ADL Tasks, 2-Verbalize Understanding , 3-ImproveStrength/Main 1=Demonstrate adherence to instructed precautions during ADL tasks. 2=Patient will verbalize/demonstrate understanding of assistive devices/ modifications for ADL. 3=Patient will improve strength/tolerance for activity to enable patient to perform ADL's. OT Alf Goals Radiographer Goals Time Frame: Dec 09, 2017 Eating (FIM): 7 Eating (QC): 6 Groomin Oral Hygiene (QC): 6 Bathing(FIM): 6 Shower/Bathe Self (QC): 6 Upper Body Dressing(FIM): 6 Upper Body Dressing (QC): 6 Lower Body Dressing(FIM): 6 Lower Body Dressing (QC): 6 On/Off Footwear (QC): 6 Toileting(FIM): 6 Toileting Hygiene (QC): 6 Toilet/Commode Transfer(FIM): 6 Toilet/Commode Transfer (QC): 6 Shower Transfer(FIM): 6 Additional Goals: 1-Demonstrate ADL Tasks, 2-Verbalize Understanding, 3- ImproveStrength/Main 1=Demonstrate adherence to instructed precautions during ADL tasks. 2=Patient will verbalize/demonstrate understanding of assistive devices/ modifications for ADL. 3=Patient will improve strength/tolerance for activity to enable patient to perform ADL's. OT Education/Plan Problem List/Assessment Pt would benefit from skilled OT to increase her independence in basic self care after a fall with ankle fracture, Discharge Recommendations Plan/Recommendations: Continue POC Treatment Plan/Plan of Care Patient would benefit from OT for education, treatment and training to promote independence in ADL's, mobility, safety and/or upper extremity function for ADL' s. Plan of Care: ADL Retraining, Functional Mobility, UE Funct Exercise/Act, UE Neuromus Re-Ed/Coord, OTHER (energy conservation education) Treatment Duration: Dec 09, 2017 Frequency: At least 5 of 7 days/Wk (IRF) Estimated Hrs Per Day: 1.5 hours per day Agreement: Yes Rehab Potential: Good Time/GCodes Start Time: 07:58 Stop Time: 09:32 Total Time Billed (hr/min): 94 Billed Treatment Time 1 visit- ADL 5 (86 min) FA 1 (8 min) GLADIS JACK Nov 30, 2017 09:42
--- NOTE | 2017-11-30 12:08 | Physical Therapy Daily Note ---
PT Daily Note-Current Subjective Pt sitting in [facility] on phone upon arrival. Pt agrees to PT. Pain Numeric Pain Scale: 5-Moderate Pain Location: Right Location Body Site: Knee Pain Description: Ache Mental Status Patient Orientation: Person, Place, Time, Situation Attachments: Other-See Comments (Cast/brace on R knee) Transfers Functional [place] Measure 0=Not Assessed/NA 4=Minimal Assistance 1=Total Assistance 5=Supervision or Setup 2=Maximal Assistance 6=Modified [place] 3=Moderate Assistance 7=Complete IndependenceIRFPAI Quality Coding Scale 6 Independent with activity with or without an assistive device 5 Patient requires set up or clean up by helper. Patient completes activity by themselves 4 Supervision or touching assist (CGA). [place] provide cues , steadying assist 3 The helper provides less than half the effort to complete the activity 2 The helper provides more than half the effort to complete the activity 1 Dependent. The helper does all the effort to complete an activity 7 Patient refused to complete or attempt activity 9 The patient did not perform the activity before the current illness or injury 88 Not attempted due to Medical conditions or safety concerns Scootin Sit to/from Stand: 5 Sit to Stand (QC): 5 Weight Bearing Right Lower Extremity: Right Touch Toe Bearing Left Lower Extremity: Left Full Weight Bearing Gait Training Does the Patient Walk?: Yes Distance (FIM): 1=up to 49 ft Distance: 10' Walk 10 feet (QC): 4 Gait Level of Assist: 4 Gait Assistive Device: FWW Pt walks only short distance due to weakness and pain in RLE. Wheelchair Training Does the Pt Use a Wheelchair?: Yes Wheelchair Distance: 3=150 ft Distance: 200' Wheelchair Level of Assist: 5 Wheel 50 ft with 2 turns (QC): 5 Type of Wheelchair: Manual Stair Training Pt wanted to attempt stairs although wasn't sure she was strong enough. Pt tried to stand at stairs but decided she was not strong enough to hop up stairs. Exercises Seated Therapy Exercises: Ankle pumps, Long arc quads, Hip flexion, Kicking activity Treatments Pt transfers from sitting to standing at stairs. Pt doesn't attempt due to weakness and fatigue. Pt sit back in [facility] and completes Seated EX. METAL WORKER and pt visit over options for pt to get into house which is current discharge location if unable to ambulate stairs due to WB status. Pt propels [facility] in [facility] and focuses on turns and reverse by way of Figure 8 (2 sets). Pt returns to room to order lunch and rest. Pt has all needs met. Assessment Current Status: Good Progress Pt is still struggling with weakness and fatigue. PT Short Term Goals Short Term Goals Wheelchair Distance: 150' PT Onsite Health Coach Goals Custodial Goals PT Onsite Health Coach Goals Time Frame: Dec 09, 2017 Transfers (B,C,W/C) (FIM): 6 Sit to Lying (QC): 6 Lying-Sitting on Side/Bed(QC): 6 Sit to Stand (QC): 6 Rollin Roll Left to Right (QC): 6 Chair/Cpa-nd-Atbsw Xfer(QC): 6 Car Transfer (QC): 6 Does the Patient Walk: No and Walking Goal IS indicated Gait (FIM): 1 Gait distance (FIM): 1=up to 49 ft Distance: 10' Walk 10 feet (QC): 5 Walk 10ft-Uneven Surface(QC): 88 Walk 50ft with 2 Turns (QC): 88 Walk 150 ft (QC): 88 Gait Level of Assist: 5 Gait Assistive Device: FWW Wheelchair (FIM): 6 Wheelchair distance (FIM): 9=740-89 ft Distance: 125' Wheelchair Level of Assist: 6 Wheel 50 feet with 2 turns (QC: 6 Stairs (FIM): 2 # of Steps: 4 1 Step (curb) (QC): 3 4 Steps (QC): 3 12 Steps (QC): 88 Stairs Level Of Assist: 3 Picking up an Object (QC): 5 PT Plan Problem List Problem List: Activity Tolerance, Functional Strength, Safety, Balance, Gait, Transfer, Bed Mobility Treatment/Plan Treatment Plan: Continue Plan of Care Treatment Plan: Bed Mobility, Concurrent Therapy, Education, Functional Activity Main, Functional Strength, Group Therapy, Gait, Safety, Therapeutic Exercise, Transfers Treatment Duration: Dec 09, 2017 Frequency: At least 5 of 7 days/Wk (IRF) Estimated Hrs Per Day: 1.5 hours per day Patient and/or Family Agrees t: Yes Safety Risks/Education Patient Education: Gait Training, Transfer Techniques, Correct Positioning, Safety Issues Teaching Recipient: Patient Teaching Methods: Discussion Response to Teaching: Verbalize Understanding Time/GCodes Time In: 1100 Time Out: 1200 Total Billed Treatment 1, WC x2 (30m), FA (15m) & EX (15m) G Codes Necessary: MILANA Stroud PTA Nov 30, 2017 12:07
--- NOTE | 2017-11-30 15:36 | Physical Therapy Daily Note ---
PT Daily Note-Current Subjective Pt sitting at table in [facility] visiting with SP. Pt agrees to PT. Pain Numeric Pain Scale: 3 Location: Right Location Body Site: Knee Pain Description: Ache Mental Status Patient Orientation: Person, Place, Time, Situation Attachments: Other-See Comments Transfers Functional [place] Measure 0=Not Assessed/NA 4=Minimal Assistance 1=Total Assistance 5=Supervision or Setup 2=Maximal Assistance 6=Modified [place] 3=Moderate Assistance 7=Complete IndependenceIRFPAI Quality Coding Scale 6 Independent with activity with or without an assistive device 5 Patient requires set up or clean up by helper. Patient completes activity by themselves 4 Supervision or touching assist (CGA). [place] provide cues , steadying assist 3 The helper provides less than half the effort to complete the activity 2 The helper provides more than half the effort to complete the activity 1 Dependent. The helper does all the effort to complete an activity 7 Patient refused to complete or attempt activity 9 The patient did not perform the activity before the current illness or injury 88 Not attempted due to Medical conditions or safety concerns Scootin Sit to/from Stand: 5 Sit to Stand (QC): 5 Weight Bearing Right Lower Extremity: Right Touch Toe Bearing Left Lower Extremity: Left Full Weight Bearing Wheelchair Training Does the Pt Use a Wheelchair?: Yes Wheelchair Distance: 3=150 ft Distance: 150' Wheelchair Level of Assist: 5 Wheel 50 ft with 2 turns (QC): 5 Type of Wheelchair: Manual Stair Training Pt's Sp feels that he is able to assist pt up the stairs by having pt use L handrail and hold Sp around shoulders with RUE. Pt is not able to hop up stairs. Pt returns to [facility] to rest. Pt, Sp, wafer production worker and SETTER AUTOMAT[employer] SPINNING LAT[employer] visit about options and Sp still feels that he will be able to bring the [facility] up the stairs. Pt returns to room at end of tx. Treatments See Stairs Comments above Assessment Current Status: Fair Progress Pt continues to struggle with strength especially UE. PT Short Term Goals Short Term Goals Wheelchair Distance: 200' PT Long-Term Goals Long-Term Goals PT Air And Water Tester Goals Time Frame: Dec 09, 2017 Transfers (B,C,W/C) (FIM): 6 Sit to Lying (QC): 6 Lying-Sitting on Side/Bed(QC): 6 Sit to Stand (QC): 6 Rollin Roll Left to Right (QC): 6 Chair/Oup-vt-Joadj Xfer(QC): 6 Car Transfer (QC): 6 Does the Patient Walk: No and Walking Goal IS indicated Gait (FIM): 1 Gait distance (FIM): 1=up to 49 ft Distance: 10' Walk 10 feet (QC): 5 Walk 10ft-Uneven Surface(QC): 88 Walk 50ft with 2 Turns (QC): 88 Walk 150 ft (QC): 88 Gait Level of Assist: 5 Gait Assistive Device: FWW Wheelchair (FIM): 6 Wheelchair distance (FIM): 3=179-84 ft Distance: 125' Wheelchair Level of Assist: 6 Wheel 50 feet with 2 turns (QC: 6 Stairs (FIM): 2 # of Steps: 4 1 Step (curb) (QC): 3 4 Steps (QC): 3 12 Steps (QC): 88 Stairs Level Of Assist: 3 Picking up an Object (QC): 5 PT Plan Problem List Problem List: Activity Tolerance, Functional Strength, Safety, Balance, Gait, Transfer Treatment/Plan Treatment Plan: Continue Plan of Care Treatment Plan: Bed Mobility, Concurrent Therapy, Education, Functional Activity Main, Functional Strength, Group Therapy, Gait, Safety, Therapeutic Exercise, Transfers Treatment Duration: Dec 09, 2017 Frequency: At least 5 of 7 days/Wk (IRF) Estimated Hrs Per Day: 1.5 hours per day Patient and/or Family Agrees t: Yes Safety Risks/Education Patient Education: Gait Training, Transfer Techniques, Steps, Correct Positioning, Safety Issues Teaching Recipient: Patient, Significant Other Teaching Methods: Demonstration, Discussion Response to Teaching: Verbalize Understanding Time/GCodes Time In: 1330 Time Out: 1400 Total Billed Treatment 1, FA x2 (30m) G Codes Necessary: No MILANA BARAHONA [employer] Nov 30, 2017 15:36
[2017-11-30 16:16] VITALS: BP 91/60
[2017-11-30] MEDS: KCL 10 MEQ TAB (MICRO K) PO SCH (18:57)
[2017-11-30] MEDS: POLYETHYLENE GLYCOL 17 GM (MIRALAX) PACK PO SCH (20:19)
[2017-11-30] MEDS: LEVOTHYROXINE 75 MCG (LEVOTHROID) TABLET PO SCH (20:31)
[2017-11-30] MEDS: SIMvastatin 10 MG (ZOCOR) TAB PO SCH (20:31)
[2017-11-30] MEDS: ASPIRIN E.C. 81 MG (ECOTRIN) TAB PO SCH (20:32)
[2017-11-30 20:33] VITALS: BP 103/68
[2017-11-30] MEDS: ESOMEPRAZOLE 20 MG PO SCH (21:29)
[2017-11-30] MEDS: HYDROCHLOROTHIAZIDE 12.5 MG (HCTZ) CAP PO SCH (21:32)
[2017-11-30] MEDS: VALSARTAN 80 MG (DIOVAN) TAB PO SCH (21:32)
[2017-11-30] MEDS: ATENOLOL 25 MG (TENORMIN) TAB PO SCH (21:32)
[2017-11-30 22:18] VITALS: BP 93/65
[2017-12-01 05:20] VITALS: BP 139/84
[2017-12-01] MEDS: ENOXAPARIN 40 MG/0.4 ML (LOVENOX) SYR SC SCH (06:43)
[2017-12-01] MEDS: DOCUSATE SODIUM 100 MG (COLACE) CAP PO SCH ×2 (08:11→20:43)
--- NOTE | 2017-12-01 08:16 | Occupational Ther Daily Note ---
OT Current Status-Daily Note Subjective Pt alert, lying in bed finishing up breakfast. Pt agrees to therapy once she has finished eating. No c/o pain. Mental Status/Objective Patient Orientation: Person, Place, Time, Situation Functional [place] Measure 0=Not Assessed/NA 4=Minimal Assistance 1=Total Assistance 5=Supervision or Setup 2=Maximal Assistance 6=Modified [place] 3=Moderate Assistance 7=Complete [place] ADL-Treatment Functional [place] Measure 0=Not Assessed/NA 4=Minimal Assistance 1=Total Assistance 5=Supervision or Setup 2=Maximal Assistance 6=Modified [place] 3=Moderate Assistance 7=Complete IndependenceIRFPAI Quality Coding Scale 6 Independent with activity with or without an assistive device 5 Patient requires set up or clean up by helper. Patient completes activity by themselves 4 Supervision or touching assist (CGA). [place] provide cues , steadying assist 3 The helper provides less than half the effort to complete the activity 2 The helper provides more than half the effort to complete the activity 1 Dependent. The helper does all the effort to complete an activity 7 Patient refused to complete or attempt activity 9 The patient did not perform the activity before the current illness or injury 88 Not attempted due to Medical conditions or safety concerns Eating (FIM): 7 (Pt able to manipulate packaging and uses normal utensils. ) Eating (QC): 6 Grooming (FIM): 6 (Pt able to complete by self at w/c level in front of sink.) Oral Hygiene (QC): 6 Bathing (FIM): 6 (Pt able to complete by self using grabbars, shower bench, hand held shower and long handled sponge. ) Bathing Location: L Arm, R Arm, L Upper Leg, R Upper Leg, L Lower Leg ( including foot), Chest, Abdomen, Buttocks, Perineal Area Shower/Bathe Self (QC): 6 Upper Body (FIM): 6 (Pt able to retrieve clothing and don/doff by self at w/c level.) Upper Body Dressing (QC): 6 Lower Body Dressing (FIM): 5 (SBA, pt able to complete by self using grabbars and w/c for stability to hike pants over hips.) Lower Body Dressing (QC): 4 On/Off Footwear (QC): 6 (Pt able to don/doff sock by self using AE at w/c level. ) Toileting (FIM): 5 (SBA, pt able to complete by self using grabbars and BSC for stability. ) Toileting Hygiene (QC): 4 Transfers (B, C, W/C) (FIM): 5 (Pt able to go from supine to EOB by self. Pt able to transfer by self using FWW and arm rails for stability, SBA. ) Toilet/Commode Transfer (FIM): 5 (SBA, pt able to complete by self using grabbars and BSC for stability. ) Toilet Transfer (QC): 4 Shower Transfer(FIM): 5 (SBA, pt able to complete by self using grabbars, shower bench, and w/c for stability. ) After therapy, pt sitting in w/c in room. Call light/phone within reach. All needs met in the room. OT Short Term Goals Short Term Goals Time Frame: Nov 28, 2017 Toileting(FIM): 4 Toilet/Commode Transfer(FIM): 4 Additional Short Term Goals: 1-Demonstrate ADL Tasks, 2-Verbalize Understanding , 3-ImproveStrength/Main 1=Demonstrate adherence to instructed precautions during ADL tasks. 2=Patient will verbalize/demonstrate understanding of assistive devices/ modifications for ADL. 3=Patient will improve strength/tolerance for activity to enable patient to perform ADL's. OT Welder Plastic Goals Welder Plastic Goals Time Frame: Dec 09, 2017 Eating (FIM): 7 Eating (QC): 6 Groomin Oral Hygiene (QC): 6 Bathing(FIM): 6 Shower/Bathe Self (QC): 6 Upper Body Dressing(FIM): 6 Upper Body Dressing (QC): 6 Lower Body Dressing(FIM): 6 Lower Body Dressing (QC): 6 On/Off Footwear (QC): 6 Toileting(FIM): 6 Toileting Hygiene (QC): 6 Toilet/Commode Transfer(FIM): 6 Toilet/Commode Transfer (QC): 6 Shower Transfer(FIM): 6 Additional Goals: 1-Demonstrate ADL Tasks, 2-Verbalize Understanding, 3- ImproveStrength/Main 1=Demonstrate adherence to instructed precautions during ADL tasks. 2=Patient will verbalize/demonstrate understanding of assistive devices/ modifications for ADL. 3=Patient will improve strength/tolerance for activity to enable patient to perform ADL's. OT Education/Plan Problem List/Assessment Pt would benefit from skilled OT to increase her independence in basic self care after a fall with ankle fracture, Discharge Recommendations Plan/Recommendations: Continue POC Treatment Plan/Plan of Care Patient would benefit from OT for education, treatment and training to promote independence in ADL's, mobility, safety and/or upper extremity function for ADL' s. Plan of Care: ADL Retraining, Functional Mobility, UE Funct Exercise/Act, UE Neuromus Re-Ed/Coord, OTHER (energy conservation education) Treatment Duration: Dec 09, 2017 Frequency: At least 5 of 7 days/Wk (IRF) Estimated Hrs Per Day: 1.5 hours per day Agreement: Yes Rehab Potential: Good Time/GCodes Start Time: 07:05 Stop Time: 08:05 Total Time Billed (hr/min): 60 Billed Treatment Time 1 visit- ADL 4 (60 min) GLADIS JACK Dec 01, 2017 08:16
--- NOTE | 2017-12-01 08:28 | Progress Note (SOAP) ---
Subjective Time Seen by Provider: 08:25 Subjective/Events-last exam Patient feeling good. Patient hypotensive at night. Patient unable to get up and down steps Objective Exam Vital Signs Date Time Temp Pulse Resp B/P (MAP) Pulse Ox O2 Delivery O2 Flow Rate FiO2 12/01/17 05:20 98.6 59 16 139/84 (102) 97 Room Air 11/30/17 22:18 75 93/65 (74) 11/30/17 20:33 98.2 76 16 103/68 (80) 97 Room Air 11/30/17 20:30 Room Air 11/30/17 16:16 96.1 65 16 91/60 (70) 98 Room Air 11/30/17 09:00 Room Air I & O 12/01/17 07:00 Intake Total 1020 ml Balance 1020 ml Capillary Refill : Less Than 3 Seconds General Appearance: No Apparent Distress, WD/WN HEENT: Normal ENT Inspection Neck: Normal Inspection Respiratory: No Accessory Muscle Use, No Respiratory Distress Cardiovascular: Regular Rate, Rhythm Assessment/Plan Assessment/Plan Assess & Plan/Chief Complaint Ankle fracture right. Hypertension. Irregular heartbeat. Coronary artery disease. Hyperlipidemia.. . 11/23/17. Ankle fracture) Hypertension under control. Irregular heartbeat as usual. Coronary artery disease. Hyperlipidemia. . 11/24/17. Right ankle fracture. Hypertension. Coronary artery disease. . /foursquare shaking. Right ankle fracture. Hypertension. Coronary artery disease. Heart in sinus rhythm today. . 11/29/17. Right ankle fracture. Hypertension. Coronary artery disease. Heart regular rate rhythm. Patient working at her problem. . 11/30/17. Right ankle fracture. Hypertension. Coronary artery disease. Heart regular today.. . Right ankle fracture. Hypertension. Coronary artery disease. Heart regular today Clinical Quality Measures DVT/VTE Risk/Contraindication: Risk Factor Score Per Nursin RFS Level Per Nursing on Admit: 4+=Very High AIME RDORIGUEZ DO Dec 01, 2017 08:28
--- NOTE | 2017-12-01 08:41 | PM & R (SOAP) Progress Note ---
Subjective This was a face to face visit with the patient. Date Seen by Provider: Dec 01, 2017 Time Seen by Provider: 07:25 Subjective/Events-last exam Patient was seen in her room this AM Patient SBA for transfers. Objective Physician Exam Last Set of Vital Signs Vital Signs Date Time Temp Pulse Resp B/P (MAP) Pulse Ox O2 Delivery O2 Flow Rate FiO2 12/01/17 05:20 98.6 59 16 139/84 (102) 97 Room Air Capillary Refill : Less Than 3 Seconds I&O Intake and Output 12/01/17 00:00 Intake Total 870 ml Output Total 900 ml Balance -30 ml Intake Oral 870 ml Output Urine Total 900 ml # Voids 4 # Bowel Movements 2 General: Alert, Oriented X3, Cooperative, No Acute Distress HEENT: Atraumatic, PERRLA, EOMI, Mucous Memb Moist/[place] Neck: Supple, No JVD Lungs: Clear to Auscultation Heart: Regular Rate Abdomen: Normal Bowel Sounds, Soft Extremities: Other (Dressing rt ankle) Neuro: Other (Functional strength Sensation intact Cognition intact) Assessment/Plan Assessment and Plan RT ankle fracture s/p repair DR Elizabeth HTN controlled Postop anemia DVT Prophylaxis on Lovenox subcut Plan Continue PT/OT Next Team Conference 12-06-17 Co-Morbidities that are continuing to impact the rehab process: (include details ) JACI RITTER MD Dec 01, 2017 08:41
--- NOTE | 2017-12-01 14:35 | Physical Therapy Daily Note ---
PT Daily Note-Current Subjective Pt. agrees to Rx. States " you wore me out the other day when you started me walking" "but I am stronger" Pain Numeric Pain Scale: 0-No Pain Mental Status Patient Orientation: Normal For Age Attachments: Other-See Comments (half cast LLE/foot ankle) Transfers Functional [place] Measure 0=Not Assessed/NA 4=Minimal Assistance 1=Total Assistance 5=Supervision or Setup 2=Maximal Assistance 6=Modified [place] 3=Moderate Assistance 7=Complete IndependenceIRFPAI Quality Coding Scale 6 Independent with activity with or without an assistive device 5 Patient requires set up or clean up by helper. Patient completes activity by themselves 4 Supervision or touching assist (CGA). [place] provide cues , steadying assist 3 The helper provides less than half the effort to complete the activity 2 The helper provides more than half the effort to complete the activity 1 Dependent. The helper does all the effort to complete an activity 7 Patient refused to complete or attempt activity 9 The patient did not perform the activity before the current illness or injury 88 Not attempted due to Medical conditions or safety concerns Transfers (B, C, W/C) (FIM): 5 Scootin Rollin Supine to/from Sit: 6 Sit to/from Stand: 5 Weight Bearing Right Lower Extremity: Right Touch Toe Bearing Left Lower Extremity: Left Full Weight Bearing Gait Training Does the Patient Walk?: Yes Gait (FIM): 1 Distance (FIM): 1=up to 49 ft (10ft x3) Gait Level of Assist: 4 Gait Persons Needed: 1 Gait Assistive Device: FWW short controlled hops, no LOB Wheelchair Training Does the Pt Use a Wheelchair?: Yes Wheelchair (FIM): 5 Wheelchair Distance: 3=150 ft (x2) Wheelchair Level of Assist: 5 Type of Wheelchair: Manual Exercises Supine Ex: Ankle pumps, Quad Set, Rolling, Glut sets, Heel Slides, Short Arc Quads, Scooting, Straight leg raise, Hip abd/add Supine Reps: 15 Seated Therapy Exercises: Sit to stand, Long arc quads, Hip flexion Seated Reps: 12 NuStep Minutes: 10 NuStep Workload: 3 Assessment Current Status: Good Progress PT Short Term Goals Short Term Goals Wheelchair Distance: 150' PT Prison Goals Batter Mixer Helper Goals PT Batter Mixer Helper Goals Time Frame: Dec 09, 2017 Transfers (B,C,W/C) (FIM): 6 Sit to Lying (QC): 6 Lying-Sitting on Side/Bed(QC): 6 Sit to Stand (QC): 6 Rollin Roll Left to Right (QC): 6 Chair/Hon-dq-Lbsrb Xfer(QC): 6 Car Transfer (QC): 6 Does the Patient Walk: No and Walking Goal IS indicated Gait (FIM): 1 Gait distance (FIM): 1=up to 49 ft Distance: 10' Walk 10 feet (QC): 5 Walk 10ft-Uneven Surface(QC): 88 Walk 50ft with 2 Turns (QC): 88 Walk 150 ft (QC): 88 Gait Level of Assist: 5 Gait Assistive Device: FWW Wheelchair (FIM): 6 Wheelchair distance (FIM): 7=794-97 ft Distance: 125' Wheelchair Level of Assist: 6 Wheel 50 feet with 2 turns (QC: 6 Stairs (FIM): 2 # of Steps: 4 1 Step (curb) (QC): 3 4 Steps (QC): 3 12 Steps (QC): 88 Stairs Level Of Assist: 3 Picking up an Object (QC): 5 PT Plan Treatment/Plan Treatment Plan: Continue Plan of Care Treatment Plan: Bed Mobility, Concurrent Therapy, Education, Functional Activity Main, Functional Strength, Group Therapy, Gait, Safety, Therapeutic Exercise, Transfers Treatment Duration: Dec 09, 2017 Frequency: At least 5 of 7 days/Wk (IRF) Estimated Hrs Per Day: 1.5 hours per day Patient and/or Family Agrees t: Yes Safety Risks/Education Patient Education: Gait Training, Transfer Techniques, Correct Positioning, W/ C Management, Disease Process, Safety Issues Teaching Recipient: Patient Teaching Methods: Demonstration, Discussion Response to Teaching: Verbalize Understanding, Return Demonstration, Reinforcement Needed Time/GCodes Time In: 1100 Time Out: 1200 Total Billed Treatment Time: 60 Total Billed Treatment 1,GT15m,FA25m,EX20m G Codes Necessary: KARELY Mccray PRODUCTION CONTROL EXPEDITER Dec 01, 2017 14:34
--- NOTE | 2017-12-01 14:55 | Therapy Group Daily Note ---
Therapy Daily Group Note Patient Education Topic Other List Below (rehab orientation, neuropathy, oral care, nutrition) Exercises Fine Motor (hand to mouth) Other/Notes Pt to group and back via w/c. Group consisted of introductions (name, place, worst food eaten), socialization, ARU description/expectation, education on nutrition/oral health/neuropathy and fine motor activity. Pt introduced self appropriately and actively listened to peers. Pt verbalized understanding about educational topics. Contributed to topics and discussions throughout group. Pt demonstrated good fine motor skills during activities during group. After group, pt. to room SBA with FWW. All needs met. [facility] Start Time: 13:00 Stop Time: 14:15 Total Billed Treatment Time: 75 Total Billed Treatment 1,GRP KARELY OLSON RN APPEALS Dec 01, 2017 14:55
[2017-12-01 16:53] VITALS: BP 115/60
[2017-12-01] MEDS: KCL 10 MEQ TAB (MICRO K) PO SCH (17:21)
[2017-12-01] MEDS: ATENOLOL 25 MG (TENORMIN) TAB PO SCH (20:40)
[2017-12-01] MEDS: LEVOTHYROXINE 75 MCG (LEVOTHROID) TABLET PO SCH (20:41)
[2017-12-01] MEDS: SIMvastatin 10 MG (ZOCOR) TAB PO SCH (20:41)
[2017-12-01] MEDS: ASPIRIN E.C. 81 MG (ECOTRIN) TAB PO SCH (20:41)
[2017-12-01] MEDS: ESOMEPRAZOLE 20 MG PO SCH (20:41)
[2017-12-01] MEDS: POLYETHYLENE GLYCOL 17 GM (MIRALAX) PACK PO SCH (20:42)
[2017-12-01] MEDS: HYDROCHLOROTHIAZIDE 12.5 MG (HCTZ) CAP PO SCH (20:42)
[2017-12-01] MEDS: VALSARTAN 80 MG (DIOVAN) TAB PO SCH (20:43)
[2017-12-01 20:45] VITALS: BP 122/79
[2017-12-01] MEDS: oxyCODONE/APAP 5/325MG (PERCOCET 5) TABLET PO PRN (22:40)
[2017-12-02 05:41] VITALS: BP 139/84
[2017-12-02] MEDS: ENOXAPARIN 40 MG/0.4 ML (LOVENOX) SYR SC SCH (06:04)
--- NOTE | 2017-12-02 08:16 | PM & R (SOAP) Progress Note ---
Subjective This was a face to face visit with the patient. Date Seen by Provider: Dec 02, 2017 Time Seen by Provider: 07:30 Subjective/Events-last exam Patient was seen in her room this AM Patient SBA for transfers Appreciate DR eVrma note Objective Physician Exam Last Set of Vital Signs Vital Signs Date Time Temp Pulse Resp B/P (MAP) Pulse Ox O2 Delivery O2 Flow Rate FiO2 12/02/17 05:41 98.0 59 18 139/84 (102) 97 Room Air Capillary Refill : Less Than 3 Seconds I&O Intake and Output 12/02/17 00:00 Intake Total 1560 ml Balance 1560 ml Intake Oral 1560 ml # Voids 7 # Bowel Movements 1 General: Alert, Oriented X3, Cooperative, No Acute Distress HEENT: Atraumatic, PERRLA, EOMI, Mucous Memb Moist/[place] Neck: Supple, No JVD Lungs: Clear to Auscultation Heart: Regular Rate Abdomen: Normal Bowel Sounds, Soft Extremities: Other (Dressing rt ankle) Neuro: Other (Functional strength Sensation intact Cognition intact) Assessment/Plan Assessment and Plan Rt Ankle fracture s/p repair DR Elizabeth HTN controlled Postop anemia DVT Prophylaxis on Lovenox subcut Plan Continue PT/OT Team Conference next week re discharge plans Co-Morbidities that are continuing to impact the rehab process: (include details ) JACI RITTER MD Dec 02, 2017 08:16
[2017-12-02] MEDS: DOCUSATE SODIUM 100 MG (COLACE) CAP PO SCH ×2 (08:27→20:45)
--- NOTE | 2017-12-02 08:45 | Physical Therapy Daily Note ---
PT Daily Note-Current Subjective Pt. agrees to rx. Wants to get up, get ready for the day Pain Numeric Pain Scale: 0-No Pain Mental Status Patient Orientation: Normal For Age Attachments: Other-See Comments (LLE half cast) Transfers Functional [place] Measure 0=Not Assessed/NA 4=Minimal Assistance 1=Total Assistance 5=Supervision or Setup 2=Maximal Assistance 6=Modified [place] 3=Moderate Assistance 7=Complete IndependenceIRFPAI Quality Coding Scale 6 Independent with activity with or without an assistive device 5 Patient requires set up or clean up by helper. Patient completes activity by themselves 4 Supervision or touching assist (CGA). [place] provide cues , steadying assist 3 The helper provides less than half the effort to complete the activity 2 The helper provides more than half the effort to complete the activity 1 Dependent. The helper does all the effort to complete an activity 7 Patient refused to complete or attempt activity 9 The patient did not perform the activity before the current illness or injury 88 Not attempted due to Medical conditions or safety concerns Transfers (B, C, W/C) (FIM): 5 Scootin Rollin Supine to/from Sit: 5 Sit to/from Stand: 6 Bed to/from Chair: 5 Weight Bearing Right Lower Extremity: Right Touch Toe Bearing Left Lower Extremity: Left Full Weight Bearing Gait Training Does the Patient Walk?: Yes Gait (FIM): 1 Distance (FIM): 1=up to 49 ft (7ftx2) Gait Level of Assist: 4 Gait Persons Needed: 1 Gait Assistive Device: FWW Exercises Supine Ex: Ankle pumps, Quad Set, Rolling, Glut sets, Heel Slides, Scooting, Straight leg raise, Hip abd/add Supine Reps: 15 Seated Therapy Exercises: Sit to stand, Long arc quads, Hip flexion Seated Reps: 10 Assessment Current Status: Good Progress PT Short Term Goals Short Term Goals Wheelchair Distance: 150' PT Retirement Goals Securities Lending Trader Goals PT Securities Lending Trader Goals Time Frame: Dec 09, 2017 Transfers (B,C,W/C) (FIM): 6 Sit to Lying (QC): 6 Lying-Sitting on Side/Bed(QC): 6 Sit to Stand (QC): 6 Rollin Roll Left to Right (QC): 6 Chair/Sih-vc-Xpbjq Xfer(QC): 6 Car Transfer (QC): 6 Does the Patient Walk: No and Walking Goal IS indicated Gait (FIM): 1 Gait distance (FIM): 1=up to 49 ft Distance: 10' Walk 10 feet (QC): 5 Walk 10ft-Uneven Surface(QC): 88 Walk 50ft with 2 Turns (QC): 88 Walk 150 ft (QC): 88 Gait Level of Assist: 5 Gait Assistive Device: FWW Wheelchair (FIM): 6 Wheelchair distance (FIM): 5=037-08 ft Distance: 125' Wheelchair Level of Assist: 6 Wheel 50 feet with 2 turns (QC: 6 Stairs (FIM): 2 # of Steps: 4 1 Step (curb) (QC): 3 4 Steps (QC): 3 12 Steps (QC): 88 Stairs Level Of Assist: 3 Picking up an Object (QC): 5 PT Plan Treatment/Plan Treatment Plan: Continue Plan of Care Treatment Plan: Bed Mobility, Concurrent Therapy, Education, Functional Activity Main, Functional Strength, Group Therapy, Gait, Safety, Therapeutic Exercise, Transfers Treatment Duration: Dec 09, 2017 Frequency: At least 5 of 7 days/Wk (IRF) Estimated Hrs Per Day: 1.5 hours per day Patient and/or Family Agrees t: Yes Safety Risks/Education Patient Education: Gait Training, Transfer Techniques, Correct Positioning, Safety Issues Teaching Recipient: Patient Teaching Methods: Demonstration, Discussion Response to Teaching: Verbalize Understanding, Return Demonstration, Reinforcement Needed Time/GCodes Time In: 810 Time Out: 835 Total Billed Treatment Time: 25 Total Billed Treatment 1,EX10,FA15 G Codes Necessary: KARELY Mccray PTA Dec 02, 2017 08:45
[2017-12-02] MEDS: oxyCODONE/APAP 5/325MG (PERCOCET 5) TABLET PO PRN ×2 (16:08→20:47)
[2017-12-02] MEDS: KCL 10 MEQ TAB (MICRO K) PO SCH (16:08)
[2017-12-02 17:53] VITALS: BP 108/72
[2017-12-02] MEDS: POLYETHYLENE GLYCOL 17 GM (MIRALAX) PACK PO SCH (19:24)
[2017-12-02] MEDS: SIMvastatin 10 MG (ZOCOR) TAB PO SCH (20:43)
[2017-12-02] MEDS: ASPIRIN E.C. 81 MG (ECOTRIN) TAB PO SCH (20:43)
[2017-12-02] MEDS: ATENOLOL 25 MG (TENORMIN) TAB PO SCH (20:43)
[2017-12-02] MEDS: HYDROCHLOROTHIAZIDE 12.5 MG (HCTZ) CAP PO SCH (20:44)
[2017-12-02] MEDS: LEVOTHYROXINE 75 MCG (LEVOTHROID) TABLET PO SCH (20:44)
[2017-12-02] MEDS: VALSARTAN 80 MG (DIOVAN) TAB PO SCH (20:45)
[2017-12-02] MEDS: ESOMEPRAZOLE 20 MG PO SCH (20:45)
[2017-12-02 20:47] VITALS: BP 100/63
[2017-12-03 06:00] VITALS: BP 115/61
[2017-12-03] MEDS: ENOXAPARIN 40 MG/0.4 ML (LOVENOX) SYR SC SCH (06:37)
[2017-12-03] MEDS: DOCUSATE SODIUM 100 MG (COLACE) CAP PO SCH ×2 (09:13→20:10)
--- NOTE | 2017-12-03 10:22 | Progress Note-Standard ---
Standard Progress Note Progress Notes/Assess & Plan Date Seen by Provider: Dec 03, 2017 Time Seen by Provider: 10:21 Progress/Assessment & Plan feeling better RLE--in splint NVI s/p I and D and ORIF r ankle TTWB RLE Final Diagnosis No complaints RLE--incision clean and dry. No erythema, no DC. Incisions well healed sutures removed s/p ORIF R ankle continue TTWB CARLOS MALLOY MD Dec 03, 2017 10:22
[2017-12-03] MEDS: KCL 10 MEQ TAB (MICRO K) PO SCH (17:11)
[2017-12-03 17:50] VITALS: BP 139/78
[2017-12-03 20:00] VITALS: BP 110/58
[2017-12-03] MEDS: LEVOTHYROXINE 75 MCG (LEVOTHROID) TABLET PO SCH (20:10)
[2017-12-03] MEDS: ATENOLOL 25 MG (TENORMIN) TAB PO SCH (20:10)
[2017-12-03] MEDS: ASPIRIN E.C. 81 MG (ECOTRIN) TAB PO SCH (20:10)
[2017-12-03] MEDS: HYDROCHLOROTHIAZIDE 12.5 MG (HCTZ) CAP PO SCH ×2 (20:10→21:00)
[2017-12-03] MEDS: SIMvastatin 10 MG (ZOCOR) TAB PO SCH (20:10)
[2017-12-03] MEDS: POLYETHYLENE GLYCOL 17 GM (MIRALAX) PACK PO SCH (20:11)
[2017-12-03] MEDS: oxyCODONE/APAP 5/325MG (PERCOCET 5) TABLET PO PRN (20:11)
[2017-12-03] MEDS: ESOMEPRAZOLE 20 MG PO SCH (20:11)
[2017-12-04] MEDS: oxyCODONE/APAP 5/325MG (PERCOCET 5) TABLET PO PRN ×2 (02:24→21:57)
[2017-12-04 05:04] VITALS: BP 118/65
[2017-12-04] MEDS: ENOXAPARIN 40 MG/0.4 ML (LOVENOX) SYR SC SCH (06:01)
--- NOTE | 2017-12-04 07:49 | Progress Note (SOAP) ---
Subjective Time Seen by Provider: 07:45 Subjective/Events-last exam Patient was at home night. Patient worried about her blood pressure. Objective Exam Vital Signs Date Time Temp Pulse Resp B/P (MAP) Pulse Ox O2 Delivery O2 Flow Rate FiO2 12/04/17 05:04 97.7 58 18 118/65 (82) 98 Room Air 12/03/17 21:00 Room Air 12/03/17 20:00 69 110/58 (75) 12/03/17 17:50 98.2 68 20 139/78 (98) 99 Room Air 12/03/17 09:00 Room Air I & O 12/04/17 07:00 Intake Total 1810 ml Balance 1810 ml Capillary Refill : Less Than 3 Seconds General Appearance: No Apparent Distress, WD/WN HEENT: Normal ENT Inspection Neck: Normal Inspection, Non Tender Respiratory: No Accessory Muscle Use, No Respiratory Distress Cardiovascular: No Murmur Gastrointestinal: non tender, soft Assessment/Plan Assessment/Plan Assess & Plan/Chief Complaint Ankle fracture right. Hypertension. Irregular heartbeat. Coronary artery disease. Hyperlipidemia.. . 11/23/17. Ankle fracture) Hypertension under control. Irregular heartbeat as usual. Coronary artery disease. Hyperlipidemia. . 11/24/17. Right ankle fracture. Hypertension. Coronary artery disease. . /square shaking. Right ankle fracture. Hypertension. Coronary artery disease. Heart in sinus rhythm today. . 11/29/17. Right ankle fracture. Hypertension. Coronary artery disease. Heart regular rate rhythm. Patient working at her problem. . 11/30/17. Right ankle fracture. Hypertension. Coronary artery disease. Heart regular today.. . Right ankle fracture. Hypertension. Coronary artery disease. Heart regular today. . 12/04/17. Right ankle fracture. Hypertension. Coronary artery disease. Heart regular rate and rhythm. Clinical Quality Measures DVT/VTE Risk/Contraindication: Risk Factor Score Per Nursin RFS Level Per Nursing on Admit: 4+=Very High AIME RODRIGUEZ DO Dec 04, 2017 07:49
--- NOTE | 2017-12-04 10:10 | Physical Therapy Daily Note ---
PT Daily Note-Current Subjective Pt. agrees toRx. States she isnt sure she can walk, doesnt really remember walking last week. No pain. Pain Numeric Pain Scale: 0-No Pain Mental Status Patient Orientation: Person, Place, Time, Situation pt. states she doesnt remember any exercises we did last week or how to agusto her shoe etc Transfers Functional [place] Measure 0=Not Assessed/NA 4=Minimal Assistance 1=Total Assistance 5=Supervision or Setup 2=Maximal Assistance 6=Modified [place] 3=Moderate Assistance 7=Complete IndependenceIRFPAI Quality Coding Scale 6 Independent with activity with or without an assistive device 5 Patient requires set up or clean up by helper. Patient completes activity by themselves 4 Supervision or touching assist (CGA). [place] provide cues , steadying assist 3 The helper provides less than half the effort to complete the activity 2 The helper provides more than half the effort to complete the activity 1 Dependent. The helper does all the effort to complete an activity 7 Patient refused to complete or attempt activity 9 The patient did not perform the activity before the current illness or injury 88 Not attempted due to Medical conditions or safety concerns Transfers (B, C, W/C) (FIM): 5 Scootin Rollin Supine to/from Sit: 6 Sit to/from Stand: 5 Bed to/from Chair: 5 Weight Bearing Right Lower Extremity: Right Touch Toe Bearing Left Lower Extremity: Left Full Weight Bearing Gait Training Does the Patient Walk?: Yes Gait (FIM): 1 Distance (FIM): 1=up to 49 ft (15ftx4) Gait Level of Assist: 4 Gait Persons Needed: 1 Gait Assistive Device: FWW with shoe on left pt. manages better, follows wt bearing precautions well Exercises Supine Ex: Ankle pumps, Quad Set, Rolling, Glut sets, Heel Slides, Short Arc Quads, Scooting, Straight leg raise, Hip abd/add Supine Reps: 20 side lying calm shells and hip abd Treatments w/c mobility fig 8s, tight areas, more practice turning during gait and approaching chairs etc Assessment Current Status: Good Progress needs motivated and encouraged, not sure if patient really cant remember previously taught exercises PT Short Term Goals Short Term Goals Wheelchair Distance: 150' PT Senior Applications Developer Goals Fdc Goals PT Fdc Goals Time Frame: Dec 09, 2017 Transfers (B,C,W/C) (FIM): 6 Sit to Lying (QC): 6 Lying-Sitting on Side/Bed(QC): 6 Sit to Stand (QC): 6 Rollin Roll Left to Right (QC): 6 Chair/Xjq-sp-Venli Xfer(QC): 6 Car Transfer (QC): 6 Does the Patient Walk: No and Walking Goal IS indicated Gait (FIM): 1 Gait distance (FIM): 1=up to 49 ft Distance: 10' Walk 10 feet (QC): 5 Walk 10ft-Uneven Surface(QC): 88 Walk 50ft with 2 Turns (QC): 88 Walk 150 ft (QC): 88 Gait Level of Assist: 5 Gait Assistive Device: FWW Wheelchair (FIM): 6 Wheelchair distance (FIM): 6=660-62 ft Distance: 125' Wheelchair Level of Assist: 6 Wheel 50 feet with 2 turns (QC: 6 Stairs (FIM): 2 # of Steps: 4 1 Step (curb) (QC): 3 4 Steps (QC): 3 12 Steps (QC): 88 Stairs Level Of Assist: 3 Picking up an Object (QC): 5 PT Plan Treatment/Plan Treatment Plan: Continue Plan of Care Treatment Plan: Bed Mobility, Concurrent Therapy, Education, Functional Activity Main, Functional Strength, Group Therapy, Gait, Safety, Therapeutic Exercise, Transfers Treatment Duration: Dec 09, 2017 Frequency: At least 5 of 7 days/Wk (IRF) Estimated Hrs Per Day: 1.5 hours per day Patient and/or Family Agrees t: Yes Safety Risks/Education Patient Education: Gait Training, Transfer Techniques, Correct Positioning, W/ C Management, Disease Process, Safety Issues Teaching Recipient: Patient Teaching Methods: Demonstration, Discussion Response to Teaching: Verbalize Understanding, Return Demonstration, Reinforcement Needed Time/GCodes Time In: 915 Time Out: 1015 Total Billed Treatment Time: 60 Total Billed Treatment 1,WC15m,EX20m, GT25m G Codes Necessary: No KARELY OLSON BOILER SETTER Dec 04, 2017 10:10
--- NOTE | 2017-12-04 10:18 | Occupational Ther Daily Note ---
OT Current Status-Daily Note Subjective Pt alert, lying in bed. No c/o pain. Pt agrees to therapy. Mental Status/Objective Patient Orientation: Person, Place, Time, Situation Functional [place] Measure 0=Not Assessed/NA 4=Minimal Assistance 1=Total Assistance 5=Supervision or Setup 2=Maximal Assistance 6=Modified [place] 3=Moderate Assistance 7=Complete [place] ADL-Treatment Functional [place] Measure 0=Not Assessed/NA 4=Minimal Assistance 1=Total Assistance 5=Supervision or Setup 2=Maximal Assistance 6=Modified [place] 3=Moderate Assistance 7=Complete IndependenceIRFPAI Quality Coding Scale 6 Independent with activity with or without an assistive device 5 Patient requires set up or clean up by helper. Patient completes activity by themselves 4 Supervision or touching assist (CGA). [place] provide cues , steadying assist 3 The helper provides less than half the effort to complete the activity 2 The helper provides more than half the effort to complete the activity 1 Dependent. The helper does all the effort to complete an activity 7 Patient refused to complete or attempt activity 9 The patient did not perform the activity before the current illness or injury 88 Not attempted due to Medical conditions or safety concerns Grooming (FIM): 6 (Pt able to complete by self at w/c level in front of sink. ) Oral Hygiene (QC): 6 Bathing (FIM): 6 (Pt able to complete by self using hand held shower, shower bench, long handled sponge, and grabbars for stability. Concern for safety. ) Bathing Location: L Arm, R Arm, L Upper Leg, R Upper Leg, L Lower Leg ( including foot), Chest, Abdomen, Buttocks, Perineal Area Shower/Bathe Self (QC): 6 Upper Body (FIM): 6 (Pt able to retrieve clothing and able to don/doff by self at w/c level.) Upper Body Dressing (QC): 6 Lower Body Dressing (FIM): 6 (Pt able to complete by self at w/c level using AE. Pt uses grabbars for stability while standing to hike pants over hips. Concerns for safety. ) Lower Body Dressing (QC): 6 On/Off Footwear (QC): 6 (Pt able to don/doff socks byself using AE.) Toileting (FIM): 6 (Pt able to complete by self using grabbars and BSC for stability. Concerns for safety. ) Toileting Hygiene (QC): 6 Transfers (B, C, W/C) (FIM): 6 (Pt able to go from supine to EOB by self. Pt uses FWW for stability on transfer from EOB to w/c. Concerns for safety. ) Toilet/Commode Transfer (FIM): 6 (Pt completes using grabbars and BSC for stability. Concerns for safety. ) Toilet Transfer (QC): 6 Shower Transfer(FIM): 6 (Pt completes using grabbars and shower bench for stability. Concerns for safety. ) After therapy, pt at w/c level sitting in front of bathroom sink applying cosmetics. Call light/ phone within reach. All needs met in room. OT Short Term Goals Short Term Goals Time Frame: Nov 28, 2017 Toileting(FIM): 4 Toilet/Commode Transfer(FIM): 4 Additional Short Term Goals: 1-Demonstrate ADL Tasks, 2-Verbalize Understanding , 3-ImproveStrength/Main 1=Demonstrate adherence to instructed precautions during ADL tasks. 2=Patient will verbalize/demonstrate understanding of assistive devices/ modifications for ADL. 3=Patient will improve strength/tolerance for activity to enable patient to perform ADL's. OT Semiconductor Bonder Goals Mcc Goals Time Frame: Dec 09, 2017 Eating (FIM): 7 Eating (QC): 6 Groomin Oral Hygiene (QC): 6 Bathing(FIM): 6 Shower/Bathe Self (QC): 6 Upper Body Dressing(FIM): 6 Upper Body Dressing (QC): 6 Lower Body Dressing(FIM): 6 Lower Body Dressing (QC): 6 On/Off Footwear (QC): 6 Toileting(FIM): 6 Toileting Hygiene (QC): 6 Toilet/Commode Transfer(FIM): 6 Toilet/Commode Transfer (QC): 6 Shower Transfer(FIM): 6 Additional Goals: 1-Demonstrate ADL Tasks, 2-Verbalize Understanding, 3- ImproveStrength/Main 1=Demonstrate adherence to instructed precautions during ADL tasks. 2=Patient will verbalize/demonstrate understanding of assistive devices/ modifications for ADL. 3=Patient will improve strength/tolerance for activity to enable patient to perform ADL's. OT Education/Plan Problem List/Assessment Pt would benefit from skilled OT to increase her independence in basic self care after a fall with ankle fracture, Discharge Recommendations Plan/Recommendations: Continue POC Treatment Plan/Plan of Care Patient would benefit from OT for education, treatment and training to promote independence in ADL's, mobility, safety and/or upper extremity function for ADL' s. Plan of Care: ADL Retraining, Functional Mobility, UE Funct Exercise/Act, UE Neuromus Re-Ed/Coord, OTHER (energy conservation education) Treatment Duration: Dec 09, 2017 Frequency: At least 5 of 7 days/Wk (IRF) Estimated Hrs Per Day: 1.5 hours per day Agreement: Yes Rehab Potential: Good Time/GCodes Start Time: 08:00 Stop Time: 09:00 Total Time Billed (hr/min): 60 Billed Treatment Time 1 visit- ADL 4 (60 min) GLADIS JACK Dec 04, 2017 10:18
[2017-12-04] MEDS: DOCUSATE SODIUM 100 MG (COLACE) CAP PO SCH ×2 (10:54→21:46)
--- NOTE | 2017-12-04 13:04 | Physical Therapy Daily Note ---
PT Daily Note-Current Subjective Pts. present, brought pts own walker. instructed educated in certain aspects of pts function and care today Mental Status Patient Orientation: Normal For Age Attachments: Other-See Comments (half cast ) Transfers Functional [place] Measure 0=Not Assessed/NA 4=Minimal Assistance 1=Total Assistance 5=Supervision or Setup 2=Maximal Assistance 6=Modified [place] 3=Moderate Assistance 7=Complete IndependenceIRFPAI Quality Coding Scale 6 Independent with activity with or without an assistive device 5 Patient requires set up or clean up by helper. Patient completes activity by themselves 4 Supervision or touching assist (CGA). [place] provide cues , steadying assist 3 The helper provides less than half the effort to complete the activity 2 The helper provides more than half the effort to complete the activity 1 Dependent. The helper does all the effort to complete an activity 7 Patient refused to complete or attempt activity 9 The patient did not perform the activity before the current illness or injury 88 Not attempted due to Medical conditions or safety concerns Transfers (B, C, W/C) (FIM): 5 Scootin Rollin Supine to/from Sit: 6 Sit to/from Stand: 5 Bed to/from Chair: 5 Car Transfer (QC): 5 Weight Bearing Right Lower Extremity: Right Touch Toe Bearing Left Lower Extremity: Left Full Weight Bearing Gait Training Does the Patient Walk?: Yes Gait Assistive Device: FWW 15ftx2 FWW trained in use of gait belt, proper hand hold etc Exercises Standing: Hip Abduction, Hamstring curls, 3 way Ex=Flex, Abd, Ext Standing Reps: 12 (RLE only) Assessment Current Status: Good Progress present and supportive PT Short Term Goals Short Term Goals Wheelchair Distance: 150' PT Residential Goals Landing Signal Officer Goals PT Residential Goals Time Frame: Dec 09, 2017 Transfers (B,C,W/C) (FIM): 6 Sit to Lying (QC): 6 Lying-Sitting on Side/Bed(QC): 6 Sit to Stand (QC): 6 Rollin Roll Left to Right (QC): 6 Chair/Geh-mo-Nwtde Xfer(QC): 6 Car Transfer (QC): 6 Does the Patient Walk: No and Walking Goal IS indicated Gait (FIM): 1 Gait distance (FIM): 1=up to 49 ft Distance: 10' Walk 10 feet (QC): 5 Walk 10ft-Uneven Surface(QC): 88 Walk 50ft with 2 Turns (QC): 88 Walk 150 ft (QC): 88 Gait Level of Assist: 5 Gait Assistive Device: FWW Wheelchair (FIM): 6 Wheelchair distance (FIM): 4=337-29 ft Distance: 125' Wheelchair Level of Assist: 6 Wheel 50 feet with 2 turns (QC: 6 Stairs (FIM): 2 # of Steps: 4 1 Step (curb) (QC): 3 4 Steps (QC): 3 12 Steps (QC): 88 Stairs Level Of Assist: 3 Picking up an Object (QC): 5 PT Plan Treatment/Plan Treatment Plan: Continue Plan of Care Treatment Plan: Bed Mobility, Concurrent Therapy, Education, Functional Activity Main, Functional Strength, Group Therapy, Gait, Safety, Therapeutic Exercise, Transfers Treatment Duration: Dec 09, 2017 Frequency: At least 5 of 7 days/Wk (IRF) Estimated Hrs Per Day: 1.5 hours per day Patient and/or Family Agrees t: Yes Safety Risks/Education Patient Education: Gait Training, Transfer Techniques, Correct Positioning, Disease Process, Safety Issues Teaching Recipient: Patient, Significant Other Teaching Methods: Demonstration Response to Teaching: Verbalize Understanding, Return Demonstration, Reinforcement Needed Time/GCodes Time In: 1230 Time Out: 1300 Total Billed Treatment Time: 30 Total Billed Treatment 1,FA20,EX10 G Codes Necessary: KARELY Mccray HOSPICE RN Dec 04, 2017 13:04
--- NOTE | 2017-12-04 14:07 | Occupational Ther Daily Note ---
OT Current Status-Daily Note Subjective Pt alert, sitting in w/c. No c/o pain. Pt agrees to therapy and being educated on tub bench transfer techniques. Mental Status/Objective Patient Orientation: Person, Place, Time, Situation Functional [place] Measure 0=Not Assessed/NA 4=Minimal Assistance 1=Total Assistance 5=Supervision or Setup 2=Maximal Assistance 6=Modified [place] 3=Moderate Assistance 7=Complete [place] ADL-Treatment Pt educated on tub bench transfer techniques. MECHANIC INSULATOR student demonstrated technique. Pt verbalized understand and best technique needed to replicate home bathroom. Pt demonstrated x2 using FWW and w/c. Pt maneuvered w/c to tub then SPT with FWW. Pt was able to lift LE's into tub without assistance. Functional [place] Measure 0=Not Assessed/NA 4=Minimal Assistance 1=Total Assistance 5=Supervision or Setup 2=Maximal Assistance 6=Modified [place] 3=Moderate Assistance 7=Complete IndependenceIRFPAI Quality Coding Scale 6 Independent with activity with or without an assistive device 5 Patient requires set up or clean up by helper. Patient completes activity by themselves 4 Supervision or touching assist (CGA). [place] provide cues , steadying assist 3 The helper provides less than half the effort to complete the activity 2 The helper provides more than half the effort to complete the activity 1 Dependent. The helper does all the effort to complete an activity 7 Patient refused to complete or attempt activity 9 The patient did not perform the activity before the current illness or injury 88 Not attempted due to Medical conditions or safety concerns Toileting (FIM): 6 (Pt able to complete using grabbars and BSC. Concerns for safety. ) Toileting Hygiene (QC): 6 Toilet/Commode Transfer (FIM): 6 (Pt completed using BSC and grabbars for stability.) Toilet Transfer (QC): 6 After therapy, pt in room sitting in w/c with call light/phone within reach. Family in room. All needs met. Education OT Patient Education: Safety issues, Transfer techniques, Use of adapted equipment Teaching Recipient: Patient Teaching Methods: Demonstration, Discussion Response to Teaching: Verbalize Understanding, Return Demonstration OT Short Term Goals Short Term Goals Time Frame: Nov 28, 2017 Toileting(FIM): 4 Toilet/Commode Transfer(FIM): 4 Additional Short Term Goals: 1-Demonstrate ADL Tasks, 2-Verbalize Understanding , 3-ImproveStrength/Main 1=Demonstrate adherence to instructed precautions during ADL tasks. 2=Patient will verbalize/demonstrate understanding of assistive devices/ modifications for ADL. 3=Patient will improve strength/tolerance for activity to enable patient to perform ADL's. OT Lead Manufacturing Technician Goals Lead Manufacturing Technician Goals Time Frame: Dec 09, 2017 Eating (FIM): 7 Eating (QC): 6 Groomin Oral Hygiene (QC): 6 Bathing(FIM): 6 Shower/Bathe Self (QC): 6 Upper Body Dressing(FIM): 6 Upper Body Dressing (QC): 6 Lower Body Dressing(FIM): 6 Lower Body Dressing (QC): 6 On/Off Footwear (QC): 6 Toileting(FIM): 6 Toileting Hygiene (QC): 6 Toilet/Commode Transfer(FIM): 6 Toilet/Commode Transfer (QC): 6 Shower Transfer(FIM): 6 Additional Goals: 1-Demonstrate ADL Tasks, 2-Verbalize Understanding, 3- ImproveStrength/Main 1=Demonstrate adherence to instructed precautions during ADL tasks. 2=Patient will verbalize/demonstrate understanding of assistive devices/ modifications for ADL. 3=Patient will improve strength/tolerance for activity to enable patient to perform ADL's. OT Education/Plan Problem List/Assessment Pt would benefit from skilled OT to increase her independence in basic self care after a fall with ankle fracture, Discharge Recommendations Plan/Recommendations: Continue POC Treatment Plan/Plan of Care Patient would benefit from OT for education, treatment and training to promote independence in ADL's, mobility, safety and/or upper extremity function for ADL' s. Plan of Care: ADL Retraining, Functional Mobility, UE Funct Exercise/Act, UE Neuromus Re-Ed/Coord, OTHER (energy conservation education) Treatment Duration: Dec 09, 2017 Frequency: At least 5 of 7 days/Wk (IRF) Estimated Hrs Per Day: 1.5 hours per day Agreement: Yes Rehab Potential: Good Time/GCodes Start Time: 13:00 Stop Time: 13:30 Total Time Billed (hr/min): 30 Billed Treatment Time 1 visit- FA 1 (22 min) ADL 1 (8min) GLADIS JACK Dec 04, 2017 14:07
[2017-12-04 15:34] VITALS: BP 101/67
[2017-12-04] MEDS: KCL 10 MEQ TAB (MICRO K) PO SCH (16:38)
[2017-12-04 20:48] VITALS: BP 107/67
[2017-12-04] MEDS: HYDROCHLOROTHIAZIDE 12.5 MG (HCTZ) CAP PO SCH (21:00)
[2017-12-04] MEDS: POLYETHYLENE GLYCOL 17 GM (MIRALAX) PACK PO SCH (21:00)
[2017-12-04] MEDS: SIMvastatin 10 MG (ZOCOR) TAB PO SCH (21:46)
[2017-12-04] MEDS: ASPIRIN E.C. 81 MG (ECOTRIN) TAB PO SCH (21:47)
[2017-12-04] MEDS: LEVOTHYROXINE 75 MCG (LEVOTHROID) TABLET PO SCH (21:49)
[2017-12-04] MEDS: ESOMEPRAZOLE 20 MG PO SCH (21:49)
[2017-12-04 23:00] VITALS: BP 120/74
[2017-12-04] MEDS: ATENOLOL 25 MG (TENORMIN) TAB PO SCH (23:14)
[2017-12-05] MEDS: oxyCODONE/APAP 5/325MG (PERCOCET 5) TABLET PO PRN ×4 (01:57→21:18)
[2017-12-05 05:24] VITALS: BP 120/69
[2017-12-05] MEDS: ENOXAPARIN 40 MG/0.4 ML (LOVENOX) SYR SC SCH (06:58)
--- NOTE | 2017-12-05 07:48 | Progress Note (SOAP) ---
Subjective Time Seen by Provider: 07:45 Subjective/Events-last exam Patient did not sleep last night. Patient feeling okay. Blood pressure doing good. Objective Exam Vital Signs Date Time Temp Pulse Resp B/P (MAP) Pulse Ox O2 Delivery O2 Flow Rate FiO2 12/05/17 05:24 97.2 58 18 120/69 (86) 97 Room Air 12/04/17 23:00 63 120/74 (89) Room Air 12/04/17 21:00 Room Air 12/04/17 20:48 61 107/67 (80) Room Air 12/04/17 18:02 Room Air 12/04/17 15:34 96.8 62 16 101/67 (78) 99 Room Air 12/04/17 08:15 Room Air I & O 12/05/17 07:00 Intake Total 1465 ml Balance 1465 ml Capillary Refill : Less Than 3 Seconds General Appearance: No Apparent Distress, WD/WN Neck: Normal Inspection Respiratory: Lungs Clear, No Accessory Muscle Use, No Respiratory Distress Cardiovascular: Regular Rate, Rhythm Assessment/Plan Assessment/Plan Assess & Plan/Chief Complaint Ankle fracture right. Hypertension. Irregular heartbeat. Coronary artery disease. Hyperlipidemia.. . 11/23/17. Ankle fracture) Hypertension under control. Irregular heartbeat as usual. Coronary artery disease. Hyperlipidemia. . 11/24/17. Right ankle fracture. Hypertension. Coronary artery disease. . /square shaking. Right ankle fracture. Hypertension. Coronary artery disease. Heart in sinus rhythm today. . 11/29/17. Right ankle fracture. Hypertension. Coronary artery disease. Heart regular rate rhythm. Patient working at her problem. . 11/30/17. Right ankle fracture. Hypertension. Coronary artery disease. Heart regular today.. . Right ankle fracture. Hypertension. Coronary artery disease. Heart regular today. . 12/04/17. Right ankle fracture. Hypertension. Coronary artery disease. Heart regular rate and rhythm.. . 12/05/17. Right ankle fracture. Hypertension. Coronary artery disease. Heart regular rate and rhythm Clinical Quality Measures DVT/VTE Risk/Contraindication: Risk Factor Score Per Nursin RFS Level Per Nursing on Admit: 4+=Very High AIME RODRIGUEZ DO Dec 05, 2017 07:48
[2017-12-05] MEDS ORDERED: traZODone 50 MG (DESYREL) TAB PO NR (08:00)
[2017-12-05] MEDS: DOCUSATE SODIUM 100 MG (COLACE) CAP PO SCH ×2 (08:11→21:18)
--- NOTE | 2017-12-05 08:11 | PM & R (SOAP) Progress Note ---
Subjective This was a face to face visit with the patient. Date Seen by Provider: Dec 05, 2017 Time Seen by Provider: 07:25 Subjective/Events-last exam Patient was seen in her room this AM Patient SBA for transfers Objective Physician Exam Last Set of Vital Signs Vital Signs Date Time Temp Pulse Resp B/P (MAP) Pulse Ox O2 Delivery O2 Flow Rate FiO2 12/05/17 05:24 97.2 58 18 120/69 (86) 97 Room Air Capillary Refill : Less Than 3 Seconds I&O Intake and Output 12/05/17 00:00 Intake Total 1325 ml Balance 1325 ml Intake Oral 1325 ml # Voids 4 # Bowel Movements 1 General: Alert, Oriented X3, Cooperative, No Acute Distress HEENT: Atraumatic, PERRLA, EOMI, Mucous Memb Moist/[place] Neck: Supple, No JVD Lungs: Clear to Auscultation Heart: Regular Rate Abdomen: Normal Bowel Sounds, Soft Extremities: Other (Dressing rt ankle) Neuro: Other (Functional strength Sensation intact Cognition intact) Assessment/Plan Assessment and Plan RT ankle fracture s/p repair DR Elizabeth HTN controlled Postop anemia DVT^ Prophylaxis on Lovenox subcut Plan Continue PT/OT Team Conference tomorrow Probable discharge by end of week will f/u with SW/Team Co-Morbidities that are continuing to impact the rehab process: (include details ) JACI RITTER MD Dec 05, 2017 08:11
--- NOTE | 2017-12-05 10:18 | Occupational Ther Daily Note ---
OT Current Status-Daily Note Subjective Pt alert, lying in bed. No c/o pain. Pt states that she didn't sleep well and is tired today. Mental Status/Objective Patient Orientation: Person, Place, Time, Situation Functional [place] Measure 0=Not Assessed/NA 4=Minimal Assistance 1=Total Assistance 5=Supervision or Setup 2=Maximal Assistance 6=Modified [place] 3=Moderate Assistance 7=Complete [place] ADL-Treatment Functional [place] Measure 0=Not Assessed/NA 4=Minimal Assistance 1=Total Assistance 5=Supervision or Setup 2=Maximal Assistance 6=Modified [place] 3=Moderate Assistance 7=Complete IndependenceIRFPAI Quality Coding Scale 6 Independent with activity with or without an assistive device 5 Patient requires set up or clean up by helper. Patient completes activity by themselves 4 Supervision or touching assist (CGA). [place] provide cues , steadying assist 3 The helper provides less than half the effort to complete the activity 2 The helper provides more than half the effort to complete the activity 1 Dependent. The helper does all the effort to complete an activity 7 Patient refused to complete or attempt activity 9 The patient did not perform the activity before the current illness or injury 88 Not attempted due to Medical conditions or safety concerns Grooming (FIM): 6 (Pt able to complete at w/c level in front of sink.) Oral Hygiene (QC): 6 Bathing (FIM): 6 (Pt able to complete using shower bench, grabbars, hand held shower and long handled sponge. Concern for safety.) Bathing Location: L Arm, R Arm, L Upper Leg, R Upper Leg, L Lower Leg ( including foot), Chest, Abdomen, Buttocks, Perineal Area Shower/Bathe Self (QC): 6 Upper Body (FIM): 6 (Pt able to complete by self at w/c level. ) Upper Body Dressing (QC): 6 Lower Body Dressing (FIM): 6 (Pt able to complete by self using grabbars for stability while standing to hikle pants over hips. Concern for safety. ) Lower Body Dressing (QC): 6 On/Off Footwear (QC): 6 (Pt able to don/doff sock using AE. ) Toileting (FIM): 6 (Pt able to compelte using BSC and grabbars for stability. Concern for safety. ) Toileting Hygiene (QC): 6 Transfers (B, C, W/C) (FIM): 6 (Pt able to go from supine to EOB by self. Pt uses FWW for stability on SPT. Concerns for safety. ) Toilet/Commode Transfer (FIM): 6 (Pt completes using BSC and grabbars for stability. Concern for safety. ) Toilet Transfer (QC): 6 Shower Transfer(FIM): 6 (Pt completes using grabbars and shower bench for stability. Concerns for safety. ) Other Treatment Pt maneuvered to therapy gym at w/c level. Pt completed arm bike 15 min/20 kumar resistance and 4 UE exercises/10x/3sets increasing UE strength and activity tolerance needed for transfers and daily functional tasks. Pt maneuvered self by to room at w/c level. After therapy, pt at w/c level in room with call light/phone within reach. All needs met in room. OT Short Term Goals Short Term Goals Time Frame: Nov 28, 2017 Toileting(FIM): 4 Toilet/Commode Transfer(FIM): 4 Additional Short Term Goals: 1-Demonstrate ADL Tasks, 2-Verbalize Understanding , 3-ImproveStrength/Main 1=Demonstrate adherence to instructed precautions during ADL tasks. 2=Patient will verbalize/demonstrate understanding of assistive devices/ modifications for ADL. 3=Patient will improve strength/tolerance for activity to enable patient to perform ADL's. OT [employer] Goals Nursing Home Goals Time Frame: Dec 09, 2017 Eating (FIM): 7 Eating (QC): 6 Groomin Oral Hygiene (QC): 6 Bathing(FIM): 6 Shower/Bathe Self (QC): 6 Upper Body Dressing(FIM): 6 Upper Body Dressing (QC): 6 Lower Body Dressing(FIM): 6 Lower Body Dressing (QC): 6 On/Off Footwear (QC): 6 Toileting(FIM): 6 Toileting Hygiene (QC): 6 Toilet/Commode Transfer(FIM): 6 Toilet/Commode Transfer (QC): 6 Shower Transfer(FIM): 6 Additional Goals: 1-Demonstrate ADL Tasks, 2-Verbalize Understanding, 3- ImproveStrength/Main 1=Demonstrate adherence to instructed precautions during ADL tasks. 2=Patient will verbalize/demonstrate understanding of assistive devices/ modifications for ADL. 3=Patient will improve strength/tolerance for activity to enable patient to perform ADL's. OT Education/Plan Problem List/Assessment Pt would benefit from skilled OT to increase her independence in basic self care after a fall with ankle fracture, Discharge Recommendations Plan/Recommendations: Continue POC Treatment Plan/Plan of Care Patient would benefit from OT for education, treatment and training to promote independence in ADL's, mobility, safety and/or upper extremity function for ADL' s. Plan of Care: ADL Retraining, Functional Mobility, UE Funct Exercise/Act, UE Neuromus Re-Ed/Coord, OTHER (energy conservation education) Treatment Duration: Dec 09, 2017 Frequency: At least 5 of 7 days/Wk (IRF) Estimated Hrs Per Day: 1.5 hours per day Agreement: Yes Rehab Potential: Good Time/GCodes Start Time: 08:05 Stop Time: 09:35 Total Time Billed (hr/min): 90 Billed Treatment Time 1 visit- ADL 4 (60min) Ex 2 (30 min) GLADIS JACK Dec 05, 2017 10:18
--- NOTE | 2017-12-05 12:07 | Physical Therapy Daily Note ---
PT Daily Note-Current Subjective Pt sitting in [facility] in room upon arrival. Pt agrees to PT but reports not sleeping well last night. Pain Numeric Pain Scale: 3 Location: Right Location Body Site: Ankle Pain Description: Ache Comment: Pt reports some achiness with intermittent pain with movement. Mental Status Patient Orientation: Person, Place, Time, Situation Attachments: Other-See Comments (Cast on RLE) Transfers Functional [place] Measure 0=Not Assessed/NA 4=Minimal Assistance 1=Total Assistance 5=Supervision or Setup 2=Maximal Assistance 6=Modified [place] 3=Moderate Assistance 7=Complete IndependenceIRFPAI Quality Coding Scale 6 Independent with activity with or without an assistive device 5 Patient requires set up or clean up by helper. Patient completes activity by themselves 4 Supervision or touching assist (CGA). [place] provide cues , steadying assist 3 The helper provides less than half the effort to complete the activity 2 The helper provides more than half the effort to complete the activity 1 Dependent. The helper does all the effort to complete an activity 7 Patient refused to complete or attempt activity 9 The patient did not perform the activity before the current illness or injury 88 Not attempted due to Medical conditions or safety concerns Scootin Rollin Roll Left to Right (QC): 5 Supine to/from Sit: 5 Sit to/from Stand: 5 Sit to Lying (QC): 5 Sit to Stand (QC): 5 Chair/Joy-hl-Erytx Xfer(QC): 5 Bed to/from Chair: 5 Weight Bearing Right Lower Extremity: Right Touch Toe Bearing Left Lower Extremity: Left Full Weight Bearing Gait Training Does the Patient Walk?: Yes Distance (FIM): 3=489-66 ft Distance: 50' Walk 10 feet (QC): 4 Walk 50 ft with 2 Turns(QC): 4 Gait Level of Assist: 4 Gait Persons Needed: 1 Gait Assistive Device: FWW Pt walks with a hop to gait pattern. Pt fatigues easily due to required UE strength to help support pt. Pt can only walk short distances. Wheelchair Training Does the Pt Use a Wheelchair?: Yes Wheelchair Distance: 3=150 ft Distance: 175' Wheelchair Level of Assist: 5 Wheel 50 ft with 2 turns (QC): 5 Wheel 150 ft (QC): 5 Type of Wheelchair: Manual Exercises Supine Ex: Ankle pumps, Quad Set, Glut sets, Heel Slides, Hip abd/add Supine Reps: 20 Seated Therapy Exercises: Ankle pumps, Long arc quads, Hip flexion, Kicking activity, Hip abd/add Seated Reps: 20 Treatments Pt transfers at A and ambulates in hallway as well as to Therapy Gym using FWW at [facility] due to quick fatigue of UE. Pt completes both Supine Ex on mat and Seated Ex in WC. Pt also completes a couple of Figure 8s in WC before returning to room. Pt uses restroom then returns to recliner to rest with all needs met. Assessment Current Status: Good Progress Pt has improved with proficiency of transfers but still continues to only be able to ambulate short distances due to weakness with UE. PT Short Term Goals Short Term Goals Wheelchair Distance: 150' PT Completions Engineer Goals Completions Engineer Goals PT Intermediate Goals Time Frame: Dec 09, 2017 Transfers (B,C,W/C) (FIM): 6 Sit to Lying (QC): 6 Lying-Sitting on Side/Bed(QC): 6 Sit to Stand (QC): 6 Rollin Roll Left to Right (QC): 6 Chair/Vfu-wr-Czmev Xfer(QC): 6 Car Transfer (QC): 6 Does the Patient Walk: No and Walking Goal IS indicated Gait (FIM): 1 Gait distance (FIM): 1=up to 49 ft Distance: 10' Walk 10 feet (QC): 5 Walk 10ft-Uneven Surface(QC): 88 Walk 50ft with 2 Turns (QC): 88 Walk 150 ft (QC): 88 Gait Level of Assist: 5 Gait Assistive Device: FWW Wheelchair (FIM): 6 Wheelchair distance (FIM): 2=470-30 ft Distance: 125' Wheelchair Level of Assist: 6 Wheel 50 feet with 2 turns (QC: 6 Stairs (FIM): 2 # of Steps: 4 1 Step (curb) (QC): 3 4 Steps (QC): 3 12 Steps (QC): 88 Stairs Level Of Assist: 3 Picking up an Object (QC): 5 PT Plan Problem List Problem List: Activity Tolerance, Functional Strength, Safety, Gait Treatment/Plan Treatment Plan: Continue Plan of Care Treatment Plan: Bed Mobility, Concurrent Therapy, Education, Functional Activity Main, Functional Strength, Group Therapy, Gait, Safety, Therapeutic Exercise, Transfers Treatment Duration: Dec 09, 2017 Frequency: At least 5 of 7 days/Wk (IRF) Estimated Hrs Per Day: 1.5 hours per day Patient and/or Family Agrees t: Yes Safety Risks/Education Patient Education: Gait Training, Transfer Techniques, Correct Positioning, W/ C Management, Safety Issues Teaching Recipient: Patient Teaching Methods: Discussion Response to Teaching: Verbalize Understanding Time/GCodes Time In: 1100 Time Out: 1200 Total Billed Treatment Time: 60 Total Billed Treatment 1, WCH (20m), FA (10m) & EX x2 (30m) G Codes Necessary: MILANA Stroud PTA Dec 05, 2017 12:07
--- NOTE | 2017-12-05 15:00 | Physical Therapy Daily Note ---
PT Daily Note-Current Subjective Patient states she feels she is doing all she can do here and desires to return to home this week. PT will consult with OT and SW. Pain Numeric Pain Scale: 0-No Pain Location: No Pain Reported Mental Status Patient Orientation: Normal For Age Transfers Functional [place] Measure 0=Not Assessed/NA 4=Minimal Assistance 1=Total Assistance 5=Supervision or Setup 2=Maximal Assistance 6=Modified [place] 3=Moderate Assistance 7=Complete IndependenceIRFPAI Quality Coding Scale 6 Independent with activity with or without an assistive device 5 Patient requires set up or clean up by helper. Patient completes activity by themselves 4 Supervision or touching assist (CGA). [place] provide cues , steadying assist 3 The helper provides less than half the effort to complete the activity 2 The helper provides more than half the effort to complete the activity 1 Dependent. The helper does all the effort to complete an activity 7 Patient refused to complete or attempt activity 9 The patient did not perform the activity before the current illness or injury 88 Not attempted due to Medical conditions or safety concerns Transfers (B, C, W/C) (FIM): 5 Scootin Rollin Roll Left to Right (QC): 6 Supine to/from Sit: 6 Sit to/from Stand: 5 Sit to Lying (QC): 5 Sit to Stand (QC): 5 Chair/Peq-ym-Udvts Xfer(QC): 5 Bed to/from Chair: 5 Patient will require a bed side commode secondary to bed room on separate level than bath. Weight Bearing Right Lower Extremity: Right Touch Toe Bearing Left Lower Extremity: Left Full Weight Bearing Gait Training Does the Patient Walk?: No and Walking Goal IS indicated Gait (FIM): 1 Distance (FIM): 1=up to 49 ft Distance: 10' x 3 Walk 10 feet (QC): 4 Walk 50 ft with 2 Turns(QC): 88 Walk 150 ft (QC): 88 Walking 10ft/uneven surface-QC: 88 Gait Level of Assist: 4 Gait Persons Needed: 1 Gait Assistive Device: FWW Patient has difficulty with "hopping" with FWW use due to NWB right LE. Wheelchair Training Does the Pt Use a Wheelchair?: Yes Wheelchair (FIM): 5 Wheelchair Distance: 3=150 ft Distance: 150' x 2/50' x 1 Wheelchair Level of Assist: 5 Wheel 50 ft with 2 turns (QC): 5 Wheel 150 ft (QC): 5 Type of Wheelchair: Manual spouse assist PRN Assessment PT and patient/spouse discussed PT concerns with patient returning to home with spouse and "friend" utilizing w/c for 4 steps family room to 1st level. Patient and spouse reassure this PT that "they have this". PT continued to educated patient and spouse on difficulty with this maneuver, however, they continued to dismiss PT concern. SW notified of patient's desire to return to home this week. Patient will benefit from home health intervention upon dismissal. PT Short Term Goals Short Term Goals Wheelchair Distance: 175' PT Retail Link Analyst Goals Retail Link Analyst Goals PT Retail Link Analyst Goals Time Frame: Dec 09, 2017 Transfers (B,C,W/C) (FIM): 6 Sit to Lying (QC): 6 Lying-Sitting on Side/Bed(QC): 6 Sit to Stand (QC): 6 Rollin Roll Left to Right (QC): 6 Chair/Ygh-ip-Dfmol Xfer(QC): 6 Car Transfer (QC): 6 Does the Patient Walk: No and Walking Goal IS indicated Gait (FIM): 1 Gait distance (FIM): 1=up to 49 ft Distance: 10' Walk 10 feet (QC): 5 Walk 10ft-Uneven Surface(QC): 88 Walk 50ft with 2 Turns (QC): 88 Walk 150 ft (QC): 88 Gait Level of Assist: 5 Gait Assistive Device: FWW Wheelchair (FIM): 6 Wheelchair distance (FIM): 5=210-57 ft Distance: 125' Wheelchair Level of Assist: 6 Wheel 50 feet with 2 turns (QC: 6 Stairs (FIM): 2 # of Steps: 4 1 Step (curb) (QC): 3 4 Steps (QC): 3 12 Steps (QC): 88 Stairs Level Of Assist: 3 Picking up an Object (QC): 5 PT Plan Treatment/Plan Treatment Plan: Continue Plan of Care Treatment Plan: Bed Mobility, Concurrent Therapy, Education, Functional Activity Main, Functional Strength, Group Therapy, Gait, Safety, Therapeutic Exercise, Transfers Treatment Duration: Dec 09, 2017 Frequency: At least 5 of 7 days/Wk (IRF) Estimated Hrs Per Day: 1.5 hours per day Patient and/or Family Agrees t: Yes Discharge Recommendations Equpiment Recommendations-D/C: 3 in 1 Commode (required due to bedroom is on separate level of restroom) Time/GCodes Time In: 1401 Time Out: 1431 Total Billed Treatment Time: 31 Total Billed Treatment 1 visit [facility] 21 min GT 10 min KAELYN PAREDES PT Dec 05, 2017 15:00
[2017-12-05 15:25] VITALS: BP 108/68
[2017-12-05] MEDS: KCL 10 MEQ TAB (MICRO K) PO SCH (16:30)
[2017-12-05 21:00] VITALS: BP 107/66
[2017-12-05] MEDS: HYDROCHLOROTHIAZIDE 12.5 MG (HCTZ) CAP PO SCH (21:00)
[2017-12-05] MEDS: POLYETHYLENE GLYCOL 17 GM (MIRALAX) PACK PO SCH (21:15)
[2017-12-05] MEDS: traZODone 50 MG (DESYREL) TAB PO SCH (21:18)
[2017-12-05] MEDS: ASPIRIN E.C. 81 MG (ECOTRIN) TAB PO SCH (21:18)
[2017-12-05] MEDS: SIMvastatin 10 MG (ZOCOR) TAB PO SCH (21:19)
[2017-12-05] MEDS: LEVOTHYROXINE 75 MCG (LEVOTHROID) TABLET PO SCH (21:21)
[2017-12-05] MEDS: ESOMEPRAZOLE 20 MG PO SCH (21:23)
[2017-12-05 22:30] VITALS: BP 102/65
[2017-12-05] MEDS: ATENOLOL 25 MG (TENORMIN) TAB PO SCH (22:32)
[2017-12-06] MEDS: ATENOLOL 25 MG (TENORMIN) TAB PO SCH ×2 (04:42→21:15)
[2017-12-06 05:38] VITALS: BP 118/67
[2017-12-06] MEDS: ENOXAPARIN 40 MG/0.4 ML (LOVENOX) SYR SC SCH (07:03)
--- NOTE | 2017-12-06 07:41 | Progress Note-Standard ---
Standard Progress Note Progress Notes/Assess & Plan Date Seen by Provider: Dec 06, 2017 Time Seen by Provider: 07:40 Progress/Assessment & Plan feeling better RLE--in splint NVI s/p I and D and ORIF r ankle TTWB RLE Final Diagnosis no complaints RLE in splint will change to boot. leave boot on at all times continue TTWB CARLOS MALLOY MD Dec 06, 2017 07:41
--- NOTE | 2017-12-06 08:06 | Progress Note (SOAP) ---
Subjective Time Seen by Provider: 08:04 Subjective/Events-last exam Patient to be put in a boot. Patient sleeping better last night. Heart regular. Objective Exam Vital Signs Date Time Temp Pulse Resp B/P (MAP) Pulse Ox O2 Delivery O2 Flow Rate FiO2 12/06/17 05:38 98.5 66 18 118/67 (84) 98 Room Air 12/05/17 22:30 56 102/65 (77) 12/05/17 21:00 58 107/66 (80) 12/05/17 21:00 Room Air 12/05/17 15:25 98.1 59 16 108/68 (81) 97 Room Air 12/05/17 09:15 Room Air I & O 12/06/17 07:00 Intake Total 1120 ml Balance 1120 ml Capillary Refill : Less Than 3 Seconds General Appearance: No Apparent Distress, WD/WN HEENT: Normal ENT Inspection Neck: Full Range of Motion, Normal Inspection Respiratory: No Accessory Muscle Use, No Respiratory Distress Cardiovascular: Regular Rate, Rhythm Assessment/Plan Assessment/Plan Assess & Plan/Chief Complaint Ankle fracture right. Hypertension. Irregular heartbeat. Coronary artery disease. Hyperlipidemia.. . 11/23/17. Ankle fracture) Hypertension under control. Irregular heartbeat as usual. Coronary artery disease. Hyperlipidemia. . 11/24/17. Right ankle fracture. Hypertension. Coronary artery disease. . square shaking. Right ankle fracture. Hypertension. Coronary artery disease. Heart in sinus rhythm today. . 11/29/17. Right ankle fracture. Hypertension. Coronary artery disease. Heart regular rate rhythm. Patient working at her problem. . 11/30/17. Right ankle fracture. Hypertension. Coronary artery disease. Heart regular today.. . Right ankle fracture. Hypertension. Coronary artery disease. Heart regular today. . 12/04/17. Right ankle fracture. Hypertension. Coronary artery disease. Heart regular rate and rhythm.. . 12/05/17. Right ankle fracture. Hypertension. Coronary artery disease. Heart regular rate and rhythm . . 12/06/17. Patient slept good last night. In insomnia. Right ankle fracture. Hypertension. Coronary artery disease. Heart regular this a.m. Clinical Quality Measures DVT/VTE Risk/Contraindication: Risk Factor Score Per Nursin RFS Level Per Nursing on Admit: 4+=Very High AIME RODRIGUEZ DO Dec 06, 2017 08:06
[2017-12-06] MEDS: DOCUSATE SODIUM 100 MG (COLACE) CAP PO SCH ×2 (08:39→21:14)
--- NOTE | 2017-12-06 08:45 | Occupational Ther Daily Note ---
OT Current Status-Daily Note Subjective Pt alert, lying in bed. Pt agrees to therapy. No c/o pain at this time. Mental Status/Objective Patient Orientation: Person, Place, Time, Situation Functional [place] Measure 0=Not Assessed/NA 4=Minimal Assistance 1=Total Assistance 5=Supervision or Setup 2=Maximal Assistance 6=Modified [place] 3=Moderate Assistance 7=Complete [place] ADL-Treatment Functional [place] Measure 0=Not Assessed/NA 4=Minimal Assistance 1=Total Assistance 5=Supervision or Setup 2=Maximal Assistance 6=Modified [place] 3=Moderate Assistance 7=Complete IndependenceIRFPAI Quality Coding Scale 6 Independent with activity with or without an assistive device 5 Patient requires set up or clean up by helper. Patient completes activity by themselves 4 Supervision or touching assist (CGA). [place] provide cues , steadying assist 3 The helper provides less than half the effort to complete the activity 2 The helper provides more than half the effort to complete the activity 1 Dependent. The helper does all the effort to complete an activity 7 Patient refused to complete or attempt activity 9 The patient did not perform the activity before the current illness or injury 88 Not attempted due to Medical conditions or safety concerns Eating (FIM): 7 (Pt able to complete set up and uses regular utensils to feed self.) Eating (QC): 6 Grooming (FIM): 6 (At w/c level, pt able to complete grooming.) Oral Hygiene (QC): 6 Bathing (FIM): 6 (Using grabbar, long handle sponge, shower chair and hand held shower pt able to complete shower/drying.) Bathing Location: L Arm, R Arm, L Upper Leg, R Upper Leg, L Lower Leg ( including foot), R Lower Leg (including foot) (In cast), Chest, Abdomen, Buttocks, Perineal Area Shower/Bathe Self (QC): 6 Upper Body (FIM): 6 (Retrieves clothing with w/c. Dresses upper body by self.) Upper Body Dressing (QC): 6 Lower Body Dressing (FIM): 6 (Retrieves clothing with w/c. Dresses upper body by self using AE.) Lower Body Dressing (QC): 6 On/Off Footwear (QC): 6 Toileting (FIM): 6 (Using grabbar, elevated toilet seat with arm rests and w/c pt able to complete by self.) Toileting Hygiene (QC): 6 Transfers (B, C, W/C) (FIM): 6 (Using w/c and FWW pt is able to transfer from surface to surface.) Toilet/Commode Transfer (FIM): 6 (Using grabbar, BSC and w/c pt able to complet transfer by self.) Toilet Transfer (QC): 6 Shower Transfer(FIM): 6 (Using w/c, grabbar and shower bench pt able to complete by self.) Other Treatment Discussed and educated pt on kitchen safety. Pt verbalized understanding and demonstrated mobility in kitchen. PA came to change pt into walking boot. After therapy, pt sitting in w/c with call light/phone in reach. All needs met in room. Education OT Patient Education: Safety issues, Transfer techniques, W/C management Teaching Recipient: Patient Teaching Methods: Demonstration, Discussion Response to Teaching: Verbalize Understanding, Return Demonstration OT Short Term Goals Short Term Goals Time Frame: Nov 28, 2017 Toileting(FIM): 4 Toilet/Commode Transfer(FIM): 4 Additional Short Term Goals: 1-Demonstrate ADL Tasks, 2-Verbalize Understanding , 3-ImproveStrength/Main 1=Demonstrate adherence to instructed precautions during ADL tasks. 2=Patient will verbalize/demonstrate understanding of assistive devices/ modifications for ADL. 3=Patient will improve strength/tolerance for activity to enable patient to perform ADL's. OT Jail Goals Police Dispatcher Goals Time Frame: Dec 09, 2017 Eating (FIM): 7 (met-12/06/17) Eating (QC): 6 (met-12/06/17) Groomin (met-12/06/17) Oral Hygiene (QC): 6 (met-12/06/17) Bathing(FIM): 6 (met-12/06/17) Shower/Bathe Self (QC): 6 (met-12/06/17) Upper Body Dressing(FIM): 6 (met-12/06/17) Upper Body Dressing (QC): 6 (met-12/06/17) Lower Body Dressing(FIM): 6 (met-12/06/17) Lower Body Dressing (QC): 6 (met-12/06/17) On/Off Footwear (QC): 6 (met-12/06/17) Toileting(FIM): 6 (met-12/06/17) Toileting Hygiene (QC): 6 (met-12/06/17) Toilet/Commode Transfer(FIM): 6 (met-12/06/17) Toilet/Commode Transfer (QC): 6 (met-12/06/17) Shower Transfer(FIM): 6 (met-12/06/17) Additional Goals: 1-Demonstrate ADL Tasks, 2-Verbalize Understanding, 3- ImproveStrength/Amin 1=Demonstrate adherence to instructed precautions during ADL tasks. 2=Patient will verbalize/demonstrate understanding of assistive devices/ modifications for ADL. 3=Patient will improve strength/tolerance for activity to enable patient to perform ADL's. OT Education/Plan Problem List/Assessment Pt would benefit from skilled OT to increase her independence in basic self care after a fall with ankle fracture, Discharge Recommendations Plan/Recommendations: Continue POC Treatment Plan/Plan of Care Patient would benefit from OT for education, treatment and training to promote independence in ADL's, mobility, safety and/or upper extremity function for ADL' s. Plan of Care: ADL Retraining, Functional Mobility, UE Funct Exercise/Act, UE Neuromus Re-Ed/Coord, OTHER (energy conservation education) Treatment Duration: Dec 09, 2017 Frequency: At least 5 of 7 days/Wk (IRF) Estimated Hrs Per Day: 1.5 hours per day Agreement: Yes Rehab Potential: Good Time/GCodes Start Time: 08:00 Stop Time: 09:30 Total Time Billed (hr/min): 90 Billed Treatment Time 1 visit-ADL 4 (60 min) FA 2 (30 min) GLADIS JACK Dec 06, 2017 08:45
--- NOTE | 2017-12-06 09:07 | PM & R (SOAP) Progress Note ---
Subjective This was a face to face visit with the patient. Date Seen by Provider: Dec 06, 2017 Time Seen by Provider: 07:45 Subjective/Events-last exam Patient was seen in her room this AM Patient SBA charles transfers SW contacted me yesterday re planned discharge tomorrow to home with family.Will discuss details at Team Conference later today Objective Physician Exam Last Set of Vital Signs Vital Signs Date Time Temp Pulse Resp B/P (MAP) Pulse Ox O2 Delivery O2 Flow Rate FiO2 12/06/17 05:38 98.5 66 18 118/67 (84) 98 Room Air Capillary Refill : Less Than 3 Seconds I&O Intake and Output 12/06/17 00:00 Intake Total 1440 ml Balance 1440 ml Intake Oral 1440 ml # Voids 5 General: Alert, Oriented X3, Cooperative, No Acute Distress HEENT: Atraumatic, PERRLA, EOMI, Mucous Memb Moist/[place] Neck: Supple, No JVD Lungs: Clear to Auscultation Heart: Regular Rate Abdomen: Normal Bowel Sounds, Soft Extremities: Other (Dressing rt ankle) Neuro: Other (Functional strength Sensation intact Cognition intact) Assessment/Plan Assessment and Plan Rt Ankle fracture s/p repair DR Elizabeth HTN controlled Postop anemia DVT Prophylaxis on Lovenox subcut Plan Continue PT/OT Team Conference later today-see report for full functional update and POC and confirm discharge plans with team at that time. Co-Morbidities that are continuing to impact the rehab process: (include details ) JACI RITTER MD Dec 06, 2017 09:07
--- NOTE | 2017-12-06 10:54 | D/C HH Face to Face Order ---
D/C Face to Face Orders Instructions for Patient Patient Instructions/FollowUp: Dr. Elizabeth Physician to follow Patient: Dr. Elizabeth Discharge Diet for Home: Regular Diet Patient Data-Allergies,Ht & Wt Patient Allergies: Coded Allergies: codeine (Unverified Allergy, Unknown, 11/20/17) Height (Feet): 5 Height (Inches): 3.00 Weight (Pounds): 200 Weight (Ounces): 9.0 Home Health Need/Face to Face Date of Face to Face: Dec 07, 2017 Clinical Findings: Generalized weakness and fatigue, Muscle weakness, Unsteady gait I have seen Pt [id number]: Yes Discharged To: Home Diagnosis/Conditions: L ankle fracture, TTWB Patient is Homebound due to: [place] fall risk due to instabilty, Muscle weakness , Non-weight bearing Homebound Status Due to the above stated illness, injury or surgical procedure (medical condition or diagnosis) and associated clinical findings, the patient is homebound because of his/her inability to leave home except with aid of a supportive device and/or person AND leaving the home requires a considerable and taxing effort or is medically contraindicated. Pt req the following assistanc: Walker, Wheelchair Home Health Nursing Orders Home Health Services Order: Field Examiner-Evaluate & Treat, Physical Therapy-Evaluate & Treat Home Health Infusion Therapy Line Type: [place] Lock Site Location: Antecubital Therapy Orders Therapy Orders: OT (must have SN or PT order), Physical Therapy Therapy Specific Orders: Eval assistive deivces, Teach enviro modifications/ safety, Gait training, Increase strength/endurance [facility] cert[facility] that this patient is under my care and that I, a nurse practitioner or a physician; a dental hygiene administrative assistant working with me, had a face to face encounter that - meets the physician face to face encounter requirements with this patient as dated. I personally scribed for JACI RITTER MD ([facility]) on 12/06/17 at 10:54. Electronically submitted by Jesenia Aj ([id number]). JACI RITTER MD Dec 06, 2017 10:54
--- NOTE | 2017-12-06 12:09 | Physical Therapy Daily Note ---
PT Daily Note-Current Subjective Pt sitting at table in [facility] upon arrival. Pt agrees to PT for FIM scoring for discharge tomorrow. Pain Numeric Pain Scale: 3 Location: Right Location Body Site: Ankle Pain Description: Ache Mental Status Patient Orientation: Person, Place, Time, Situation Transfers Functional [place] Measure 0=Not Assessed/NA 4=Minimal Assistance 1=Total Assistance 5=Supervision or Setup 2=Maximal Assistance 6=Modified [place] 3=Moderate Assistance 7=Complete IndependenceIRFPAI Quality Coding Scale 6 Independent with activity with or without an assistive device 5 Patient requires set up or clean up by helper. Patient completes activity by themselves 4 Supervision or touching assist (CGA). [place] provide cues , steadying assist 3 The helper provides less than half the effort to complete the activity 2 The helper provides more than half the effort to complete the activity 1 Dependent. The helper does all the effort to complete an activity 7 Patient refused to complete or attempt activity 9 The patient did not perform the activity before the current illness or injury 88 Not attempted due to Medical conditions or safety concerns Transfers (B, C, W/C) (FIM): 6 Scootin Rollin Roll Left to Right (QC): 6 Supine to/from Sit: 6 Sit to/from Stand: 6 Sit to Lying (QC): 6 Sit to Stand (QC): 6 Chair/Uss-qw-Wlonw Xfer(QC): 6 Bed to/from Chair: 6 Car Transfer (QC): 6 Weight Bearing Right Lower Extremity: Right Touch Toe Bearing Left Lower Extremity: Left Full Weight Bearing Gait Training Does the Patient Walk?: Yes Gait (FIM): 2 Distance (FIM): 1=up to 49 ft Distance: 5', 5' Walk 10 feet (QC): 5 Walk 50 ft with 2 Turns(QC): 88 Walk 150 ft (QC): 88 Walking 10ft/uneven surface-QC: 88 Gait Level of Assist: 5 Gait Persons Needed: 1 Gait Assistive Device: FWW Pt fatigues easily and demonstrates BUE weakness. Pt has hop to gait pattern due to WB status. Wheelchair Training Does the Pt Use a Wheelchair?: Yes Wheelchair (FIM): 6 Wheelchair Distance: 3=150 ft Distance: 500' Wheelchair Level of Assist: 6 Wheel 50 ft with 2 turns (QC): 6 Wheel 150 ft (QC): 6 Type of Wheelchair: Manual Stair Training Stairs (FIM): 88 Pt is unable to complete any steps at this time due to lack of strength to safely support because of WB status. Balance Picking up an Object (QC): 88 Special Test Comments Pt is unable to keep balance to attempt. Treatments Pt completes transfers, short distance ambulation, WCH mobility & car transfer to score for FIM scoring. Pt returns to room to use BSC at end of tx with all needs met. Assessment Current Status: Fair Progress Pt is limited by WB status and demonstrated weakness in UE. PT Short Term Goals Short Term Goals Wheelchair Distance: 150' x 2/50' x 1 PT Biometric Fingerprinting Technician Goals Ch[facility] Goals PT Chcf Goals Time Frame: Dec 09, 2017 Transfers (B,C,W/C) (FIM): 6 Sit to Lying (QC): 6 Lying-Sitting on Side/Bed(QC): 6 Sit to Stand (QC): 6 Rollin Roll Left to Right (QC): 6 Chair/Lks-lk-Vadcl Xfer(QC): 6 Car Transfer (QC): 6 Does the Patient Walk: No and Walking Goal IS indicated Gait (FIM): 1 Gait distance (FIM): 1=up to 49 ft Distance: 10' Walk 10 feet (QC): 5 Walk 10ft-Uneven Surface(QC): 88 Walk 50ft with 2 Turns (QC): 88 Walk 150 ft (QC): 88 Gait Level of Assist: 5 Gait Assistive Device: FWW Wheelchair (FIM): 6 Wheelchair distance (FIM): 4=527-39 ft Distance: 125' Wheelchair Level of Assist: 6 Wheel 50 feet with 2 turns (QC: 6 Stairs (FIM): 2 # of Steps: 4 1 Step (curb) (QC): 3 4 Steps (QC): 3 12 Steps (QC): 88 Stairs Level Of Assist: 3 Picking up an Object (QC): 5 PT Plan Problem List Problem List: Activity Tolerance, Functional Strength, Safety, Gait Treatment/Plan Treatment Plan: Continue Plan of Care Treatment Plan: Bed Mobility, Concurrent Therapy, Education, Functional Activity Main, Functional Strength, Group Therapy, Gait, Safety, Therapeutic Exercise, Transfers Treatment Duration: Dec 09, 2017 Frequency: At least 5 of 7 days/Wk (IRF) Estimated Hrs Per Day: 1.5 hours per day Patient and/or Family Agrees t: Yes Safety Risks/Education Patient Education: Gait Training, Transfer Techniques, Correct Positioning, W/ C Management, Safety Issues Teaching Recipient: Patient Teaching Methods: Discussion Response to Teaching: Verbalize Understanding Time/GCodes Time In: 1100 Time Out: 1200 Total Billed Treatment Time: 60 Total Billed Treatment 1, [facility] x2 (30m) & FA x2 (30m) G Codes Necessary: MILANA Stroud PTA Dec 06, 2017 12:09
[2017-12-06] MEDS ORDERED: OXYC1TAB87 PO (14:27)
[2017-12-06] MEDS ORDERED: TRAZ-189 PO (14:27)
--- NOTE | 2017-12-06 15:42 | Physical Therapy Daily Note ---
PT Daily Note-Current Subjective Pt sitting in recliner upon arrival. Pt agrees to PT. Pain Location: No Pain Reported Mental Status Patient Orientation: Person, Place, Time, Situation Attachments: Other-See Comments (R Walking boot but no change in WB status) Transfers Functional [place] Measure 0=Not Assessed/NA 4=Minimal Assistance 1=Total Assistance 5=Supervision or Setup 2=Maximal Assistance 6=Modified [place] 3=Moderate Assistance 7=Complete IndependenceIRFPAI Quality Coding Scale 6 Independent with activity with or without an assistive device 5 Patient requires set up or clean up by helper. Patient completes activity by themselves 4 Supervision or touching assist (CGA). [place] provide cues , steadying assist 3 The helper provides less than half the effort to complete the activity 2 The helper provides more than half the effort to complete the activity 1 Dependent. The helper does all the effort to complete an activity 7 Patient refused to complete or attempt activity 9 The patient did not perform the activity before the current illness or injury 88 Not attempted due to Medical conditions or safety concerns Scootin Rollin Roll Left to Right (QC): 6 Supine to/from Sit: 6 Sit to/from Stand: 6 Sit to Lying (QC): 6 Sit to Stand (QC): 6 Chair/Lnm-qr-Gfiab Xfer(QC): 6 Bed to/from Chair: 6 Weight Bearing Right Lower Extremity: Right Touch Toe Bearing Left Lower Extremity: Left Full Weight Bearing Treatments Pt transfers from recliner to standing at Mod I using FWW. Pt completes Bed Mobility for FIM scoring. Pt & Sp go over discharge questions with HOME VISITOR HOME BASE HEAD START. Verified with Medical Administrative Technician that equipment will be delivered tomorrow morning before pt discharges. Assessment Current Status: Good Progress Pt is still anxious and unsure of herself about discharging but reports wanting to go home. PT Short Term Goals Short Term Goals Wheelchair Distance: 500' PT Public Information Officer Goals Nursing Home Goals PT Nursing Home Goals Time Frame: Dec 09, 2017 Transfers (B,C,W/C) (FIM): 6 Sit to Lying (QC): 6 Lying-Sitting on Side/Bed(QC): 6 Sit to Stand (QC): 6 Rollin Roll Left to Right (QC): 6 Chair/Rtk-jp-Upbcn Xfer(QC): 6 Car Transfer (QC): 6 Does the Patient Walk: No and Walking Goal IS indicated Gait (FIM): 1 Gait distance (FIM): 1=up to 49 ft Distance: 10' Walk 10 feet (QC): 5 Walk 10ft-Uneven Surface(QC): 88 Walk 50ft with 2 Turns (QC): 88 Walk 150 ft (QC): 88 Gait Level of Assist: 5 Gait Assistive Device: FWW Wheelchair (FIM): 6 Wheelchair distance (FIM): 1=656-11 ft Distance: 125' Wheelchair Level of Assist: 6 Wheel 50 feet with 2 turns (QC: 6 Stairs (FIM): 2 # of Steps: 4 1 Step (curb) (QC): 3 4 Steps (QC): 3 12 Steps (QC): 88 Stairs Level Of Assist: 3 Picking up an Object (QC): 5 PT Plan Problem List Problem List: Activity Tolerance, Functional Strength, Gait Treatment/Plan Treatment Plan: Continue Plan of Care Treatment Plan: Bed Mobility, Concurrent Therapy, Education, Functional Activity Main, Functional Strength, Group Therapy, Gait, Safety, Therapeutic Exercise, Transfers Treatment Duration: Dec 09, 2017 Frequency: At least 5 of 7 days/Wk (IRF) Estimated Hrs Per Day: 1.5 hours per day Patient and/or Family Agrees t: Yes Safety Risks/Education Patient Education: Gait Training, Transfer Techniques, Correct Positioning, W/ C Management, Safety Issues Teaching Recipient: Patient, Significant Other Teaching Methods: Demonstration Response to Teaching: Verbalize Understanding Time/GCodes Time In: 1415 Time Out: 1445 Total Billed Treatment Time: 30 Total Billed Treatment 1, FA x2 (30m) G Codes Necessary: MILANA Stroud PTA Dec 06, 2017 15:42
[2017-12-06] MEDS: KCL 10 MEQ TAB (MICRO K) PO SCH (16:41)
[2017-12-06 18:00] VITALS: BP 128/78
[2017-12-06 21:00] VITALS: BP 128/77
[2017-12-06] MEDS: POLYETHYLENE GLYCOL 17 GM (MIRALAX) PACK PO SCH (21:00)
[2017-12-06] MEDS: HYDROCHLOROTHIAZIDE 12.5 MG (HCTZ) CAP PO SCH (21:00)
[2017-12-06] MEDS: traZODone 50 MG (DESYREL) TAB PO SCH (21:15)
[2017-12-06] MEDS: ASPIRIN E.C. 81 MG (ECOTRIN) TAB PO SCH (21:15)
[2017-12-06] MEDS: LEVOTHYROXINE 75 MCG (LEVOTHROID) TABLET PO SCH (21:15)
[2017-12-06] MEDS: SIMvastatin 10 MG (ZOCOR) TAB PO SCH (21:16)
[2017-12-06] MEDS: ESOMEPRAZOLE 20 MG PO SCH (21:19)
[2017-12-06] MEDS: oxyCODONE/APAP 5/325MG (PERCOCET 5) TABLET PO PRN (21:20)
[2017-12-07 06:00] VITALS: BP 144/81
[2017-12-07] MEDS: ENOXAPARIN 40 MG/0.4 ML (LOVENOX) SYR SC SCH (07:04)
[2017-12-07] MEDS: DOCUSATE SODIUM 100 MG (COLACE) CAP PO SCH (08:41)
--- NOTE | 2017-12-07 10:36 | Therapy Team Discharge Summary ---
Therapy Discharge Summary Discharge Recommendations Date of Discharge Therapy D/C Recommendations: Home w/ Family Support, Occupational Therapy Home Care, Physical Therapy Home Care Occupational Therapy Pt was seen for skilled OT to increase her independence in basic self care to allow her to safely return home after R ankle fx with WB restrictions. On admission she was independent with eating, needed setup for grooming and upper body dressing, needed min assist with bathing and lower body dressing, mod assist with toilet transfers and max assist toileting. By discharge she had progressed to independent with eating and modified independent with all other basic ADLs, using w/c, BSC, grab bars, hand held shower, long handled sponge and assistive devices for lower body dressing. See tx plan for goals met. Recommend home health OT. DC OT Decreased Activ Tolerance, Decreased UE Strength, Dependent Transfers, Impaired Self-Care Skills PT Half-Way Goals Half-Way Goals PT Half-Way Goals Time Frame: Dec 09, 2017 Transfers (B,C,W/C) (FIM): 6 Roll Left to Right (QC): 6 Sit to Lying (QC): 6 Lying-Sitting on Side/Bed(QC): 6 Sit to Stand (QC): 6 Chair/Bed-xu-Wlzad Xfer(QC): 6 Car Transfer (QC): 6 Does the Patient Walk: No and Walking Goal IS indicated Gait (FIM): 1 Gait distance (FIM): 1=up to 49 ft Distance: 10' Walk 10 feet (QC): 5 Walk 10ft-Uneven Surface(QC): 88 Walk 50ft with 2 Turns (QC): 88 Walk 150 ft (QC): 88 Gait Level of Assist: 5 Gait Assistive Device: FWW Wheelchair (FIM): 6 Wheelchair distance (FIM): 9=594-71 ft Distance: 125' Wheelchair Level of Assist: 6 Wheel 50 feet with 2 turns (QC: 6 Stairs (FIM): 2 # of Steps: 4 1 Step (curb) (QC): 3 4 Steps (QC): 3 12 Steps (QC): 88 Stairs Level Of Assist: 3 Picking up an Object (QC): 5 OT Half-Way Goals Half-Way Goals Time Frame: Dec 09, 2017 Eating (FIM): 7 (met-12/06/17) Eating (QC): 6 (met-12/06/17) Oral Hygiene (QC): 6 (met-12/06/17) Grooming(FIM): 6 (-12/06/17) Bathing(FIM): 6 (-12/06/17) Shower/Bathe Self (QC): 6 (-12/06/17) Upper Body Dressing(FIM): 6 (-12/06/17) Upper Body Dressing (QC): 6 (-12/06/17) Lower Body Dressing(FIM): 6 (-12/06/17) Lower Body Dressing (QC): 6 (-12/06/17) On/Off Footwear (QC): 6 (-12/06/17) Toileting(FIM): 6 (-12/06/17) Toileting Hygiene (QC): 6 (-12/06/17) Toilet/Commode Transfer(FIM): 6 (met-12/06/17) Toilet/Commode Transfer (QC): 6 (-12/06/17) Shower Transfer(FIM): 6 (-12/06/17) Additional Goals: 1-Demonstrate ADL Tasks, 2-Verbalize Understanding, 3- ImproveStrength/Main 1=Demonstrate adherence to instructed precautions during ADL tasks. 2=Patient will verbalize/demonstrate understanding of assistive devices/ modifications for ADL. 3=Patient will improve strength/tolerance for activity to enable patient to perform ADL's. [address] OT Dec 07, 2017 10:36
[2017-12-07 13:29] VITALS: BP 144/81
--- NOTE | 2017-12-07 15:39 | Therapy Team Discharge Summary ---
Therapy Discharge Summary Discharge Recommendations Date of Discharge Dec 07, 2017 at 13:36 Therapy D/C Recommendations: Home w/ Family Support, Occupational Therapy Home Care, Physical Therapy Home Care Physical Therapy This patient was transferred to ARU from acute post repair of a right ankle fracture. She has been TTWB throughout the course of her therapy. Prior to fall with fracture, she was indep with all functional mobility. Upon admit to this unit, she was mod assist with transfers, only able to hop twice with assist and required max assist with wc mobility. treatment has focused extensively on transfer training and education and training in prep to return home. She has performed ther ex, balance, functional activity tolerance and safety training. She has made progress although still unable to effectively hop. She is mod indep with transfers, able to hop 5 ft with FWW TTWB with assist, she is mod indep with wheelchair mobiltiy; she is unable to perform steps at this time. Pt to discharge home with family with [facility] PT to follow. DC from ARU at this time. Occupational Therapy Decreased Activ Tolerance, Decreased UE Strength, Dependent Transfers, Impaired Self-Care Skills PT Penitentiary Goals Penitentiary Goals PT Penitentiary Goals Time Frame: Dec 09, 2017 Transfers (B,C,W/C) (FIM): 6 (mdt) Roll Left to Right (QC): 6 Sit to Lying (QC): 6 Lying-Sitting on Side/Bed(QC): 6 Sit to Stand (QC): 6 Chair/Pnc-sx-Rxffp Xfer(QC): 6 Car Transfer (QC): 6 Does the Patient Walk: No and Walking Goal IS indicated Gait (FIM): 1 (scored a 2) Gait distance (FIM): 1=up to 49 ft Distance: 10' Walk 10 feet (QC): 5 Walk 10ft-Uneven Surface(QC): 88 Walk 50ft with 2 Turns (QC): 88 Walk 150 ft (QC): 88 Gait Level of Assist: 5 Gait Assistive Device: FWW Wheelchair (FIM): 6 (met) Wheelchair distance (FIM): 8=458-38 ft Distance: 125' Wheelchair Level of Assist: 6 Wheel 50 feet with 2 turns (QC: 6 Stairs (FIM): 2 # of Steps: 4 1 Step (curb) (QC): 3 4 Steps (QC): 3 12 Steps (QC): 88 Stairs Level Of Assist: 3 Picking up an Object (QC): 5 (unsafe to attempt) OT Penitentiary Goals Chemical Detection Expert Goals Time Frame: Dec 09, 2017 Eating (FIM): 7 (-12/06/17) Eating (QC): 6 (met-12/06/17) Oral Hygiene (QC): 6 (met-12/06/17) Grooming(FIM): 6 (met-12/06/17) Bathing(FIM): 6 (met-12/06/17) Shower/Bathe Self (QC): 6 (met-12/06/17) Upper Body Dressing(FIM): 6 (met-12/06/17) Upper Body Dressing (QC): 6 (met-12/06/17) Lower Body Dressing(FIM): 6 (met-12/06/17) Lower Body Dressing (QC): 6 (met-12/06/17) On/Off Footwear (QC): 6 (met-12/06/17) Toileting(FIM): 6 (met-12/06/17) Toileting Hygiene (QC): 6 (met-12/06/17) Toilet/Commode Transfer(FIM): 6 (met-12/06/17) Toilet/Commode Transfer (QC): 6 (met-12/06/17) Shower Transfer(FIM): 6 (met-12/06/17) Additional Goals: 1-Demonstrate ADL Tasks, 2-Verbalize Understanding, 3- ImproveStrength/Main 1=Demonstrate adherence to instructed precautions during ADL tasks. 2=Patient will verbalize/demonstrate understanding of assistive devices/ modifications for ADL. 3=Patient will improve strength/tolerance for activity to enable patient to perform ADL's. GLADIS PLATT PT Dec 07, 2017 15:39
--- NOTE | 2017-12-07 17:56 | PM & R (SOAP) Progress Note ---
Subjective This was a face to face visit with the patient. Date Seen by Provider: Dec 07, 2017 Time Seen by Provider: 10:00 Subjective/Events-last exam Patient was discharged to home with family and HHC today,has progressed well ortho switched patient over to boot yesterday Objective Physician Exam Last Set of Vital Signs Vital Signs Date Time Temp Pulse Resp B/P (MAP) Pulse Ox O2 Delivery O2 Flow Rate FiO2 12/07/17 13:29 59 18 144/81 96 Room Air 12/07/17 06:00 97.8 Capillary Refill : Less Than 3 Seconds I&O Intake and Output 12/07/17 00:00 Intake Total 1120 ml Balance 1120 ml Intake Oral 1120 ml # Voids 7 # Bowel Movements 1 General: Alert, Oriented X3, Cooperative, No Acute Distress HEENT: Atraumatic, PERRLA, EOMI, Mucous Memb Moist/Despard Neck: Supple, No JVD Lungs: Clear to Auscultation Heart: Regular Rate Abdomen: Normal Bowel Sounds, Soft Extremities: Other (Dressing rt ankle) Neuro: Other (Functional strength Sensation intact Cognition intact) Assessment/Plan Assessment and Plan Home today with HHC and Family Current meds reviewed F/U with PCP and ortho See orders Co-Morbidities that are continuing to impact the rehab process: (include details ) JACI RITTER MD Dec 07, 2017 17:56
--- NOTE | 2017-12-20 01:58 | DISCHARGE SUMMARY ---
DATE OF SERVICE: 12/07/2017 HISTORY OF PRESENT ILLNESS: The patient is a 77-year-old female who lives in [place], [place] with her spouse, who is working on her swimming pool when she slipped and fell and sustained an open right ankle fracture with medial traumatic laceration. The patient was admitted to [facility], Dr. Elizabeth orthopedics who did repair. Patient was made toe-touch weightbearing postoperatively. She underwent emergency irrigation and debridement of right ankle and open ORIF with right lateral malleolus and excision of medial malleolus fragment and closure of complex laceration. She had been independent prior to this. She was referred to inpatient rehabilitation unit. PAST MEDICAL HISTORY: Hypertension. She is followed by a physician in [place]. MEDICAL COURSE: The patient was followed by Dr. Munoz, Dr. Laurent, and Dr. Elizabeth while on rehab unit. She progressed well with the therapy. She was afebrile during her stay. Blood pressure on 12/07/2017 was 144/81, respirations 18, pulse 59, O2 sat 96% on room air. CBC on 11/23/2017 showed WBC 9.4, H and H 10.2/31, platelet count 274,000. Chemistry on 11/23/2017 within normal limits. REHABILITATION COURSE: She progressed well with her therapy. She had increased strength and endurance, decreased pain. She was seen by speech therapy upon admission and found to be cognitively intact and they signed off. The patient continued on Lovenox subq for DVT prophylaxis. OT notes that upon admission, she was independent with eating, needed set up for grooming and upper body dressing, needed min assist with bathing, lower body dressing, mod assist for toilet transfers and max assist for toileting. By discharge, she had progressed to independent with eating and modified independent with all other basic ADLs. PT notes upon admission, she was mod assist for transfers, only able to hop twice with assist and required max assist with wheelchair mobility. Upon discharge, she has made good progress and is modified independent with transfers, able to hop 5 feet with front wheel walker, toe touch weightbearing with assistance. She is modified independent with wheelchair mobility. She will be going home with family and home healthcare. DISCHARGE INSTRUCTIONS: She is discharged to home with home health care. She will follow up with orthopedics and her PCP. Continue current diet and weightbearing status, which is toe-touch weightbearing, right lower extremity with ankle in splint. DISCHARGE MEDICATIONS: Percocet 5/325 generic 1-2 tablets p.o. q.4 hours p.r.n. moderate pain, trazodone 50 mg p.o. each day at bedtime, ASA 81 mg p.o. each day at bedtime, atenolol 12.5 mg p.o. at bedtime, Nexium 20 mg p.o. each day at bedtime, levothyroxine 75 mcg p.o. each day at bedtime, lysine 500 mg p.o. each day at bedtime, KCl 10 mEq p.o. each day at bedtime, pravastatin 10 mg p.o. each day at bedtime. Prescription for standard wheelchair with wheelchair cushion elevating leg rest on the left was provided. DISCHARGE DIAGNOSES: 1. Rehabilitation grade I displaced open right ankle fracture due to a slip fall at home. 2. Traumatic laceration, medial ankle fracture. 3. Hypertension. 4. Irregular heartbeat. Medications adjusted. 5. Coronary artery disease. 6. Hyperlipidemia. 7. Postoperative anemia. 8. Status post left total knee replacement. 9. Slip fall at home. CONDITION AT DISCHARGE: Improved and stable. PROGNOSIS: Rehab prognosis appears good for continued improvement at home, return to independent living once her weightbearing status is advanced to as tolerated by orthopedics on an outpatient basis. Job ID: [id number] DocumentID: [id number] Dictated Date: 12/19/2017 10:36:13 Yarn [employer]acker Date: 12/19/2017 23:00:35 Dictated By: JACI MUNOZ MD
== END 2017-12-07 13:36 | disposition home health service (06) | DRG 561 ==
PROVIDERS: ADMIT Physical Medicine & Rehabilitation; ATTEND Physical Medicine & Rehabilitation
DX: S82.851E Displaced trimalleolar fracture of right lower leg, subsequent encounter for open fracture type I or II with routine healing (principal); S81.811D Laceration without foreign body, right lower leg, subsequent encounter; I10 Essential (primary) hypertension; R00.9 Unspecified abnormalities of heart beat; I25.10 Atherosclerotic heart disease of native coronary artery without angina pectoris; E78.5 Hyperlipidemia, unspecified; D64.9 Anemia, unspecified; Z96.652 Presence of left artificial knee joint; W01.0XXD Fall on same level from slipping, tripping and stumbling without subsequent striking against object, subsequent encounter; Y92.016 Swimming-pool in single-family (private) house or garden as the place of occurrence of the external cause
CPT/HCPCS: 36415; 80048; 85027

== ENCOUNTER 2018-04-18 13:45 | Outpatient (RCR) | payer MEDICARE, OTHER ==
[~2018-04-18 13:45] MED LIST changes: +TRAZ-189 PO
== END 2018-04-26 | disposition home or self-care (01) ==
PROVIDERS: ATTEND Orthopaedic Surgery
DX: S82.851D Displaced trimalleolar fracture of right lower leg, subsequent encounter for closed fracture with routine healing (principal); W01.0XXD Fall on same level from slipping, tripping and stumbling without subsequent striking against object, subsequent encounter

== ENCOUNTER 2018-05-16 11:07 | Outpatient (RCR) | payer MEDICARE, OTHER | END 2018-05-17 13:47 | disposition home or self-care (01) | PROVIDERS: ATTEND Orthopaedic Surgery | DX: S82.851D Displaced trimalleolar fracture of right lower leg, subsequent encounter for closed fracture with routine healing (principal); W01.0XXD Fall on same level from slipping, tripping and stumbling without subsequent striking against object, subsequent encounter ==